=== PATIENT | male | born 1960 | race Caucasian/White ===

== ENCOUNTER 2021-07-25 20:07 | Emergency (ER) | payer MEDICARE, MEDICAID, SELFPAY ==
[2021-07-25 20:15] VITALS: BP 154/76; BP 159/85; PULSE 82; PULSE 91; RESP 20; TEMP 36.6; O2SAT 97; BMI 33.5
--- NOTE | 2021-07-25 21:17 | ED_ITS ---
HPI - Eye Problem General Chief complaint: General Medical Stated complaint: R eye pain/swelling, N/V Time Seen by Provider: 07/25/21 21:16 Source: patient Mode of arrival: EMS Limitations: no limitations History of Present Illness HPI Narrative: Patient no significant past medical history came by EMS for complaining of pain behind the right eye associated with nausea/vomiting denies abdominal pain no history of migraine no fever no chills no focal weakness , p[ain started at 16:00 sudden onset with stabbing feeling behind the right eye had some photopsia and blurred vision. Patient does have a history of hyp ertension, prostate cancer, chronic prednisone treatment, ankylosing spondylosis and hypertension has not seen eye doctor for a while Related Data Allergies Allergy/AdvReac Type Severity Reaction Status Date / Time Penicillins Allergy Unknown Verified 07/25/21 20:18 Review of Systems Review of Systems: Yes all other systems are reviewed and are negative PMFSH Past Medical History Medical History (Updated 07/26/21 @ 01:02 by Alfred Santana MD) Ankylosing spondylitis Crohn's disease Hypertension Iritis Prostate CA Social History Social History Alcohol intake: never Patient Tobacco Use Status: Former Tobacco user Use of substances other than those prescribed or required for medical reasons: No Advance Directives: No Advance Directives Information Provided: Yes Physical Exam Vital Signs: Vital Signs: Last Vital Signs Temp 97.9 F 07/25/21 21:25 Pulse 74 07/26/21 00:00 Resp 16 07/26/21 00:00 BP 124/75 07/26/21 00:00 Pulse Ox 94 07/26/21 00:00 Body Mass Index 33.5 Const: General: cooperative and healthy appearing Nutritional Appearance: average body habitus Orientation/consciousness: patient oriented x3 Limitations: no limitations HENMT: Head: Yes normal to inspection and Yes normocephalic Ears: hearing grossly normal bilaterally General nose exam: Normal external nose present Face and sinus: Yes normal facial exam Mouth: Normal oral and palatal mucosa present Eyes: General: appearance normal, both eyes and all related structures Visual Bellamy: normal visual bellamy by confrontation Eyelids: Yes eyelids normal Conjunctivae: conjunctivae normal Sclerae: sclerae normal Corneas: corneas normal Pupils: Dilated pupils (3 mm sluggish to react) on t he right and Other pupil findings (IOP R eye 60, L eye 25) EOM: EOMs intact bilaterally Direct Ophthalmoscopy: normal light reflex, no photophobia and optic disc abnormality (Very blurry disc) on the right Neck: Neck: Yes normal visual inspection Resp: Effort & Inspection: normal respiratory effort Auscultation: clear to auscultation bilaterally Cardio: Palpation: normal PMI Rate: regular rate Rhythm: regular rhythm Heart sounds: S1 normal heart sound present and S2 normal heart sound present GI: Inspection: Yes normal to inspection Palpation (GI): Soft to palpation and nontender Neuro: General: patient oriented x3 and no focal motor deficits Course Reevaluation(s) Reevaluation #1: One drop of timolol maleate 1 drop of apraclonidine instilled in the right eye and 1 drop of timolol maleate in left eye also Time: 22:15 Reevaluation #2: Patient continued to have elevated IOP eyedrops repeated 2 times last IOP was 40. Dr. Sommers want him to examine but our slit lamp is not working so Patient was taken by Dr. Sommers to his office Time: 01:05 MDM - Eye Problem MDM Narrative Medical decision making narrative: Patient with acute narrowing all glaucoma right eye with severe pain started about 6 hours ago on arrival IUP on the right eye was 60 and left was 20 mm Hg. 1 drop of each timolol and Apraclonidine instilled in the right eye case discussed Dr. Sommers advised to recheck the pressure in 30 minutes and mean cell on the drop and to call him if pressure does not decrease Slit lamp is not working Dr. Sommers will take the patient to his office Lab Data Result diagrams: 07/25/21 23:30 07/25/21 23:30 Labs: Lab Results 07/25/21 07/25/21 07/25/21 Range/Units 23:30 23:30 23:30 WBC 18.0 H (4.8-10.8) X10*3/uL RBC 3.47 L (4.60-5.80) X10*6/uL Hgb 8.1 L (14.0-18.0) g/dl Hct 27.6 L (42-52) % MCV 79.5 L (80-98) fL MCH 23.3 L (27.0-33.0) pg MCHC 29.3 L (31.0-36.0) g/dl RDW 20.5 H (11.0-16.0) % Plt Count 298 (160-400) X10*3/uL MPV 8.7 L (9.4-12.4) fL Immature Gran % (Auto) 1.1 H (0.0-0.4) % Neut % (Auto) 83.0 H (45-73) % Lymph % (Auto) 6.1 L (20-40) % [place] % (Auto) 9.6 (2-11) % Eos % (Auto) 0.0 (0-4) % Baso % (Auto) 0.2 (0-2) % Lymph # (Auto) 1.1 L (1.2-4.9) X10*3/uL [place] # (Auto) 1.7 H (0.1-1.2) X10*3/uL Eos # (Auto) 0.0 (0.0-0.4) X10*3/uL Baso # (Auto) 0.0 (0.0-0.2) X10*3/uL Abs Immat Gran (auto) 0.20 H (0.00-0.03) X10*3/uL Absolute Neuts (auto) 14.9 H (2.0-8.3) X10*3/uL Absolute Nucleated RBC 0.000 (0.0-0.012) X10*3/uL Nucleated RBC % (auto) 0.0 (0.0-0.2) /100WBC Smear Tech's Comments VERIFIED ESR 33 H (0-15) MM/HR Sodium 141 (135-145) mmol/L Potassium 5.2 H (3.3-5.1) mmol/L Chloride 107 (96-108) mmol/L Carbon Dioxide 26 (22-29) mmol/L Anion Gap 13 (12-20) BUN 19 H (9-16) mg/dL Creatinine 0.94 (0.5-1.4) mg/dL Estim Creat Clear Calc 82.7 Estimated GFR > 60 Random Glucose 131 H (60-115) mg/dL Calcium 9.1 (8.4-10.2) mg/dL Critical Care Time Critical Care Time Critical Care Time: Yes Total Critical Care Time: 40 Attestation: I spent 40 minutes of critical care, with interventions, assessments, speaking to patient, consultants Discharge Plan Discharge Clinical Impression: Glaucoma (increased eye pressure) Qualifiers: Glaucoma type: primary angle-closure Primary angle closure glaucoma type: acute Laterality: right Qualified Code(s): H40.211 - Acute angle-closure glaucoma, right eye Patient Disposition: Home, Self-Care Instructions: Glaucoma (ED) Additional Instructions: See Dr. Sommers in the office now Interventions: ED Discharge Assessment Last Done: 07/26/21 01:10 Discharge Date/Time: 07/26/21 01:10
[2021-07-25 21:25] VITALS: BP 143/77; PULSE 82; RESP 18; TEMP 36.6; O2SAT 97
--- NOTE | 2021-07-25 21:56 | PC.NURSE ---
PATIENT SEEN BY ER PROVIDER, ORDERS FOR EYE DROPS, CONTACTING PHARMACY FOR MEDICATIONS DUE TO NOT CARRYING THEM HERE IN THE ER. PHARMACY STATING THEY WILL BE BRING IT SHORTLY. PATIENT IS ALERT AND ABLE TO COMMUNICATE NEEDS. AWAITING MEDICATIONS
--- NOTE | 2021-07-25 22:15 | PC.NURSE ---
DR. BOONE TALKING TO DR PRIETO FOR CONSULT REGARDING PATIENTS EYE. PRESSURE IN THE RIGHT EYE WAS 60 PER , MD GIVING EYE DROPS TO PATIENT AND THEN WILL REPEAT PRESSURE. IF STILL HIGH THEN MD WILL CONTACT DR. PRIETO AGAIN.
[2021-07-25] MEDS: timoloL maleate 0.5 % Oph Sol 5 ML DRBTL 1 DROP EYE-BOTH (22:25)
[2021-07-25] MEDS: Apraclonidine HCl 1 % Oph Sol 1 EACH DROPERETTE 1 DROP EYE-RIGHT (22:25)
[2021-07-25] MEDS: acetaZOLAMIDE 250 MG TABLET 500 MG PO (22:36)
[2021-07-25 23:36] LABS: Basophils Percent Auto 0.2 % (0-2); Hematocrit 27.6 % (42-52); Hemoglobin 8.1 g/dl (14.0-18.0); Imm Gran Pct Auto 1.1 % (0.0-0.4); Lymphocytes Absolute Auto 1.1 X10*3/uL (1.2-4.9); Lymphocytes Percent Auto 6.1 % (20-40); MANUAL DIFF FLAG SCAN; Mean Corpuscular HGB Conc 29.3 g/dl (31.0-36.0); Mean Corpuscular Hemoglobin 23.3 pg (27.0-33.0); Mean Corpuscular Volume 79.5 fL (80-98); Mean Platelet Volume 8.7 fL (9.4-12.4); Monocytes Absolute Auto 1.7 X10*3/uL (0.1-1.2); Monocytes Percent Auto 9.6 % (2-11); Neutrophils Absolute Auto 14.9 X10*3/uL (2.0-8.3); Platelet Count 298 X10*3/uL (160-400); Red Blood Count 3.47 X10*6/uL (4.60-5.80); Red Cell Distribution Width 20.5 % (11.0-16.0); SCAN SMEAR FLAG 1
[2021-07-25 23:38] LABS: SLIDE REVIEW VERIFIED
[2021-07-25 23:54] LABS: Anion Gap 13 (12-20); Blood Urea Nitrogen 19 mg/dL (9-16); Calcium 9.1 mg/dL (8.4-10.2); Carbon Dioxide 26 mmol/L (22-29); Chloride 107 mmol/L (96-108); Creatinine Clr Calc Pharmacy 82.7; Estimated Glomerular Filt Rate > 60; Glucose Random 131 mg/dL (60-115); Potassium 5.2 mmol/L (3.3-5.1); Sodium 141 mmol/L (135-145)
[2021-07-26] VITALS: BP 124/75; PULSE 74; RESP 16; O2SAT 94
[2021-07-26 00:13] LABS: Erythrocyte Sedimentation Rate 33 MM/HR (0-15)
--- NOTE | 2021-07-26 00:41 | PC.NURSE ---
PLAN OF CARE FOR DR. PRIETO TO COME EVALUATE PATIENT.
--- NOTE | 2021-07-26 01:13 | PC.NURSE ---
DR. PRIETO ARRIVED, EQUIPMENT HERE IN DEPARTMENT WAS NOT WORKING WELL. PROVIDER WANTING PATIENT TRANSPORTED TO [address] BY WHEELCHAIR WITH ER STAFF. DISCUSSING THE SITUATION WITH DK RN IN CHARGE AND SHE MAKING THE MONORAIL HELPER AWARE OF SITUATION AND FACT THAT THIS HAS PREVIOUSLY OCCURRED WITH THIS SPECIFIC DOCTOR IN WHICH RISK MANAGEMENT HAS BEEN INVOLVED. EXPLAINING THAT ER STAFF CAN NOT TRANSPORT ER PATIENTS DOWN THE DRIVE AND BETWEEN BUILDINGS. DISCUSSING ISSUE WITH THE PROVIDERS AND THE PLAN OF CARE WILL BE TO DISCHARGE PATIENT FROM EMERGENCY DEPARTMENT AND HAVE THE PATIENT TRANSPORT SELF OVER TO [address] WHEN DISCHARGING PATIENT, DR. PRIETO TAKING PATIENT HIMSELF OVER FROM EMERGENCY DEPARTMENT TO [address] BY HIMSELF.
== END 2021-07-26 01:10 | disposition home or self-care (01) ==
PROVIDERS: Emergency Provider Internal Medicine
DX: H40.211 Acute angle-closure glaucoma, right eye (principal); I10 Essential (primary) hypertension
CPT/HCPCS: 36415; 80048; 85025; 85652; 99284

== ENCOUNTER 2022-07-18 02:25 | Emergency (ER) | payer MEDICARE, MEDICAID, SELFPAY ==
[2022-07-18 02:36] VITALS: BP 179/87; BP 180/100; PULSE 85; PULSE 90; RESP 18; TEMP 36.5; O2SAT 96; O2SAT 98; BMI 33.5
--- NOTE | 2022-07-18 03:21 | ED_ITS ---
HPI - Eye Problem General Chief complaint: Eye Problems Stated complaint: VISION CHAMGE Time Seen by Provider: 07/18/22 03:20 Source: patient Mode of arrival: ambulatory Limitations: no limitations History of Present Illness HPI Narrative: Patient with history of narrow angle glaucoma was seen here in 07/26 for acute glaucoma seen by eye doctor but not prescribe any medications comes here for both eye pain for last few days with blurred vision similar to that what happened last year Related Data Allergies Allergy/AdvReac Type Severity Reaction Status Date / Time Penicillins Allergy Unknown Verified 07/25/21 20:18 Review of Systems Review of Systems: Yes all other systems are reviewed and are negative [facility] Past Medical History Medical History Ankylosing spondylitis Crohn's disease Hypertension Iritis Prostate CA Social History Social History Alcohol intake: never Patient Tobacco Use Status: Former Tobacco user Advance Directives: No Physical Exam Vital Signs: Vital Signs: Last Vital Signs Temp 97.7 F 07/18/22 02:36 Pulse 71 07/18/22 06:28 Resp 18 07/18/22 06:28 BP 144/68 H 07/18/22 06:28 Pulse Ox 98 07/18/22 06:28 O2 Del Method 07/18/22 06:28 BMI result Body Mass Index 33.5 Appearance: Alert. Oriented X3. No acute distress. Eyes: PERRLA, No Nystagmus unable to see fundus IOP 66 in right eye and 60 in left eye blurred vision able to see hand and count fingers ENT: Pharynx normal. Oral Mucosa moist Neck: Normal inspection. Neck supple. CVS: Normal heart rate and rhythm. Pulses normal. Respiratory: No respiratory distress. Equal air entry bilateral, no wh eezing/rales/rhonchi Abdomen: Soft and nontender. Bowel sounds are present, no mass palpable, no CVA tenderness Skin: Skin warm and dry. Normal skin color. Normal skin turgor. Extremities: No lower extremity edema. No calf tenderness Neuro: Oriented X 3. No motor deficit. No sensory deficit.No cerebellar signs , cranial nerves II-XII intact Course Reevaluation(s) Reevaluation #1: IOP in right eye 56, left eye 44 after 50 min of 1st dose of apraclonidine and timolol Time: 05:15 Reevaluation #2: IOP right eye 29 left eye [address] Sommers will likely see him in the office at 08:00 o'clock will call the ER once he reaches office patient feeling better feel chest pressure blurred visions also improved Time: 07:00 Critical Care Time Critical Care Time Critical Care Time: Yes Total Critical Care Time: 40 Attestation: I spent 40 minutes of critical care, with interventions, assessments, speaking to patient, consultants, and family. Discharge Plan Discharge Clinical Impression: Acute glaucoma of both eyes Patient Disposition: Still a Patient
[2022-07-18 04:13] VITALS: BP 159/79; PULSE 75; RESP 18
[2022-07-18] MEDS: timoloL maleate 0.5 % Oph Sol 5 ML DRBTL 1 DROP EYE-BOTH (04:22)
[2022-07-18] MEDS: Apraclonidine HCl 1 % Oph Sol 1 EACH DROPERETTE 1 DROP EYE-BOTH (04:22)
[2022-07-18 06:28] VITALS: BP 144/68; PULSE 71; RESP 18; O2SAT 98
--- NOTE | 2022-07-18 06:54 | PC.NURSE ---
pt initial IOP 66 in right eye, 55 in left eye. repeat after 1 hr post eyedrops, IOP down to 56 in R eye and 44 in L eye. repeat after 1hr post second round of eyedrops, IOP down to 29 in R eye and 21 in L eye. pt to go to Dr. Barraza around 0800 this morning for follow up.
[2022-07-18 07:18] VITALS: BP 120/80; PULSE 67; RESP 24; TEMP 36.7; O2SAT 94
== END 2022-07-18 07:58 | disposition home or self-care (01) ==
PROVIDERS: Emergency Provider Internal Medicine
DX: H40.9 Unspecified glaucoma (principal); H57.13 Ocular pain, bilateral
CPT/HCPCS: 99283

== ENCOUNTER 2022-07-18 11:36 | Outpatient (REF) | payer MEDICARE, MEDICAID, SELFPAY ==
[2022-07-18 11:41] VITALS: BMI 33.5
[2022-07-18 11:42] VITALS: BP 146/87; PULSE 79; RESP 16; TEMP 36.8; O2SAT 99
== END 2022-07-18 11:37 | disposition home or self-care (01) ==
LOC: HO.MS 11:36
PROVIDERS: Visit Provider Ophthalmology
PROC: (CPT 66761; principal; 2022-07-18 12:00)
DX: H40.031 Anatomical narrow angle, right eye (principal); M45.9 Ankylosing spondylitis of unspecified sites in spine; I10 Essential (primary) hypertension; Z79.899 Other long term (current) drug therapy; Z88.0 Allergy status to penicillin
CPT/HCPCS: 66761; 99283

== ENCOUNTER 2022-07-22 14:43 | Outpatient (REF) | payer MEDICARE, MEDICAID, SELFPAY ==
[2022-07-22 14:50] VITALS: BMI 33.5
[2022-07-22 14:52] VITALS: BP 159/89; PULSE 93; RESP 16; TEMP 36.6; O2SAT 95
== END 2022-07-22 14:44 | disposition home or self-care (01) ==
LOC: HO.MS 14:43
PROVIDERS: Visit Provider Ophthalmology
PROC: (CPT 66761; principal; 2022-07-22 14:50)
DX: H40.032 Anatomical narrow angle, left eye (principal); H20.9 Unspecified iridocyclitis; I10 Essential (primary) hypertension; C61 Malignant neoplasm of prostate; R60.9 Edema, unspecified; Z88.0 Allergy status to penicillin; Z87.891 Personal history of nicotine dependence; Z79.899 Other long term (current) drug therapy
CPT/HCPCS: 66761

== ENCOUNTER 2022-08-31 09:37 | Outpatient (REF) | payer MEDICARE, MEDICAID, SELFPAY ==
[2022-08-31 11:05] LABS: Prostate Specific Antigen 10.76 ng/mL (<0.05-4.0)
== END 2022-08-31 09:38 | disposition home or self-care (01) ==
LOC: HO.LAB 09:37
PROVIDERS: PCP Internal Medicine; Visit Provider Urology
DX: C61 Malignant neoplasm of prostate (principal)
CPT/HCPCS: 36415; 84153

== ENCOUNTER 2023-10-08 14:28 | Inpatient (IN) | payer MEDICARE, MEDICAID, SELFPAY ==
[2023-10-08 14:34] VITALS: BP 160/0; PULSE 100; O2SAT 100
[2023-10-08 15:01] VITALS: BP 114/79; PULSE 98; RESP 20; TEMP 37.1; O2SAT 96; BMI 32.6
--- NOTE | 2023-10-08 21:06 | ED.NAVMDI ---
HPI - Nausea/Vomiting/Diarrhea General Chief complaint: Nausea/Vomiting/Diarrhea Stated complaint: +COVID,NAUSEA,VOMITING PER EMS Time Seen by Provider: 10/08/23 14:30 Source: patient, family (Son) and EMS Mode of arrival: EMS Limitations: no limitations History of Present Illness HPI Narrative: A 63-year-old male came in for evaluation of nausea, vomiting, lower abdominal pain, nonbloody watery diarrhea, generalized weakness, unable to take p.o. intake for diarrhea and nausea. Patient with known history of Crohn's disease that he cannot take the medicine due to intractable vomiting and nausea. Patient was tested positive for COVID 2 days ago, patient's is hospitalized currently for COVID. Related Data Allergies Allergy/AdvReac Type Severity Reaction Status Date / Time Penicillins Allergy Unknown Verified 10/08/23 15:03 Review of Systems Review of Systems: All other systems are reviewed and are negative Constitutional: Reports as per HPI and Reports no additional constitutional complaints Eyes: Reports as per HPI and Reports no additional eye complaints Reports system reviewed and no additional complaints, except as documented Cardiovascular: Reports as per HPI and Reports no additional cardiovascular complaints Respiratory: Reports as per HPI and Reports no additional respiratory complaints Gastrointestinal: Reports as per HPI and Reports no additional gastrointestinal complaints Genitourinary: Reports no additional female genitourinary complaints Musculoskeletal: Reports no additional musculoskeletal complaints Skin/Breast: Reports system reviewed and no additional complaints, except as docu Psychiatric: Reports no additional psychiatric complaints Endocrine: Reports no additional endocrine complaints Hematologic/Lymphatic: Reports no additional hematologic/lymphatic complaints Allergic/Immunologic: Reports no additional allergic/immunologic complaints Reports system reviewed and no additional complaints, except as documented and Reports Abnormal speech present PMFSH Past Medical History Onset Date is defined in the Problem List Problems that require an onset date and time if occurred within 24 hrs of arrival to the ED Aortic Dissection and Rupture; Neurologic impairment; Cardiopulmonary Arrest; Endotracheal Intubation; Insertion or Replacement of Mechanical Circulatory Assist Device Medical History Iritis Prostate CA Ankylosing spondylitis Crohn's disease Hypertension Social History Social History Alcohol intake: former Patient Tobacco Use Status: Former Tobacco user Smoked in Last 30 Days: No Use of substances other than those prescribed or required for medical reasons: No Advance Directives: No Advance Directives Information Provided: No Physical Exam Vital Signs: Vital Signs: Last Vital Signs Temp 98.8 F 10/08/23 15:01 Pulse 98 10/08/23 15:01 Resp 20 10/08/23 15:01 BP 114/79 10/08/23 15:01 Pulse Ox 96 10/08/23 15:01 O2 Del Method Room Air 10/08/23 15:01 BMI result Body Mass Index 32.6 Vital signs have been reviewed and appear to be correct. Blood pressure elevated. Heart rate normal. Respiratory rate normal. Temperature normal. Oxygen saturation normal. Appearance: Alert. Oriented X3. No acute distress. Head: Normal external exam. Normocephalic. Atraumatic. No [place] signs noted. No raccoon eyes noted Eyes: PERRLA. EOMI. Conjunctiva and sclera normal. Eyelids normal. ENT: TM's Normal. Pharynx normal. Uvula midline. Moist mucous membranes. No trismus noted. No drooling noted. No muffled voice noted. Neck: Normal inspection. Neck supple. FROM. No adenopathy. Thyroid Normal. No meningeal signs. No neck mass noted. CVS: Normal heart rate and rhythm. Heart sound normal. No murmurs noted. Pulses normal throughout. Respiratory: No respiratory distress. Painless inspiration. Breath sounds normal. No wheezes/rales/rhonchi noted. Chest nontender. No accessory muscle usage noted or decreased air movement noted. Abdomen: Soft, lower abdominal tenderness, no guarding, no rebound tenderness. Bowel sounds normal in all 4 quadrants. No distention noted. No organomegaly noted. No visible injury noted. Back: No CVA tenderness. Full range of motion noted. Skin: Skin warm and dry. Normal skin color. Normal skin turgor. No rashes/lesions/lacerations noted. Extremities: No lower extremity edema. Extremities exhibit normal range of motion. Extremities nontender. Neuro: Oriented X 3. Cranial nerve exam: II-XII are grossly intact No motor deficit. No sensory deficit. Reflexes normal. Course Reevaluation(s) Reevaluation #1: 63-year-old male positive for COVID came in for nausea and vomiting with abdominal pain patient was worry about Crohn's disease exacerbation CT of the abdomen and pelvis showed no exacerbation of Crohn's disease showing bilateral lung infiltrate. Patient meet criteria for SIRS but no severe sepsis or septic shock patient will receive antibiotic and will admit the patient. Time: 00:37 Medications Administered Discontinued Medications Generic Name Dose Route Start Last Admin Trade Name Freq PRN Reason Stop Dose Admin Al Hydroxide/Mg Hydroxide 30 ml 10/08/23 21:03 10/08/23 22:08 Magnesium Hydrox/Alum Hydrox 30 Ml Oral.Susp PO 10/08/23 21:04 30 ml ONCE ONE Administration Famotidine 20 mg 10/08/23 21:03 10/08/23 22:09 Famotidine/Pf 20 Mg/2 Ml Vial IVPUSH 10/08/23 21:04 20 mg ONCE ONE Administration Sodium Chloride 1,000 mls @ 999 mls/hr 10/08/23 21:06 10/09/23 00:08 Ns IV 10/08/23 22:06 Infused .Q1H1M ONE Infusion Ketorolac Tromethamine 30 mg 10/08/23 21:03 10/08/23 22:09 Ketorolac Tromethamine 30 Mg/Ml Vial IVPUSH 10/08/23 21:04 30 mg ONCE ONE Administration Metoclopramide HCl 10 mg 10/08/23 21:05 10/08/23 22:10 Metoclopramide Hcl 10 Mg/2 Ml Vial IVPUSH 10/08/23 21:06 10 mg ONCE ONE Administration Medical Decision Making Differential Diagnosis Differential Diagnoses: The differential diagnosis associated with the presentation includes (Crohn's disease, colitis, pneumonia, pneumothorax, COVID, RSV, influenza, dehydration, electrolyte abnormality, severe anemia.) Admission/Observation Consideration of admission/observation: Escalation of care including admission/observation considered Consult Healthcare Provider Management of the patient was discussed with: Hospitalist (Dr. Lopez) Lab Data MDM Lab Attestation statement: I reviewed the patient's lab results. 10/08/23 15:39 10/08/23 15:39 Labs: Lab Results 10/08/23 10/08/23 Range/Units 15:39 21:19 WBC 12.5 H (4.8-10.8) X10*3/uL RBC 4.56 L (4.60-5.80) X10*6/uL Hgb 13.8 L (14.0-18.0) g/dl Hct 43.0 (42.0-52.0) % MCV 94.3 (80.0-98.0) fL MCH 30.3 (27.0-33.0) pg MCHC 32.1 (31.0-36.0) g/dl RDW 16.9 H (11.0-16.0) % Plt Count 212 (160-400) X10*3/uL MPV 9.9 (9.4-12.4) fL Immature Gran % (Auto) 1.0 H (0.0-0.4) % Neut % (Auto) 82.1 H (45-73) % Lymph % (Auto) 6.8 L (20-40) % [place] % (Auto) 9.9 (2-11) % Eos % (Auto) 0.1 (0-4) % Baso % (Auto) 0.1 (0-2) % Lymph # (Auto) 0.9 L (1.2-4.9) X10*3/uL [place] # (Auto) 1.2 (0.1-1.2) X10*3/uL Eos # (Auto) 0.0 (0.0-0.4) X10*3/uL Baso # (Auto) 0.0 (0.0-0.2) X10*3/uL Abs Immat Gran (auto) 0.12 H (0.00-0.03) X10*3/uL Absolute Neuts (auto) 10.3 H (2.0-8.3) x10*3/uL Absolute Nucleated RBC 0.000 (0.0-0.012) X10*3/uL Nucleated RBC % (auto) 0.0 (0.0-0.2) /100WBC Sodium 141 (135-145) mmol/L Potassium 4.0 D (3.3-5.1) mmol/L Chloride 110 H (96-108) mmol/L Carbon Dioxide 21 L (22-29) mmol/L Anion Gap 14 (12-20) BUN 21 H (9-16) mg/dL Creatinine 1.00 (0.5-1.4) mg/dL Estim Creat Clear Calc 74.8 Estimated GFR > 60 Random Glucose 141 H (60-115) mg/dL Calcium 9.2 (8.4-10.2) mg/dL Magnesium 1.8 (1.6-2.6) mg/dL Total Bilirubin 0.4 (0.0-1.0) mg/dL Direct Bilirubin 0.2 (0.0-0.5) mg/dL AST 25 (5-37) U/L ALT 12 (0-40) U/L Alkaline Phosphatase 48 (39-117) U/L Total Protein 7.7 (6.5-8.0) g/dL Albumin 3.9 (3.5-5.0) g/dL Lipase 27 (8-78) U/L Influenza Type A (PCR) NEGATIVE (Negative) Influenza Type B (PCR) NEGATIVE (Negative) RSV RNA Qual (PCR) NEGATIVE (Negative) SARS-CoV-2 RNA (RT-PCR) POSITIVE A (Negative) Independent Interpretation I performed an independent interpretation of an: Plain X-Ray (Chest:Bibasilar infiltrates, better appreciated on the CT scan. ) and CT Scan (Abdomen& pelvis:1. New patchy airspace disease at both lung bases. Atypical infectious etiology would be favored with this appearance. 2. Chronic appearing changes otherwise as described. ) Radiology Impression Discussion of test interpretation with radiology: I have reviewed the radiologist's reading. Discharge Plan Discharge Clinical Impression: COVID-19 virus infection, Bilateral pneumonia Patient Disposition: Admitted As Inpatient
[2023-10-09 00:51] VITALS: BP 121/79; PULSE 89; RESP 16; TEMP 37.4; O2SAT 93
--- NOTE | 2023-10-09 01:01 | PC.NURSE ---
PT laying in bed, first set of blood cultures obtained as well as lactic acid. Offers no complaints @ this time. VSS. Awaiting bed assignment.
--- NOTE | 2023-10-09 01:13 | PM.IMHP ---
History of Present Illness Date of Service: 10/09/23 Chief Complaint: Fever, cough, diarrhea This is a 63-year-old male with pertinent history of essential hypertension, prostate cancer, psoriasis, Crohn's disease who presents to the emergency department for evaluation of fever, cough, generalized weakness. Patient states his whole family tested positive for COVID-19. His is in admitted at [facility] for COVID-19 pneumonia. He has been having a dry cough that started about 7-10 days prior to presentation. It subsequently changed to being productive over the last 2 days with yellowish sputum production. Has been having associated fevers and chills. Also has been having nausea, vomiting and nonbloody diarrhea. Endorses malaise and generalized body ache. No chest discomfort, palpitations, changes in urinary habits. Admits generalized abdominal discomfort. In the emergency department, patient tested positive for COVID-19. He was found to be septic with imaging concerning for pneumonia. Review of Systems Constitutional: Constitutional: Reports chills, Reports fatigue, Reports fever(s), Reports lethargy, Reports malaise, Reports poor appetite and Reports weakness Cardiovascular: Cardiovascular: Reports no additional cardiovascular complaints Respiratory: Respiratory: Reports cough Gastrointestinal: Gastrointestinal: Reports loose stools, Reports nausea and Reports vomiting Genitourinary: Genitourinary: Reports no additional male genitourinary complaints Musculoskeletal: Musculoskeletal: Reports muscle weakness Neurologic: Reports weakness Endocrine: Endocrine: Reports fatigue [facility] Medical History Iritis Prostate CA Ankylosing spondylitis Crohn's disease Hypertension Pertinent family history: No family history of early CAD Social History Alcohol intake: former Patient Tobacco Use Status: Former Tobacco user Smoked in Last 30 Days: No Use of substances other than those prescribed or required for medical reasons: No Advance Directives: No Advance Directives Information Provided: No Meds Allergies Allergy/AdvReac Type Severity Reaction Status Date / Time Penicillins Allergy Unknown Verified 10/08/23 15:03 Active Medications: Current Medications Azithromycin 500 mg/ Sodium (Chloride) 250 mls @ 125 mls/hr IV ONCE ONE Stop: 10/09/23 02:27 Physical Exam Vital Signs and Narrative: Vital Signs: Last Vital Signs Temp 99.3 F 10/09/23 00:51 Pulse 89 10/09/23 00:51 Resp 16 10/09/23 00:51 BP 121/79 10/09/23 00:51 Pulse Ox 93 10/09/23 00:51 O2 Del Method Room Air 10/09/23 00:51 BMI result Body Mass Index 32.6 Middle-aged male lying in bed in mild distress Neck supple, no JVD Regular rate and rhythm, S1-S2 heard Bilateral crackles without wheezing Abdomen soft nontender, no guarding, no rigidity Patient is awake, alert and oriented to self, place, time and person ; no focal motor deficit Psych: Normal mood No pedal edema Results Labs 10/08/23 15:39 10/08/23 15:39 Labs: Laboratory Results - last 24 hr 10/08/23 10/08/23 15:39 21:19 MCV 94.3 MCH 30.3 MCHC 32.1 RDW 16.9 H Plt Count 212 MPV 9.9 Immature Gran % (Auto) 1.0 H Neut % (Auto) 82.1 H Lymph % (Auto) 6.8 L Schuyler % (Auto) 9.9 Eos % (Auto) 0.1 Baso % (Auto) 0.1 Lymph # (Auto) 0.9 L Schuyler # (Auto) 1.2 Eos # (Auto) 0.0 Baso # (Auto) 0.0 Abs Immat Gran (auto) 0.12 H Absolute Neuts (auto) 10.3 H Absolute Nucleated RBC 0.000 Nucleated RBC % (auto) 0.0 Anion Gap 14 Estim Creat Clear Calc 74.8 Estimated GFR > 60 Random Glucose 141 H Calcium 9.2 Magnesium 1.8 Total Bilirubin 0.4 Direct Bilirubin 0.2 AST 25 ALT 12 Alkaline Phosphatase 48 Total Protein 7.7 Albumin 3.9 Lipase 27 Influenza Type A (PCR) NEGATIVE Influenza Type B (PCR) NEGATIVE RSV RNA Qual (PCR) NEGATIVE SARS-CoV-2 RNA (RT-PCR) POSITIVE A Imaging Radiologist's Impressions: Impressions Abdomen/Pelvis CT 10/08/23 21:21 IMPRESSION: 1. New patchy airspace disease at both lung bases. Atypical infectious etiology would be favored with this appearance. 2. Chronic appearing changes otherwise as described. Chest X-Ray 10/08/23 23:32 IMPRESSION: Bibasilar infiltrates, better appreciated on the CT scan. Assessment and Plan (1) Bilateral pneumonia: Status: Acute (2) COVID-19 virus infection: Status: Acute Plan This is a 63-year-old male with pertinent history of essential hypertension, prostate cancer, psoriasis, Crohn's disease who presents to the emergency department for evaluation of fever, cough, generalized weakness. #. Sepsis due to COVID-19 pneumonia with concerns for bacterial superinfection: Will admit patient and initiate empiric IV antibiotics. Resuscitated with IV crystalloids. Lactic acid and blood culture obtained. Sputum culture pending #. Vomiting and diarrhea, likely in the setting of COVID-19: Supportive care. Obtaining stool studies #. Essential hypertension: Hold antihypertensives in the setting of sepsis, resume as appropriate Med rec pending DVT prophylaxis: Lovenox Full code Admit as inpatient and will require two night minimum hospital stay for IV antibiotics (as above), which is not possible in a lesser acute setting. Quality Stroke Does the patient have a stroke diagnosis?: No VTE Prior VTE?: No VTE Risk Level:: Medical - moderate - high VTE Device Contraindication: Treatment Not Indicated VTE Drug Contraindication: N/A - Med Ordered
[2023-10-09 01:16] LABS: Lactic Acid 0.8 mmol/L (0.5-2.0)
--- NOTE | 2023-10-09 03:40 | MHC.EDTECH ---
[place] [facility] changed into hospital attire, belonging list completed and copy placed on chart. Patient ambulated to bathroom with a steady gait, Urine,and Stool sample was collected and sent to lab.
[2023-10-09 06:14] VITALS: BP 137/91; PULSE 95; RESP 18; TEMP 37.7; O2SAT 95
--- NOTE | 2023-10-09 06:14 | MHC.EDTECH ---
Hourly rounds and vitals completed,patient ambulated to bathroom with a steady gait.call mcdonough within reach
--- NOTE | 2023-10-09 08:17 | PHA.MEDREC ---
Pharmacy Consult ? Medication Reconciliation Pharmacy has completed the medication reconciliation. Spoke to pateint at bedside, he was able to name all medications and timing unprompted. Did note that he takes his sulfasalazine as 4 tabs BID instead of 2 tabs QID. He also states he was due for his Stelara injection yesterday
[2023-10-09 08:23] VITALS: BP 130/81; PULSE 99; RESP 20; TEMP 37.4; O2SAT 93
--- NOTE | 2023-10-09 08:33 | PC.NURSE ---
pt is alert and oriented, skin pwd, respirations even and unlabored, ls clear, pt denies pain at this time, just states not having any appetite-pt did not eat any of his breakfast but is attempting to drink, denies nausea, vs stable
--- NOTE | 2023-10-09 09:28 | HO.PM.IMPN ---
Subjective Subjective Date of Service: 10/09/23 Interval History: diarrhea, feeling weak Physical Exam Vital Signs: Vital Signs: Last Vital Signs Temp 99.9 F 10/09/23 06:14 Pulse 99 10/09/23 08:23 Resp 20 10/09/23 08:23 BP 130/81 10/09/23 08:23 Pulse Ox 93 10/09/23 08:23 O2 Del Method Room Air 10/09/23 08:23 BMI result Body Mass Index 32.6 Appearance: Alert. Oriented X3. No acute distress. Head: Normal external exam. Normocephalic. Atraumatic. No Caballero signs noted. No raccoon eyes noted Eyes: PERRLA. EOMI. Conjunctiva and sclera normal. Eyelids normal. ENT: TM's Normal. Pharynx normal. Uvula midline. Moist mucous membranes. No trismus noted. No drooling noted. No muffled voice noted. Neck: Normal inspection. Neck supple. FROM. No adenopathy. Thyroid Normal. No meningeal signs. No neck mass noted. CVS: Normal heart rate and rhythm. Heart sound normal. No murmurs noted. Pulses normal throughout. Respiratory: No respiratory distress. Painless inspiration. Breath sounds normal. No wheezes/rales/rhonchi noted. Chest nontender. No accessory muscle usage noted or decreased air movement noted. Abdomen: Soft, lower abdominal tenderness, no guarding, no rebound tenderness. Bowel sounds normal in all 4 quadrants. No distention noted. No organomegaly noted. No visible injury noted. Back: No CVA tenderness. Full range of motion noted. Skin: Skin warm and dry. Normal skin color. Normal skin turgor. No rashes/lesions/lacerations noted. Extremities: No lower extremity edema. Extremities exhibit normal range of motion. Extremities nontender. Neuro: Oriented X 3. Cranial nerve exam: II-XII are grossly intact No motor deficit. No sensory deficit. Reflexes normal. Objective Data Active Medications Acetaminophen (Acetaminophen 325 Mg Tablet) 650 mg PO Q6H PRN PRN Reason: Pain, Mild (Pain Scale 1-3) Allopurinol (Allopurinol 100 Mg Tablet) 100 mg PO BEDTIME [facility] Enoxaparin Sodium (Enoxaparin Sodium 40 Mg/0.4 Ml Syringe) 40 mg SUBCUT Q24H ANGELA Last Admin: 10/09/23 08:30 Dose: 40 mg Documented By: MAGGIE Famotidine (Famotidine 20 Mg Tablet) 40 mg PO DAILY [facility] Folic Acid (Folic Acid 1 Mg Tablet) 1 mg PO DAILY [facility] Ceftriaxone Sodium 1 gm/ (Sodium Chloride) 50 mls @ 100 mls/hr IV Q24H [facility] Lisinopril (Lisinopril 20 Mg Tablet) 20 mg PO BID [facility]; Protocol Loperamide HCl (Loperamide Hcl 2 Mg Capsule) 2 mg PO Q4H PRN PRN Reason: Diarrhea Melatonin (Melatonin 3 Mg Tablet) 6 mg PO BEDTIME PRN PRN Reason: Insomnia Ondansetron HCl (Ondansetron Hcl 4 Mg/2 Ml Vial) 4 mg IVPUSH Q8H PRN PRN Reason: Nausea and Vomiting Prednisone (Prednisone 20 Mg Tablet) 60 mg PO DAILY [facility] Sodium Chloride (0.9 % Sodium Chloride Flush 3 Ml Syringe) 3 ml IVFLUSH QSHIFT [facility] Last Admin: 10/09/23 08:25 Dose: 3 ml Documented By: MAGGIE Sulfasalazine (Sulfasalazine 500 Mg Tablet) 2,000 mg PO BID [facility] Vitamin D (Cholecalciferol (Vitamin D3) 25 Mcg Tablet) 50 mcg PO DAILY [facility] Labs 10/09/23 04:56 10/09/23 04:56 Labs: Laboratory Results - last 24 hr 10/08/23 10/08/23 10/09/23 15:39 21:19 00:59 MCV 94.3 MCH 30.3 MCHC 32.1 RDW 16.9 H Plt Count 212 MPV 9.9 Immature Gran % (Auto) 1.0 H Neut % (Auto) 82.1 H Lymph % (Auto) 6.8 L Camp % (Auto) 9.9 Eos % (Auto) 0.1 Baso % (Auto) 0.1 Lymph # (Auto) 0.9 L Camp # (Auto) 1.2 Eos # (Auto) 0.0 Baso # (Auto) 0.0 Abs Immat Gran (auto) 0.12 H Absolute Neuts (auto) 10.3 H Absolute Nucleated RBC 0.000 Nucleated RBC % (auto) 0.0 Anion Gap 14 Estim Creat Clear Calc 74.8 Estimated GFR > 60 Random Glucose 141 H Lactic Acid 0.8 Calcium 9.2 Magnesium 1.8 Total Bilirubin 0.4 Direct Bilirubin 0.2 AST 25 ALT 12 Alkaline Phosphatase 48 Total Protein 7.7 Albumin 3.9 Lipase 27 Urine Color Urine Appearance Urine pH Ur Specific [place] Urine Protein Urine Glucose (UA) Urine Ketones Urine Blood Urine Nitrite Ur Leukocyte Esterase Urine RBC Urine WBC Ur Squamous Epith Cells Urine Bacteria Hyaline Casts Granular Casts Influenza Type A (PCR) NEGATIVE Influenza Type B (PCR) NEGATIVE RSV RNA Qual (PCR) NEGATIVE SARS-CoV-2 RNA (RT-PCR) POSITIVE A 10/09/23 10/09/23 03:37 04:56 MCV 96.5 MCH 30.1 MCHC 31.2 RDW 17.0 H Plt Count 201 MPV 9.9 Immature Gran % (Auto) 0.7 H Neut % (Auto) 83.3 H Lymph % (Auto) 6.9 L Camp % (Auto) 9.0 Eos % (Auto) 0.0 Baso % (Auto) 0.1 Lymph # (Auto) 0.8 L Camp # (Auto) 1.0 Eos # (Auto) 0.0 Baso # (Auto) 0.0 Abs Immat Gran (auto) 0.08 H Absolute Neuts (auto) 9.3 H Absolute Nucleated RBC 0.000 Nucleated RBC % (auto) 0.0 Anion Gap 14 Estim Creat Clear Calc 84.1 Estimated GFR > 60 Random Glucose 107 Lactic Acid Calcium 8.4 D Magnesium Total Bilirubin Direct Bilirubin AST ALT Alkaline Phosphatase Total Protein Albumin Lipase Urine Color Dark Yellow Urine Appearance Turbid Urine pH 5.5 Ur Specific [place] >= 1.030 H Urine Protein 100 (2+) H Urine Glucose (UA) Negative Urine Ketones 15 Urine Blood Trace H Urine Nitrite Positive H Ur Leukocyte Esterase Trace H Urine RBC 3-5 H Urine WBC 0-5 Ur Squamous Epith Cells 3-5 Urine Bacteria 1+ Hyaline Casts 6-10 Granular Casts Present Influenza Type A (PCR) Influenza Type B (PCR) RSV RNA Qual (PCR) SARS-CoV-2 RNA (RT-PCR) Assessment and Plan (1) COVID-19 virus infection: Status: Acute Plan 63M PMH htn, prostate cancer, psoriasis, crohns, recent covid 1 week ptp, presented with weakness, diarrhea viral sepsis due to covid 19 symptomatic management not hypoxic uti rocephin, follow up cultures crohns will double prednisone in acute illness sulfasalazine htn lisinopril dvt prophylaxis - lovenox full code reason for continued hospitalization:still feeling terrible Quality Stroke Does the patient have a stroke diagnosis?: No VTE Prior VTE?: No VTE Risk Level:: Medical - moderate - high VTE Device Contraindication: Treatment Not Indicated VTE Drug Contraindication: N/A - Med Ordered
--- NOTE | 2023-10-09 10:21 | PC.NURSE ---
waiting for pharmacy to bring up a medication
--- NOTE | 2023-10-09 13:20 | PC.NURSE ---
Pt requested lunch tray on arrival to overflow unit, kitchen called by RN
[2023-10-09 14:09] VITALS: BP 120/75; PULSE 82; RESP 18; TEMP 36.6; O2SAT 94
[2023-10-09 16:37] VITALS: BP 113/74; PULSE 88; RESP 19; TEMP 37; O2SAT 94
[2023-10-09 18:54] VITALS: BP 132/72; PULSE 88; RESP 19; TEMP 36.7; O2SAT 94
[2023-10-10] VITALS (8 sets, daily range): BP systolic 118–166; BP diastolic 64–83; PULSE 75–103; RESP 18–20; TEMP 36.1–37.1; O2SAT 92–94
[2023-10-10 08:56] LABS: Anion Gap 11 (12-20); Blood Urea Nitrogen 21 mg/dL (9-16); Calcium 9.1 mg/dL (8.4-10.2); Carbon Dioxide 24 mmol/L (22-29); Chloride 111 mmol/L (96-108); Creatinine Clr Calc Pharmacy 94.7; Estimated Glomerular Filt Rate > 60; Glucose Fasting 73 mg/dL (60-99); Potassium 4.1 mmol/L (3.3-5.1); Sodium 142 mmol/L (135-145)
--- NOTE | 2023-10-10 09:51 | MHC.CM.PN ---
IMM 10/10/23, Pt is independent, he is the caregiver for his , does cooking, cleaning, med management, drives to appts. He has not used [facility], been to [facility] or use med equipment. He will complete HCP here. Family to transport home upon DC. PCP is Lj Hua. CM will follow and assist with DC planning.
--- NOTE | 2023-10-10 10:15 | HO.PM.IMPN ---
Subjective Subjective Date of Service: 10/10/23 Interval History: diarrhea, feeling weak Physical Exam Vital Signs: Vital Signs: Last Vital Signs Temp 98 F 10/10/23 08:00 Pulse 103 H 10/10/23 08:00 Resp 18 10/10/23 08:00 BP 143/77 H 10/10/23 08:00 Pulse Ox 92 10/10/23 08:00 O2 Del Method Room Air 10/10/23 08:00 BMI result Body Mass Index 32.6 Appearance: Alert. Oriented X3. No acute distress. Head: Normal external exam. Normocephalic. Atraumatic. No Caballero signs noted. No raccoon eyes noted Eyes: PERRLA. EOMI. Conjunctiva and sclera normal. Eyelids normal. ENT: TM's Normal. Pharynx normal. Uvula midline. Moist mucous membranes. No trismus noted. No drooling noted. No muffled voice noted. Neck: Normal inspection. Neck supple. FROM. No adenopathy. Thyroid Normal. No meningeal signs. No neck mass noted. CVS: Normal heart rate and rhythm. Heart sound normal. No murmurs noted. Pulses normal throughout. Respiratory: No respiratory distress. Painless inspiration. Breath sounds normal. No wheezes/rales/rhonchi noted. Chest nontender. No accessory muscle usage noted or decreased air movement noted. Abdomen: Soft, lower abdominal tenderness, no guarding, no rebound tenderness. Bowel sounds normal in all 4 quadrants. No distention noted. No organomegaly noted. No visible injury noted. Back: No CVA tenderness. Full range of motion noted. Skin: Skin warm and dry. Normal skin color. Normal skin turgor. No rashes/lesions/lacerations noted. Extremities: No lower extremity edema. Extremities exhibit normal range of motion. Extremities nontender. Neuro: Oriented X 3. Cranial nerve exam: II-XII are grossly intact No motor deficit. No sensory deficit. Reflexes normal. Objective Data Active Medications Acetaminophen (Acetaminophen 325 Mg Tablet) 650 mg PO Q6H PRN PRN Reason: Pain, Mild (Pain Scale 1-3) Last Admin: 10/09/23 19:57 Dose: 650 mg Documented By: ORAL Allopurinol (Allopurinol 100 Mg Tablet) 100 mg PO BEDTIME [facility] Last Admin: 10/09/23 19:51 Dose: 100 mg Documented By: ORAL Enoxaparin Sodium (Enoxaparin Sodium 40 Mg/0.4 Ml Syringe) 40 mg SUBCUT Q24H [facility] Last Admin: 10/10/23 09:26 Dose: 40 mg Documented By: KAMERON Famotidine (Famotidine 20 Mg Tablet) 40 mg PO DAILY [facility] Last Admin: 10/10/23 09:28 Dose: 40 mg Documented By: KAMERON Folic Acid (Folic Acid 1 Mg Tablet) 1 mg PO DAILY [facility] Last Admin: 10/10/23 09:29 Dose: 1 mg Documented By: KAMERON Lisinopril (Lisinopril 20 Mg Tablet) 20 mg PO BID [facility]; Protocol Last Admin: 10/10/23 09:29 Dose: 20 mg Documented By: KAMERON Loperamide HCl (Loperamide Hcl 2 Mg Capsule) 2 mg PO Q4H PRN PRN Reason: Diarrhea Last Admin: 10/10/23 09:26 Dose: 2 mg Documented By: KAMERON Melatonin (Melatonin 3 Mg Tablet) 6 mg PO BEDTIME PRN PRN Reason: Insomnia Ondansetron HCl (Ondansetron Hcl 4 Mg/2 Ml Vial) 4 mg IVPUSH Q8H PRN PRN Reason: Nausea and Vomiting Prednisone (Prednisone 20 Mg Tablet) 60 mg PO DAILY [facility] Last Admin: 10/10/23 09:28 Dose: 60 mg Documented By: KAMERON Sodium Chloride (0.9 % Sodium Chloride Flush 3 Ml Syringe) 3 ml IVFLUSH QSHIFT [facility] Last Admin: 10/10/23 09:29 Dose: 3 ml Documented By: KAMERON Sulfasalazine (Sulfasalazine 500 Mg Tablet) 2,000 mg PO BID [facility] Last Admin: 10/10/23 09:28 Dose: 2,000 mg Documented By: KAMERON Vitamin D (Cholecalciferol (Vitamin D3) 25 Mcg Tablet) 50 mcg PO DAILY [facility] Last Admin: 10/10/23 09:26 Dose: 50 mcg Documented By: KAMERON Labs 10/10/23 07:38 10/10/23 07:38 Labs: Laboratory Results - last 24 hr 10/09/23 10/10/23 03:37 07:38 MCV 96.1 MCH 30.3 MCHC 31.6 RDW 16.8 H Plt Count 240 MPV 9.8 Absolute Nucleated RBC 0.000 Nucleated RBC % (auto) 0.0 Anion Gap 11 L Estim Creat Clear Calc 94.7 Estimated GFR > 60 Fasting Glucose 73 Calcium 9.1 D Stl C. cayetanensis PCR Not Detected Stool Rotavirus A PCR Not Detected Stl Adenov F 40/41 PCR Not Detected Stool Astrovirus (PCR) Not Detected Stool Campylobacter PCR Not Detected Stool Cryptosporidium PCR Not Detected Stl Sh Tox Pr E STEC PCR Not Detected Stool E coli O157 PCR Not applicable Stl Enterotoxigenic E PCR Not Detected Stool EPEC (PCR) Not Detected Stool EAEC (PCR) Not Detected Stl E. histolytica PCR Not Detected Stool Giardia Lamblia PCR Not Detected Stl P. shigelloides PCR Not Detected Stool Salmonella PCR Not Detected Stool Sapovirus (PCR) Not Detected Stl Shigella/EIEC PCR Not Detected St Y.enterocolitica PCR Not Detected Stool Vibrio (PCR) Not Detected Stl Vibrio cholerae PCR Not Detected Stl Norovirus GI/GII PCR Not Detected Microbiology Microbiology Results: Microbiology 10/09/23 Unknown Urine Culture - Final Urine clean catch - Urine johansen top No growth. 10/09/23 01:12 Blood Culture - Preliminary Blood - Venous No growth after 24 hours. 10/09/23 00:59 Blood Culture - Preliminary Blood - Venous No growth after 24 hours. Assessment and Plan (1) COVID-19 virus infection: Status: Acute Plan 63M PMH htn, prostate cancer, psoriasis, crohns, recent covid 1 week ptp, presented with weakness, diarrhea viral sepsis due to covid 19 symptomatic management not hypoxic positive ua culture negative, asypmtomatic, will dc antibiotics crohns continue doubled prednisone in acute illness sulfasalazine debility pt eval htn lisinopril dvt prophylaxis - lovenox full code reason for continued hospitalization:still feeling terrible Quality Stroke Does the patient have a stroke diagnosis?: No VTE Prior VTE?: No VTE Risk Level:: Medical - moderate - high VTE Device Contraindication: Treatment Not Indicated VTE Drug Contraindication: N/A - Med Ordered
[2023-10-11 03:02] VITALS: BP 138/88; PULSE 81; RESP 20; TEMP 37.2; O2SAT 93
[2023-10-11 07:49] VITALS: BP 142/91; PULSE 69; RESP 18; TEMP 36.2; O2SAT 94
--- NOTE | 2023-10-11 09:33 | PM.DS ---
DS: Providers Provider Date of Service: 10/11/23 Date of admission: 10/09/23 01:12 Primary care physician: Lj Hua MD DS: Diagnosis Discharge Diagnosis (1) COVID-19 virus infection: Status: Acute DS: Summary Hospital Course Hospital Course: from initial hpi: 63-year-old male with pertinent history of essential hypertension, prostate cancer, psoriasis, Crohn's disease who presents to the emergency department for evaluation of fever, cough, generalized weakness. Patient states his whole family tested positive for COVID-19. His is in admitted at [facility] for COVID-19 pneumonia. He has been having a dry cough that started about 7-10 days prior to presentation. It subsequently changed to being productive over the last 2 days with yellowish sputum production. Has been having associated fevers and chills. Also has been having nausea, vomiting and nonbloody diarrhea. Endorses malaise and generalized body ache. No chest discomfort, palpitations, changes in urinary habits. Admits generalized abdominal discomfort. In the emergency department, patient tested positive for COVID-19. He was found to be septic with imaging concerning for pneumonia. hospital course: Patient was admitted for viral sepsis due to COVID-19. He was not hypoxic and was treated symptomatically. He was noted to have a positive urinalysis but was asymptomatic and cultures were negative so antibiotics were discontinued. For history of Crohn's his prednisone was doubled to 60 mg daily for stress dosing and acute illness, he was continued on sulfasalazine. He will continue stress dose for 3 more days. For debility was seen by physical therapy recommended home PT. For hypertension was continued on lisinopril. Patient is feeling better will be discharged home. Time Attestation Discharge coordination time: Greater than 30 minutes Quality: Safe Use of Opioids Does Pt have an Active Cancer Diagnosis on the Problem List?: No Quality: Stroke Does the patient have a stroke diagnosis?: No Physical Exam Vital Signs: Vital Signs: Last Vital Signs Temp 97.1 F 10/11/23 07:49 Pulse 69 10/11/23 07:49 Resp 18 10/11/23 07:49 BP 142/91 H 10/11/23 07:49 Pulse Ox 94 10/11/23 07:49 O2 Del Method Room Air 10/11/23 07:49 BMI result Body Mass Index 32.6 Appearance: Alert. Oriented X3. No acute distress. Head: Normal external exam. Normocephalic. Atraumatic. No Caballero signs noted. No raccoon eyes noted Eyes: PERRLA. EOMI. Conjunctiva and sclera normal. Eyelids normal. ENT: TM's Normal. Pharynx normal. Uvula midline. Moist mucous membranes. No trismus noted. No drooling noted. No muffled voice noted. Neck: Normal inspection. Neck supple. FROM. No adenopathy. Thyroid Normal. No meningeal signs. No neck mass noted. CVS: Normal heart rate and rhythm. Heart sound normal. No murmurs noted. Pulses normal throughout. Respiratory: No respiratory distress. Painless inspiration. Breath sounds normal. No wheezes/rales/rhonchi noted. Chest nontender. No accessory muscle usage noted or decreased air movement noted. Abdomen: Soft, lower abdominal tenderness, no guarding, no rebound tenderness. Bowel sounds normal in all 4 quadrants. No distention noted. No organomegaly noted. No visible injury noted. Back: No CVA tenderness. Full range of motion noted. Skin: Skin warm and dry. Normal skin color. Normal skin turgor. No rashes/lesions/lacerations noted. Extremities: No lower extremity edema. Extremities exhibit normal range of motion. Extremities nontender. Neuro: Oriented X 3. Cranial nerve exam: II-XII are grossly intact No motor deficit. No sensory deficit. Reflexes normal. DS: Data Data Completed and Pending Labs on day of discharge: Preliminary micro results at discharge 10/09/23 01:12 Blood Culture - Preliminary Blood - Venous No growth after 48 hours. 10/09/23 00:59 Blood Culture - Preliminary Blood - Venous No growth after 48 hours. Discharge Plan Discharge Anticipated Discharge Date/Time: 10/11/23 09:31 Patient Disposition: Home Health Service Discharge Diagnosis: covid Referrals: Lj Hua MD [Primary Care Provider] - 1 Week Discharge Medications: Continued prednisone 10 mg tablet 30 mg PO DAILY sulfasalazine 500 mg tablet 2,000 mg PO BID lisinopril 20 mg tablet 20 mg PO BID allopurinol 100 mg tablet 100 mg PO BEDTIME potassium citrate 10 mEq (1,080 mg) tablet extended release 10 meq PO DAILY folic acid 1 mg tablet 1 mg PO DAILY Stelara 90 mg/mL syringe 90 mg subcut Q8W famotidine 40 mg Tablet 40 mg PO DAILY cholecalciferol (vitamin D3) 50 mcg (2,000 unit) Tablet 50 mcg PO DAILY Discharge Orders: Discharge Order (Routine); Ordered 10/11/23 Ordered By: Cy Perez Diet: Advance to usual diet Activity on Discharge: As tolerated Stand Alone Forms: Patient Portal Discharge page Care Plan Goals: recovery Health Concerns: covid Plan of Treatment: double prednisone for 3 more days Assessment: see above
--- NOTE | 2023-10-11 09:36 | W.MHC.F2F ---
Service Date Service Date: 10/11/23 Encounter Date of encounter: 10/11/23 Reasons for Services Signs and symptoms assessed: weakness Reason for half-way: medication management, medication treatment and teach disease management Reason for physical therapy: home safety and mobility and therapeutic exercises Homebound: Leaving the home is medically contraindicated at this time without the asist of a device and/or another person due th the listed conditions above and below. Reason homebound: unsteady gait / fall risk Certification: Based on the above findings, I certify that this patient is confined to the home and needs intermittent half-way care, physical therapy and/or speech therapy, or continues to need occupational therapy. The patient is under my care, and I have initiated the establishment of the plan of care. The patient will be followed by a physician who will periodically review the plan of care. Time Spent With Patient Time: Total time managing care of this patient today ____ minutes.
--- NOTE | 2023-10-11 10:37 | MHC.CM.PN ---
Pt is medically cleared for D/C home with new [facility]. Pts daughter will transport him home.
== END 2023-10-11 12:00 | disposition home health service (06) | DRG 871 ==
LOC: HO.ED 10-09 00:40 → HO.EDOVER 10-09 01:17 → HO.IMC 10-09 14:49
PROVIDERS: Admitting Provider Student in an Organized Health Care Education/Training Program; Emergency Provider Emergency Medicine; PCP Internal Medicine; Visit Provider Internal Medicine
DX: A41.89 Other specified sepsis (principal); J12.82 Pneumonia due to coronavirus disease 2019; U07.1 COVID-19; K50.90 Crohn's disease, unspecified, without complications; I10 Essential (primary) hypertension; Z85.46 Personal history of malignant neoplasm of prostate; Z79.52 Long term (current) use of systemic steroids; Z79.899 Other long term (current) drug therapy
CPT/HCPCS: 0241U; 36415; 71045; 74176; 80048; 80076; 81001; 83605; 83690; 83735; 85025; 85027; 87040; 87086; 87507; 87635; 97162; 99285; J0456; J0696; J1650; J1885; J2765

== ENCOUNTER → 2023-10-09 01:12 | Outpatient (BNV) | payer MEDICARE, MEDICAID, SELFPAY | PROVIDERS: Admitting Provider Student in an Organized Health Care Education/Training Program; Emergency Provider Emergency Medicine; Visit Provider Student in an Organized Health Care Education/Training Program | DX: U07.1 COVID-19 (principal) | CPT/HCPCS: 99222; 99232; 99239; 99499; G0180 ==

== ENCOUNTER 2024-03-22 09:16 | Day surgery (SDC) | payer MEDICARE, MEDICAID, SELFPAY ==
[2024-03-18 14:57] VITALS: BMI 32.6
[2024-03-22] MEDS: Tetracaine HCl/PF 0.5% Oph Sol 4 ML DROPS 1 DROP EYE-LEFT (10:07)
[2024-03-22] MEDS: Cyclopentolate 1 % Ophth Sol 2 ML DRPBTL 1 DROP EYE-LEFT ×3 (10:08→10:24)
[2024-03-22] MEDS: Tropicamide 1 % Ophth Sol 3 ML BTL 1 DROP EYE-LEFT ×3 (10:10→10:26)
[2024-03-22] MEDS: Ketorolac Tromethamine 0.5% Op 10 ML DROPS 1 DROP EYE-LEFT ×3 (10:12→10:28)
[2024-03-22] MEDS: Phenylephrine HCL 2.5% Oph SoL 2 ML BOTTLE 1 DROP EYE-LEFT ×3 (10:14→10:30)
[2024-03-22 10:18] VITALS: BP 172/107; PULSE 89; RESP 16; TEMP 36.4; O2SAT 98
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
[2024-03-22 10:33] VITALS: BMI 32.8
--- NOTE | 2024-03-22 11:22 | MHC.SHP ---
Pre-Procedural Eval Section A - 24 Hr Update-Section A only Date of Service: 03/22/24 The patient is an INPATIENT: No Changes since office visit: No Cold of Flu in the past 2 weeks, No New Medical Problems, No Changes in Medication and No Patient answered all questions The patient has been examined within 24 hours of the surgical procedure. The History & Physical has been completed within 30 days and I have reviewed it.: Yes Section B - Complete if H&P > 30 days Chief Complaint: Age-related nuclear cataract, left eye Allergies: Allergies Allergy/AdvReac Type Severity Reaction Status Date / Time Penicillins Allergy Unknown Verified 03/22/24 10:37 sesame seed Allergy Abdominal Verified 03/22/24 10:37 Pain wheat Allergy Abdominal Verified 03/22/24 10:37 Pain Plan Diagnosis/Plan: Unchanged I have reviewed the history and physical and performed a pertinent physical examination on my patient. No changes have occurred unless specified. Time Spent With Patient Time: Total time managing care of this patient today ____ minutes.
--- NOTE | 2024-03-22 11:22 | HO.PNOPHT ---
Ophthalmology Procedure Procedure Date of Service: 03/22/24 Ophthalmology Viscoelastic: Healon Duet Dual Pack Pro Ophthalmology Lenses: IOL Acrysof MP - MA60AC (21.5) Procedure Notes: PREOPERATIVE DIAGNOSIS: Decreased visual acuity left eye secondary to cataract POSTOPERATIVE DIAGNOSIS: Same PROCEDURE: Left cataract extraction with intraocular lens insertion SURGEON: Ricardo Sommers M.D. ANESTHESIA: Topical/MAC ESTIMATED BLOOD LOSS: None COMPLICATIONS: None After obtaining informed consent, the patient was brought to the operation room suite and placed in the supine position. After adequate sedation per anesthesia, topical drops of Tetracaine were given to the left eye. The eye was then prepped and draped in the usual sterile fashion. The operating room microscope was then positioned over the operative eye and a lid speculum placed. A paracentesis was created. Viscoelastic was then instilled into the anterior chamber. A three plane incision was then created temporally, utilizing a 2.85 mm keratome. Capsulotomy forceps were then utilized to create a circular tear capsulotomy. Hydrodissection and hydrodelineation were carried out until adequate mobilization of the nucleus occurred. Phacoemulsification was then utilized to remove the dense central nucleus followed by removal of the cortical material utilizing the automated aspiration irrigation unit. Viscoat elastic was instilled into the posterior capsular bag followed by placement of a posterior chamber intraocular lens without difficulty. The residual Viscoat elastic was then removed utilizing the automated IA machine. The wound was check and found to be watertight. The patient tolerated the procedure well and the lid speculum was removed. Intracameral injection of Vigamox 0.1 mL followed by a subtenon injection of Kenalog-40 0.2 mL were administered. The patient will be seen in the a.m.
[2024-03-22 11:51] VITALS: BP 149/93; PULSE 86; RESP 16; TEMP 36.4; O2SAT 95
== END 2024-03-22 12:00 | disposition home or self-care (01) ==
PROVIDERS: PCP Internal Medicine; Visit Provider Ophthalmology
PROC: (CPT 66985; principal; 2024-03-22 11:20)
DX: H25.12 Age-related nuclear cataract, left eye (principal); H52.4 Presbyopia; H40.032 Anatomical narrow angle, left eye; H18.413 Arcus senilis, bilateral; H04.123 Dry eye syndrome of bilateral lacrimal glands; R60.0 Localized edema; K50.90 Crohn's disease, unspecified, without complications; M45.9 Ankylosing spondylitis of unspecified sites in spine; Z85.46 Personal history of malignant neoplasm of prostate; Z79.899 Other long term (current) drug therapy; Z88.0 Allergy status to penicillin
CPT/HCPCS: 66984; J2250; J3010; J3301; V2630

== ENCOUNTER 2024-04-05 10:24 | Day surgery (SDC) | payer MEDICARE, MEDICAID, SELFPAY ==
[2024-03-18 15:01] VITALS: BMI 32.6
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
[2024-04-05 12:06] VITALS: BP 142/101; PULSE 76; RESP 16; TEMP 36.2; O2SAT 95
[2024-04-05] MEDS: Lactated Ringers 500 ML 50 ML IV (12:08)
--- NOTE | 2024-04-05 12:53 | MHC.SHP ---
Pre-Procedural Eval Section A - 24 Hr Update-Section A only Date of Service: 04/05/24 The patient is an INPATIENT: No Changes since office visit: No Cold of Flu in the past 2 weeks, No New Medical Problems, No Changes in Medication and No Patient answered all questions The patient has been examined within 24 hours of the surgical procedure. The History & Physical has been completed within 30 days and I have reviewed it.: Yes Section B - Complete if H&P > 30 days Chief Complaint: Age-related nuclear cataract, right eye Allergies: Allergies Allergy/AdvReac Type Severity Reaction Status Date / Time diphenhydramine Allergy Unknown Verified 04/05/24 11:47 [From Benadryl] Penicillins Allergy Unknown Verified 03/22/24 10:37 sesame seed Allergy Abdominal Verified 03/22/24 10:37 Pain wheat Allergy Abdominal Verified 03/22/24 10:37 Pain Plan Diagnosis/Plan: Unchanged I have reviewed the history and physical and performed a pertinent physical examination on my patient. No changes have occurred unless specified. Time Spent With Patient Time: Total time managing care of this patient today ____ minutes.
--- NOTE | 2024-04-05 12:54 | P.PCNO_ITS ---
Ophthalmology Procedure Procedure Date of Service: 04/05/24 Ophthalmology Viscoelastic: Healon Duet Dual Pack Pro Ophthalmology Lenses: IOL Acrysof MP - MA60AC (22.5) Procedure Notes: PREOPERATIVE DIAGNOSIS: Decreased visual acuity right eye secondary to cataract POSTOPERATIVE DIAGNOSIS: Same PROCEDURE: Right cataract extraction with intraocular lens insertion SURGEON: Ricardo Sommers M.D. ANESTHESIA: Topical/MAC ESTIMATED BLOOD LOSS: None COMPLICATIONS: None After obtaining informed consent, the patient was brought to the operating room suite and placed in the supine position. After adequate sedation per anesthesia, topical drops of Tetracaine were given to the right eye. The eye was then prepped and draped in the usual sterile fashion. The operating room microscope was then positioned over the operative eye and a lid speculum placed. A paracentesis was created. Viscoelastic was then instilled into the anterior chamber. A three plane incision was then created temporally, utilizing a 2.85 mm keratome. Capsulotomy forceps were then utilized to create a circular tear capsulotomy. Hydrodissection and hydrodelineation were carried out until adequate mobilization of the nucleus occurred. Phacoemulsification was then utilized to remove the dense central nu cleus followed by removal of the cortical material utilizing the automated aspiration irrigation unit. Viscoelastic was instilled into the posterior capsular bag followed by placement of a posterior chamber intraocular lens without difficulty. The residual Viscoelastic was then removed utilizing the automated IA machine. The wound was checked and found to be watertight. The patient tolerated the procedure well and the lid speculum was removed. Intracameral injection of Vigamox 0.1 mL followed by a subtenon injection of Kenalog-40 0.2 mL were administered. The patient will be seen in the a.m.
[2024-04-05 13:32] VITALS: BP 156/91; PULSE 72; RESP 16; TEMP 36.1; O2SAT 95
== END 2024-04-05 13:34 | disposition home or self-care (01) ==
PROVIDERS: PCP Internal Medicine; Visit Provider Ophthalmology
PROC: (CPT 66985; principal; 2024-04-05 12:10)
DX: H25.11 Age-related nuclear cataract, right eye (principal); H52.4 Presbyopia; H18.413 Arcus senilis, bilateral; H04.123 Dry eye syndrome of bilateral lacrimal glands; M45.2 Ankylosing spondylitis of cervical region; K50.10 Crohn's disease of large intestine without complications; Z79.899 Other long term (current) drug therapy; Z88.0 Allergy status to penicillin; Z98.890 Other specified postprocedural states
CPT/HCPCS: 66984; J2250; J3301; V2630

== ENCOUNTER 2024-05-22 13:02 | Emergency (ER) | payer MEDICARE, MEDICAID, SELFPAY ==
[2024-05-22] VITALS (7 sets, daily range): BP systolic 115–140; BP diastolic 60–88; PULSE 78–103; RESP 16–19; TEMP 36.6–37; O2SAT 95–96; BMI 32.3
--- NOTE | ~2024-05-22 | CT_ITS ---
EXAMINATION: CT ABDOMEN AND PELVIS WITH AND WITHOUT CONTRAST: CT GI BLEEDING STUDY CLINICAL INFORMATION: active gi bleeding. COMPARISON: 03/08/2024. TECHNIQUE: Multidetector volumetric imaging was performed from the lung bases to the pubic symphysis before and after the administration of: Intravenous contrast: 85 mL Omnipaque 350 No contrast reaction reported MIP coronal, sagittal and coronal reformatted images were obtained on the technologist workstation. This CT examination was performed using dose optimization techniques as appropriate, variously including the following: *Automated exposure control *Adjustment of mA and/or kV according to patient size (this includes techniques or standardized protocols for targeted exams where dose is matched to indication/reason for exam; i.e. extremities or head) *Use of iterative reconstruction technique Total exam dose-length product 1755 mGy-cm FINDINGS: STOMACH: No abnormal wall thickening or mass. No intraluminal contrast accumulation to suggest hemorrhage. SMALL BOWEL: No abnormal wall thickening or dilation. No intraluminal contrast accumulation to suggest hemorrhage. Multiple duodenal diverticula. COLON: No intraluminal contrast accumulation to suggest hemorrhage. Diverticulosis without evidence of diverticulitis. Mild generalized wall thickening in the rectum with intramural fat deposition, unchanged. Subtle foci of mucosal hyperenhancement are present in the rectum without persistence on delayed images. Normal appendix. LUNG BASES: No nodules, mass, or focal consolidation. Mild dependent atelectasis. PLEURA: No pleural effusion. LIVER, GALLBLADDER, AND BILIARY TREE: The liver is normal in size, shape, and attenuation. No focal hepatic lesion or biliary ductal dilatation is present. Choledocholithiasis. Contracted gallbladder. No evidence of acute cholecystitis. PANCREAS: Normal; no mass or surrounding fluid. SPLEEN: Normal size. No focal lesion. ADRENAL GLANDS: Normal; no mass. KIDNEYS AND URETERS: Multifocal bilateral nonobstructing renal calculi, unchanged. The kidneys are normal in size, shape, and attenuation. No hydronephrosis or hydroureter. Cyst at the left renal midpole is unchanged. ABDOMINAL WALL: No hernia seen. LYMPHOVASCULAR STRUCTURES: No lymphadenopathy. Atherosclerotic calcifications are present in the abdominal aorta and iliac arteries. No aneurysmal dilatation. BLADDER: No focal mass or wall thickening seen. No bladder calculi. PELVIC VISCERA: Unremarkable. OSSEOUS STRUCTURES: Ankylosis of the SI joints and pubic symphysis as well as much of the thoracic spine, most consistent with ankylosing spondylitis. Marked facet neuropathy in the lower lumbar spine. No acute osseous findings CT/CT gi bleed abd pel wo/w IVcon IMPRESSION: 1. No evidence of active gastrointestinal hemorrhage. Areas of mucosal arterial enhancement in the rectum may correspond to hemorrhoids or angiodysplasia. No clear sites of active bleeding. Generalized wall thickening in the rectum is unchanged and may be due to chronic proctitis. 2. Diverticulosis without evidence of diverticulitis. 3. Choledocholithiasis. 4. Ankylosis of the SI joints, pubic symphysis, and much of the thoracic spine, most consistent with ankylosing spondylitis.
--- NOTE | ~2024-05-22 | US_ITS ---
EXAMINATION: US VENOUS ULTRASOUND WITH DOPPLER LOWER EXTREMITY, LEFT CLINICAL INFORMATION: Pain and swelling of left leg COMPARISON: None available. TECHNIQUE: Ultrasound of the deep veins is performed from the hip to the calf with compression sonography and color and pulse Doppler assessment. Spectral analysis with color-flow imaging is performed. FINDINGS: The common femoral vein is compressible and exhibits a normal phasic waveform; this suggests that the iliac veins are widely patent above. Within the proximal thigh, the visualized profunda femoris vein is normal. The examined greater saphenous vein and saphenofemoral junction are normal. Superficial femoral vein is patent in the proximal, mid and distal thigh. Popliteal vein is normal to the level of the trifurcation. On compression rae scale and color Doppler images, the visualized posterior tibial and peroneal veins of the calf are patent. No evidence of Alonso's cyst. US/US venous duplex LE IMPRESSION: No evidence of deep vein thrombosis in the left lower extremity.
[2024-05-22] MEDS: 0.9 % Sodium Chloride 1,000 ML 999 ML IVCONT (13:35)
[2024-05-22 13:40] LABS: OBS Int Ctl Valid YES; OBS1 POSITIVE (NEGATIVE)
[2024-05-22 13:41] LABS: Basophils Absolute Auto 0.1 X10*3/uL (0.0-0.2); Basophils Percent Auto 0.4 % (0-2); Eosinophils Absolute Auto 0.3 X10*3/uL (0.0-0.4); Eosinophils Percent Auto 1.5 % (0-4); Hematocrit 35.7 % (42.0-52.0); Hemoglobin 11.6 g/dl (14.0-18.0); Imm Gran Abs Auto 0.31 X10*3/uL (0.00-0.03); Imm Gran Pct Auto 1.8 % (0.0-0.4); Lymphocytes Absolute Auto 1.3 X10*3/uL (1.2-4.9); Lymphocytes Percent Auto 7.8 % (20-40); MANUAL DIFF FLAG SCAN; Mean Corpuscular HGB Conc 32.5 g/dl (31.0-36.0); Mean Corpuscular Hemoglobin 32.1 pg (27.0-33.0); Mean Corpuscular Volume 98.9 fL (80.0-98.0); Mean Platelet Volume 9.6 fL (9.4-12.4); Monocytes Absolute Auto 1.6 X10*3/uL (0.1-1.2); Monocytes Percent Auto 9.3 % (2-11); Neutrophils Absolute Auto 13.6 x10*3/uL (2.0-8.3); Neutrophils Percent Auto 79.2 % (45-73); Platelet Count 262 X10*3/uL (160-400); Red Blood Count 3.61 X10*6/uL (4.60-5.80); Red Cell Distribution Width 15.7 % (11.0-16.0); SCAN SMEAR FLAG 1; White Blood Count 17.1 X10*3/uL (4.8-10.8)
[2024-05-22 13:48] LABS: Prothrombin Time 11.8 SEC (11.1-13.3)
[2024-05-22 13:51] LABS: Partial Thromboplastin Time 28.1 SEC (26.0-36.8)
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
[2024-05-22 14:06] LABS: SLIDE REVIEW VERIFIED
[2024-05-22 14:11] LABS: Alanine Aminotransferase 9 U/L (0-40); Albumin Level 3.4 g/dL (3.5-5.0); Alkaline Phosphatase 137 U/L (39-117); Anion Gap 13 (12-20); Aspartate Amino Transferase 11 U/L (5-37); Bilirubin Direct < 0.2 mg/dL (0.0-0.5); Bilirubin Total 0.2 mg/dL (0.0-1.0); Blood Urea Nitrogen 17 mg/dL (9-16); C Reactive Protein 3.54 mg/dL (< or = 0.50); Calcium 8.8 mg/dL (8.4-10.2); Carbon Dioxide 22 mmol/L (22-29); Chloride 113 mmol/L (96-108); Creatinine Clr Calc Pharmacy 85.6; Estimated Glomerular Filt Rate > 60; Glucose Random 139 mg/dL (60-115); Potassium 4.1 mmol/L (3.3-5.1); Sodium 144 mmol/L (135-145); Total Protein 6.1 g/dL (6.5-8.0)
[2024-05-22 14:17] LABS: Erythrocyte Sedimentation Rate 34 MM/HR (0-15)
[2024-05-22] MEDS: iohexoL 350 MG/ML 100 ML INFUS..BTL IV (14:49)
--- NOTE | 2024-05-22 14:55 | PC.NURSE ---
Pt presents to ED via EMS from home, reports 4 episodes of blood in stool since midnight, dark red blood, reports it was more than a cup full each time . Pt has hx of Crohns disease, GI bleeding w/ transfusions. Pt also reports no control over bowels, general weakness and malaise. Has pain in upper left leg for past couple of weeks. Alert and oriented, breathing even and unlabored, skin slightly pale and dry.
[2024-05-22 17:23] LABS: Appearance Urine Clear; Color Urine Dark Yellow; Glucose Urine UA Negative (Negative); Leukocyte Esterase Urine Negative (Negative); Nitrite Urine Negative (Negative); PH 5.5 (5.0-9.0); Specific Gravity - Urine >= 1.030 (1.005-1.025); Urine Blood Negative (Negative); Urine Ketones Negative (Negative); Urine Protein Negative (Neg-Trace)
[2024-05-22 18:25] LABS: Hematocrit 36.6 % (42.0-52.0); Hemoglobin 11.4 g/dl (14.0-18.0)
[2024-05-22] MEDS: predniSONE 10 MG TABLET PO (18:54)
== END 2024-05-22 19:15 | disposition home or self-care (01) ==
PROVIDERS: Physician Assistant; Emergency Provider Emergency Medicine; PCP Internal Medicine
DX: K92.2 Gastrointestinal hemorrhage, unspecified (principal); K50.911 Crohn's disease, unspecified, with rectal bleeding; M79.605 Pain in left leg; R60.0 Localized edema; I10 Essential (primary) hypertension; Z79.899 Other long term (current) drug therapy
CPT/HCPCS: 36415; 74178; 80048; 80076; 81003; 82272; 83735; 85014; 85018; 85025; 85610; 85652; 85730; 86140; 86850; 86900; 86901; 93971; 96360; 99284; 99285; Q9967

== ENCOUNTER 2025-05-24 15:26 | Outpatient (REF) | payer MEDICARE, MEDICAID, SELFPAY ==
[2025-05-24 16:02] LABS: Hematocrit 31.0 % (42.0-52.0); Hemoglobin 9.3 g/dl (14.0-18.0); Mean Corpuscular HGB Conc 30.0 g/dl (31.0-36.0); Mean Corpuscular Hemoglobin 27.9 pg (27.0-33.0); Mean Corpuscular Volume 93.1 fL (80.0-98.0); NRBC Abs Auto 0.000 X10*3/uL (0.0-0.012); NRBC Pct Auto 0.0 /100WBC (0.0-0.2); Platelet Count 270 X10*3/uL (160-400); Red Blood Count 3.33 X10*6/uL (4.60-5.80); White Blood Count 13.4 X10*3/uL (4.8-10.8)
[2025-05-24 16:29] LABS: Alanine Aminotransferase 10 U/L (0-40); Albumin Level 4.0 g/dL (3.5-5.0); Alkaline Phosphatase 54 U/L (39-117); Anion Gap 13 (12-20); Aspartate Amino Transferase 17 U/L (5-37); Blood Urea Nitrogen 21 mg/dL (9-16); Calcium 8.8 mg/dL (8.4-10.2); Carbon Dioxide 25 mmol/L (22-29); Chloride 110 mmol/L (96-108); Estimated Glomerular Filt Rate > 60; Magnesium 2.1 mg/dL (1.6-2.6); Potassium 4.5 mmol/L (3.3-5.1); Sodium 143 mmol/L (135-145); Total Protein 7.0 g/dL (6.5-8.0)
--- OUTSIDE RECORDS SUMMARY | 2025-05-24 16:44 | XMS_ITS | Encounter Summary ---
Author Organization [facility] Address [address] [facility] [address] [place] [address] Phone Care Team Providers Care Voucher Examiner Name Role Phone Lj Hua MD Primary Care Provider Lin Schuster MD Unavailable Lj Hua MD Unavailable [phone] James Fair MD Unavailable Marina Reid MD Unavailable [phone] Wilmer Cavazos MD, MS Unavailable [phone] Vicenta MahmodoSW Unavailable [email or web address] Aceves RN Unavailable Monica Bryson Unavailable matt Encounter Details Date Type Department Care Team (Late st Contact Info) Description 03/23/2020 Procedure Pass [facility], Ct Scan - [facility] [address] [place], [place] [id number] Social History Tobacco Use Types Packs/Day Years Used Date Smoking Tobacco: Never Smokeless Tobacco: Never Alcohol Use Standard Drinks/Week Comments No 0 (1 standard drink = 0.6 oz pur e alcohol) Sex and Gender Information Value Date Recorded Sex Assigned at Male 06/23/2019 5:39 AM EDT Legal Sex Male 9:48 PM EDT Gender Identity Male 06/23/2019 5:39 AM EDT Sexual Orientation Straight 06/23/2019 5: 39 AM EDT documented as of this encounter Plan of Treatment Upcoming Encounters Date Type Department Care Team (Late st Contact Info) Description 06/02/2025 3:30 PM EDT Nurse Only [address] [place] [address] Lj Hua MD [address] [place] [address], [address] [place] [address] 07/28/2025 4:00 PM EDT Office Visit [facility] Rheumatology [address] [place] [address] [place] [address] Coral Crews MD [address] [place] [address], [address] [place] [address] [email or web address] 09/20/2025 3:00 PM EST Office Visit [address] [place] [address] Lj Hua MD [address] [place] [address], [address] [place] [address] documented as of this encounter Visit Diagnoses Not on filedocumented in this encounter Additional Health Concerns Infection Onset Date Last Indicated Resolved Time CoV-Risk 10/06/2023 10/06/2023 10/06/2023 2:51 PM EST CoV-Exposed Comment:Positive COVID-19 10/06/2023 10/06/2023 10/06/2023 2:5 1 PM EST COVID-19 10/06/2023 10/06/2023 10/27/2023 1:21 AM EST CDiff-Risk 02/19/2024 04/14/2024 02/26/2024 1:21 AM EDT CDiff-Risk 04/14/2024 04/14/2024 04/14/2024 5:05 PM EDT CDiff-Risk 11/29/2024 01/19/2025 12/06/2024 1:22 AM EST CDiff-Risk 01/19/2025 01/19/2025 01/19/2025 11:0 8 PM EDT documented as of this encounter Care Teams Voucher Examiner Relationship Specialty Start Date End Date Lj Hua MD [address] [facility], [address] [place] [address] PCP - General Internal Medicine 12/29/17 Lin Schuster MD [address] [facility] [place] [address] [email or web address] Surgeon Urology 08/10/19 Lj Hua MD [address] [place] [address], [address] [place] [address] Insurance Assigned Provider 01/10/24 James Fair MD [address] [facility] [address] [place] [address] [email or web address] 11/13/20 Marina Reid MD [address] [place] [address] [address] [place] [address] [email or web address] Medical Oncology 11/21/20 Wilmer Cavazos MD, MS [address] [place] [address] [address] [place] [address] [email or web address] 11/28/20 Vicenta Mahmood, [address] [place] [address] [email or web address] Hole Rough Opener Oncology 01/04/21 Stephanie Purvis, RN [address] [place] [address] [email or web address] Brick Maker 02/24/23 Monica Bryson [address] [place] [id number] [email or web address] [facility] Community Label Operator 05/31/24 05/31/24 documented as of this encounter Additional Source Comments The information contained in this document represents components of the legal health record. It is not the complete legal health record.[facility]
--- OUTSIDE RECORDS SUMMARY | 2025-05-24 16:44 | XMS_ITS | Clinical Summary ---
Author Organization [facility] Address [address] [place] [address] Care Team Providers Care Stone Layer Name Role Phone Lj Hua MD Primary Care Provider [phone] Allergies Active Allergy Reactions Criticality Noted Date Comments Penicillins 01/21/2018 Medications Medication Sig Dispensed Refills Start Date End Date Status allopurinol (ZYLOPRIM) 100 MG tablet Take 100 mg by mouth daily. 0 Active lisinopril (PRINIVIL,ZESTRIL) tablet 20 mg Take 20 mg by mouth daily. 0 Active potassium citrate (UROCIT-K 10) 10 MEQ (1080 MG) SR tablet Take by mouth 3 (three) times a day with meals. 0 Active Cholecalciferol (VITAMIN D3) 2000 units TABS Take by mouth. 0 Active sulfaSALAzine (AZULFIDINE) 500 MG tablet Take 500 mg by mouth 2 (two) times a day. 0 Active famotidine (PEPCID) 20 MG tablet Take 20 mg by mouth. 0 Active folic acid (FOLVITE) tablet 1 mg Take 1 mg by mouth daily. 0 Active Adalimumab (HUMIRA) 40 MG/0.8ML injection Inject 40 mg under the skin. 0 Active Iron-Vitamin C 65-125 MG TABS Take 1 tablet by mouth 3 (three) times a day after meals. 0 Active predniSONE (DELTASONE) 5 mg tablet 0 Active Active Problems Problem Noted Date Diagnosed Date Neoplasm of uncertain behavior of prostate 01/21 Elevated PSA 01/21/2018 History of kidney stones 01/21/2018 Family History Medical History Relation Name Comments Arthritis Other Heart disease Other Relation Name Status Comments Other Social History Tobacco Use Types Packs/Day Years Used Date Smoking Tobacco: Never Smokeless Tobacco: Never Alcohol Use Standard Drinks/Week Comments No 0 (1 standard drink = 0.6 oz pur e alcohol) Sex and Gender Information Value Date Recorded Sex Assigned at Not on file Gender Identity Not on file Sexual Orientation Not on file Last Filed Vital Signs Vital Sign Reading Time Taken Comments Blood Pressure 162/80 01/21/2018 2:55 PM EDT Pulse - - Temperature - - Respiratory Rate - - Oxygen Saturation - - Inhaled Oxygen Concentration - - Weight 85.6 kg (188 lb 12.8 oz) 01/21/2018 2:55 PM EDT Height 162.6 cm (5' 4 ) 01/21/2018 2:55 PM EDT Body Mass Index 32.41 01/21/2018 2:55 PM EDT Plan of Treatment Health Maintenance Due Date Last Done Comments Hepatitis C Screening 1960 COVID-19 Vaccine (#1) 01/19/1961 Depression Screening 1972 Preventative Health Evaluation 1978 DTap / Tdap / Td (1 - Tdap) 1979 Colon Cancer Screening (Colonoscopy) 2005 Shingrix-Zoster Vaccine (1 of 2) 2010 Influenza Vaccine (#1) 2025 Pneumococcal Vaccine (1 of 1 - PCV) 2025 RSV Adult > 60+ Yrs or Pregn ant (1 - 1-dose 75+ series) 2035 Hepatitis B Vaccines Aged Out No long er eligible based on patient's age to complete this topic Pneumococcal Vaccine Aged Out No long er eligible based on patient's age to complete this topic RSV Ped < 20 months Aged Out No longe r eligible based on patient's age to complete this topic Care Teams Stone Layer Relationship Specialty Start Date End Date Lj Hua MD [address] [place] [address] PCP - General Internal Medicine 01/21/18
--- OUTSIDE RECORDS SUMMARY | 2025-05-24 16:44 | XMS_ITS | Clinical Summary ---
Author Organization [address] [facility] Address [address] [place] [address] Phone Care Team Providers Care Manager Er Name Role Phone Physician, Pcp Unknown Primary Care Provider Alisson vailable Allergies Active Allergy Reactions Criticality Noted Date Comments Diphenhydramine Hcl 11/04/2024 Penicillins 11/04/2024 Medications ammonium lactate (AmLactin) 12 % lotion Apply topically if needed for dry skin. 400 g 2 5 11/04/19 26 Active Encounters Date Type Department Care Team Description 04/05/2025 1:30 PM EDT Office Visit Orthopedic Surgery - [place] [address] [facility] [address] [place] [phone] Uriel Michaud DPM Bilateral foot pain (Primary Dx); PVD (peripheral vascular disease) (CMS/HCC V24); Lumbosacral radiculopathy; Arthritis of both feet; Dermatophytosis, nail from Last 3 Months Social History Tobacco Use Types Packs/Day Years Used Date Smoking Tobacco: Never Assessed Sex and Gender Information Value Date Recorded Sex Assigned at Not on file Legal Sex Male 4:59 PM EST Gender Identity Not on file Sexual Orientation Not on file Last Filed Vital Signs Vital Sign Reading Time Taken Comments Blood Pressure - - Pulse - - Temperature - - Respiratory Rate - - Oxygen Saturation - - Inhaled Oxygen Concentration - - Weight 86.6 kg (191 lb) 04/05/2025 1:42 PM EDT Height 162.6 cm (5' 4.02 ) 04/05/2025 1:42 PM ED T Body Mass Index 32.77 04/05/2025 1:42 PM EDT Plan of Treatment Upcoming Encounters Date Type Department Care Team ([facility] st Contact Info) Description 06/07/2025 1:30 PM EDT Office Visit Orthopedic Surgery - [place] [address] [facility] 250 [place] [phone] Uriel Michaud, DPDayanara 175 [facility] [address] [place] [address] Health Maintenance Due Date Last Done Comments Zoster Vaccines (1 of 2) 2010 RSV Immunization Adult Patients (1 - Risk 60-74 years 1-dose series) 2020 Pneumococcal Vaccine: 50+ Years (2 of 2 - PCV) 06/18/2022 06/18/2021 Colorectal Cancer Screening: Colonoscopy 09/04/2022 HIV Screening 09/04/2022 Hepatitis C Screening 09/04/2022 Medicare Annual Wellness Visit 09/04/2022 Social Influencers of Health Screening 09/04/2022 COVID-19 Vaccine ( season) 2024 09/11/2022, 03/20/2022, 10/03/2021, Additional history exists Depression Screening 10/06/2024 Influenza Vaccine (#1) 2025 Cholesterol Screening (Lipid Panel) 03/14/2030 03/14/2025, 06/19/2021 DTaP,Tdap,and Td Vaccines (2 - Td or Tdap) 12/27/2032 12/27/2022 HIB Vaccines Aged Out No longer eligi ble based on patient's age to complete this topic HPV Vaccines Aged Out No longer eligi ble based on patient's age to complete this topic Hepatitis A Vaccines Aged Out No long er eligible based on patient's age to complete this topic Hepatitis B Vaccines Aged Out No long er eligible based on patient's age to complete this topic IPV Vaccines Aged Out No longer eligi ble based on patient's age to complete this topic MMR Vaccines Aged Out No longer eligi ble based on patient's age to complete this topic Meningococcal ACWY Vaccine Aged Out N o longer eligible based on patient's age to complete this topic Meningococcal B Vaccine Aged Out No l onger eligible based on patient's age to complete this topic RSV Immunization Patients Under 20 months Aged Out No longer eligible based on patient's age to complete this topic Varicella Vaccines Aged Out No longer eligible based on patient's age to complete this topic Insurance * Guarantor: [employer] Account Type Relation to Patient Date of Phone Billing Address Personal/Family Self 1960 [address] [facility]] [address] [place] [address] MEDICAID - [place] MEDICARE Care Teams Manager Er Relationship Specialty Start Date End Date Physician, Pcp Unknown PCP - General 11/02/24
[2025-05-24 16:49] LABS: Ferritin 15 ng/mL (20-250)
[2025-05-24 16:54] LABS: Folate 17.1 ng/mL (> or = 4.0); Vitamin B12 486 pg/mL (200-900)
== END 2025-05-24 15:27 | disposition home or self-care (01) ==
LOC: HO.LAB 15:26
PROVIDERS: PCP Internal Medicine
DX: K50.812 Crohn's disease of both small and large intestine with intestinal obstruction (principal)
CPT/HCPCS: 36415; 80053; 82306; 82607; 82728; 82746; 83735; 84590; 84630; 85027; 86140

== ENCOUNTER 2025-09-03 14:39 | Emergency (ER) | payer MEDICARE, MEDICAID, SELFPAY ==
--- OUTSIDE RECORDS SUMMARY | 2025-08-30 14:30 | XMS_ITS | Encounter Summary ---
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 Encounter Details Date Type Department Care Team (Late st Contact Info) Description 08/30/2025 2:30 PM EST Office Visit Orthopedic Surgery - [place] [address] [phone] Uriel Michaud DPM [address] [address] PVD (peripheral vascular disease) (CMS/[facility] V24) (Primary Dx); Lumbosacral radiculopathy; Arthritis of both feet; Bilateral foot pain; Dermatophytosis, nail Social History Tobacco Use Types Packs/Day Years Used Date Smoking Tobacco: Never Assessed Sex and Gender Information Value Date Recorded Sex Assigned at Not on file Legal Sex Male 4:59 PM EST Gender Identity Not on file Sexual Orientation Not on file documented as of this encounter Progress Notes * Uriel Michaud DPM - 08/30/2025 2:30 PM EST Referring MD: sarina Last PCP visit: 07/05/2025 IDENTIFIER: Jarrod is a 65 y.o. year old male who presents for consultation. CC: Pain in feet HPI: 65-year-old male returns office bilateral foot pain. Patient notes he is at some decreased ability to ambulate due to contractures of the toes. Patient notes he continues to have some tingling numbness in the feet from time to time. Patient notes his nails are thickened and causing pain close toed shoes ROS: GENERAL: Pt denies nausea, fever, vomiting, chills, or shortness of breath. Pt in NAD. CARDIOLOGY: pt denies chest pain, palpitations LUNGS: pt denies shortness of breath MUSCULOSKELETAL: See HPI, otherwise no joint pain or swelling, back pain, or muscle pain. SKIN: see HPI, otherwise no lesions, rash or itching NEURO: No persistent headache, weakness or numbness The remainder of the review of systems is noncontributory PAST MEDICAL HISTORY: There is no problem list on file for this patient. SOCIAL HISTORY: Social History Tobacco Use Smoking status: Not on file Smokeless tobacco: Not on file Substance Use Topics Alcohol use: Not on file ACTIVE MEDICATIONS: No outpatient medications have been marked as taking for the 08/30/25 encounter (Office Visit) David Michaud DPM. ALLERGIES: @ALL@ PHYSICAL EXAM: There were no vitals taken for this visit. PODIATRIC EXAMINATION: GENERAL: Patient appears well nourished, with NAD. VASCULAR: Dorsalis pedis pulses are 1/4 bilaterally and Posterior tibial pulses are 0/4 bilaterally. Capillary filling time within normal limits the digits. No pallor on elevation or rubor on dependency. Positive hair growth. Many varicosities. +1 pitting edema bilaterally. Denies rest pain or claudication pain. NEUROLOGICAL: Sharp/dull sensation diminished protective sensation diminished on Thurman. Multiple peripheral neuropathies bilaterally. ORTHOPEDIC: Good muscle strength 5/5 of all flexors and extensors. Dorsi flexion of ankle ,10 degrees, plantar flexion WNL. No muscle atrophy. Continued arthritic changes of midfoot. Contracture to digits 2 through 5. Pain on palpation of the lateral aspect of the plantar aspect of the left foot DERMATOLOGICAL:.Callus formations to the submetatarsal area and along the lateral aspect of the left foot. Multiple areas of xerosis. Nails are elongated dystrophic discolored x 10 with subungual debris BIOMECHANICS: STJ ROM wnl, MTJ ROM wnl, 1st MPJ ROM wnl. IMPRESSION: 1. PVD (peripheral vascular disease) (CMS/HCC V24) 2. Lumbosacral radiculopathy 3. Arthritis of both feet 4. Bilateral foot pain 5. Dermatophytosis, nail PLAN: Pt was seen and examined, history reviewed. Patient understands that he has continued flattening of the midfoot and should be using a supportive insole in his shoe daily in order to limit breakdown the midtarsal joint Patient has sciatic pain which is causing radiating tenderness down the legs bilaterally. Patient encouraged to continue doing his stretching exercises daily in order to limit sciatic pain Patient encouraged to continue with the use of ammonium lactate 12% to the feet bilaterally Patient once again educated on the importance of ambulating daily in order to increasing blood flowto the feet. Patient states he has decreased pulses bilateral feet Uriel Michaud DPM documented in this encounter Plan of Treatment Upcoming Encounters Date Type Department Care Team (Late st Contact Info) Description 11/01/2025 2:45 PM EST Office Visit Orthopedic Surgery - [place] [address] [phone] Uriel Michaud DPM [address] [address] documented as of this encounter Visit Diagnoses Diagnosis PVD (peripheral vascular disease) (CMS/[facility] V24)- Primary Unspecified peripheral vascular disease Lumbosacral radiculopathy Thoracic or lumbosacral neuritis or radiculitis, unspecified Arthritis of both feet Bilateral foot pain Dermatophytosis, nail Dermatophytosis of nail documented in this encounter Care Teams Skin Care Therapist Relationship Specialty Start Date End Date Physician, Pcp Unknown PCP - General 11/02/24 documented as of this encounter
--- NOTE | ~2025-09-03 | XR_ITS ---
CLINICAL HISTORY: cough covid+ 2 view chest x-ray. Comparison: 10/08/2023 Findings: No consolidation or effusion. Cardiac and mediastinal contours are stable. Bones unremarkable. Impression: 1. No acute pulmonary disease. This document has been electronically signed by: Daniel Yeung MD on 09/03/2025 16:28:41
[2025-09-03 14:46] VITALS: BP 128/72; PULSE 103; O2SAT 98
[2025-09-03 15:04] VITALS: BP 132/75; PULSE 102; RESP 20; TEMP 36.6; O2SAT 95; BMI 32.6
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
[2025-09-03 15:37] LABS: MANUAL DIFF FLAG NO
[2025-09-03 15:39] LABS: Hematocrit 35.0 % (42.0-52.0); Hemoglobin 10.8 g/dl (14.0-18.0); Imm Gran Abs Auto 0.14 X10*3/uL (0.00-0.03); Imm Gran Pct Auto 1.0 % (0.0-0.4); Lymphocytes Absolute Auto 0.6 X10*3/uL (1.2-4.9); Mean Corpuscular HGB Conc 30.9 g/dl (31.0-36.0); Mean Corpuscular Hemoglobin 26.9 pg (27.0-33.0); Mean Corpuscular Volume 87.1 fL (80.0-98.0); NRBC Abs Auto 0.000 X10*3/uL (0.0-0.012); NRBC Pct Auto 0.0 /100WBC (0.0-0.2); Platelet Count 241 X10*3/uL (160-400); Red Blood Count 4.02 X10*6/uL (4.60-5.80); White Blood Count 14.5 X10*3/uL (4.8-10.8)
[2025-09-03 15:46] LABS: COVID-19 Test Positive (Negative); IDNOW Serial# 58CA691E
[2025-09-03 15:52] LABS: Alanine Aminotransferase 15 U/L (0-40); Albumin Level 4.2 g/dL (3.5-5.0); Alkaline Phosphatase 62 U/L (39-117); Anion Gap 17 (12-20); Aspartate Amino Transferase 25 U/L (5-37); Blood Urea Nitrogen 19 mg/dL (9-16); Calcium 8.9 mg/dL (8.4-10.2); Carbon Dioxide 20 mmol/L (22-29); Chloride 105 mmol/L (96-108); Creatinine Clr Calc Pharmacy 75.9; Estimated Glomerular Filt Rate > 60; Magnesium 1.8 mg/dL (1.6-2.6); Potassium 4.3 mmol/L (3.3-5.1); Sodium 138 mmol/L (135-145); Total Protein 7.5 g/dL (6.5-8.0)
--- NOTE | 2025-09-03 18:21 | ECG_ITS ---
Test Reason : sob Blood Pressure : */* mmHG Vent. Rate : 155 BPM Atrial Rate : 97 BPM P-R Int : 136 ms QRS Dur : 84 ms QT Int : 344 ms P-R-T Axes : * -46 6 degrees QTcB Int : 552 ms Normal sinus rhythm Left anterior fascicular block Incomplete right bundle branch block Abnormal ECG No previous ECGs available Referred By: Corrie Villeda Electronically Signed By: SURYA JOHNSON
--- OUTSIDE RECORDS SUMMARY | 2025-09-03 18:42 | XMS_ITS | Encounter Summary ---
Author Organization [facility] Address [address] [place] [phone] Phone Care Team Providers Care Tap Out Operator Name Role Phone Lj Hua MD Primary Care Provider Lin Schuster MD Unavailable Lj Hua MD Unavailable [phone] James Fair MD Unavailable Marina Reid MD Unavailable [phone] Wilmer Cavazos MD Unavailable [phone] Vicenta MahmoodSW Unavailable [email or web address] Aceves RN Unavailable [email or web address] Monica Bryson Unavailable matt Brynn Luciano RN Unavailable Encounter Details Date Type Department Care Team (Latest Contact Info) Description 04/14/2024 Transcribe Orders Virtual Department [address] [place] [address] Sergio Moreau, EMILY [address] [place], [place] [id number] Crohn's disease of colon without complication (Primary Dx) Social History Tobacco Use Types Packs/Day Years Used Date Smoking Tobacco: Never Smokeless Tobacco: Never Alcohol Use Standard Drinks/Week Comments Not Currently 0 (1 standard drink = 0.6 oz pur e alcohol) none in 30 yrs Education Answer Date Recorded Are you interested in more education? Not on gab e 01/30/2023 Are you concerned about learning? Not on file 01/30/2023 No 01/30/2023 No 01/30/2023 Digital Access Answer Date Recorded No 02/26/2023 No 02/26/2023 Reliable internet access at home? Not on file 02/26/2023 Device with a working camera? Not on file Sex and Gender Information Value Date Recorded Sex Assigned at Male 06/23/2019 5:39 AM EDT Legal Sex Male 9:48 PM EDT Gender Identity Male 06/23/2019 5:39 AM EDT Sexual Orientation Straight 06/23/2019 5: 39 AM EDT documented as of this encounter Plan of Treatment Upcoming Encounters Date Type Department Care Team (Latest Contact Info) Description 09/06/2025 3:00 PM EST Nurse Only [address] [id number] Lj Hua MD [address] [facility], [address] [place] [address] 09/08/2025 2:45 PM EST Procedure visit [facility] [address] [place] [address] Sergio Moreau, QUAN [address] [address] [email or web address] 09/09/2025 Procedure Pass [facility] [address] [address] 09/09/2025 9:00 AM EST Hospital Encounter [facility] [address] [address] Luz Elena Infante MD [address] [place] [id number] [email or web address] 09/09/2025 9:00 AM EST Anesthesia Event [facility] [address] [address] Christi Saxena [email or web address] 09/09/2025 9:00 AM EST - 09/09/2025 10:00 AM EST Surgery [facility] [address] [address] Luz Elena Infante MD [address] [place] [phone] [email or web address] 09/20/2025 3:00 PM EST Office Visit [address] [place] [address] Lj Hua MD [address] [place] [address], [address] [place] [address] [email or web address] 11/04/2025 4:00 PM EST Office Visit [facility] Rheumatology [address] [place] [address] [place] [address] Coral Crews MD [address] [place] [address], [address] [place] [address] [email or web address] Scheduled Procedures Name Priority Associated Diagnoses Date/Ti in COLONOSCOPY 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 with other complication 09/09/2025 9:00 AM EST documented as of this encounter Results * BD DXA AXIAL (SPINE) WITH HIP (04/13/2025 3:02 PM EDT) Anatomical Region Laterality Modality Bone Density Bone Density 04/13/2025 2:59 PM EDT Impressions 04/14/2025 1:44 PM EDT Interpretation: Osteoporosis. Narrative 04/14/2025 1:44 PM EDT Referred By: SERGIO MOREAU Scanner: [employer] Horizon A with serial# of [id number] located at [facility] Bone Density Scan (DXA) 04/13/25 Details of prior DXA scans are available by clicking View Full Report BMD T- Z- Skeletal Site gm/cm2 score score BMD Change Since Prior Scan ------ ----- ----- PA Spine (L1 L3 L4) 1.146 0.50 1.30 -0.043 (-3.6%)* since 06/23/2023 Total Hip (Left) 0.757 -1.80 -1.30 -0.004 (stable) since 06/23/2023 Femoral Neck (Left) 0.593 -2.50 -1.50 0.012 (stable) since 06/23/2023 ------ ----- ----- * Denotes significant change when >= 0.022 g/cm2 for the spine, 0.027 g/cm2 for the total hip, 0.029 g/cm2 for the femoral neck. Interpretation: Osteoporosis. Technical Quality: Imaging of all sites was of adequate quality. FRAX: A FRAX(r) score is not provided because the patient has osteoporosis, which is generally an indication for treatment. Reviewed By: Lin Mc MD on 04/14/2025 13:44:56 Additional Information: -World Health Organization criteria classify adults based on lowest T-score at PA spine, hip or forearm: Normal (T-score >= -1.0), Osteopenia (T-score between -1 and -2.5), or Osteoporosis (T-score <= -2.5). At [facility], T-scores are compared to peak bone density of a young white gender matched reference population. - For premenopausal women and men under the age of 50, Z-scores (comparison to age, gender, and ethnicity matched reference population) are used: Above expected range for age (Z-score >= 2.0), Within expected range of age (Z-score 1.9 to -1.9), or Below expected range for age (Z-score <= -2.0). - The Bone Health and Osteoporosis Foundation recommends that treatment be considered in men aged more than 50 years and in postmenopausal women with ANY of the following: Prior hip or vertebral fractures; T-score of <= -2.5 at the PA spine or hip; or 10 year fracture probability by FRAX of >= 3% for the hip or >= 20% for major osteoporotic fracture. - The FRAX algorithm (https://www.jessie.ac.uk/FRAX/tool.aspx) is designed to predict 10-year fracture risk in treatment-naive adults between the ages of 40 and 90. It is not intended to be used in those receiving pharmacologic osteoporosis treatment. - The TBS is derived from the texture of the DXA spine image and has been shown to be related to bone microarchitecture and fracture risk. This data provides information independent of BMD value. It adds to fracture risk assessment with a FRAX adjusted for TBS score. If your patient had a TBS and qualified for a FRAX score, the reported FRAX score has been adjusted for TBS. TBS Score Interpretation 1.350 and greater Normal bone microarchitecture 1.200 to 1.350 Partially degraded bone microarchitecture 1.200 and less Degraded bone microarchitecture - Including race/ethnicity in the generation of T- or Z-scores or in the FRAX calculation is complicated, and currently undergoing active review to ensure that we can give patients the best information on their risk of fracture. - Some prior studies may not be compatible with our comparison software. - Click on View Full Report to see subsequent pages with images and prior bone density results. Procedure Note Lin Mc MD - 04/14/2025 Referred By: SREGIO MOREAU Scanner: [employer] Horizon A with serial# of [id number] located at [facility] Bone Density Scan (DXA) 04/13/25 Details of prior DXA scans are available by clicking View Full Report BMD T- Z- Skeletal Site gm/cm2 score score BMD Change Since Prior Scan ------ ----- PA Spine (L1 L3 L4) 1.146 0.50 1.30 -0.043 (-3.6%)* since06/23/2023 Total Hip (Left) 0.757 -1.80 -1.30 -0.004 (stable) since06/23/2023 Femoral Neck (Left) 0.593 -2.50 -1.50 0.012 (stable) since06/23/2023 ------ ----- * Denotes significant change when >= 0.022 g/cm2 for the spine, 0.027g/cm2 for the total hip, 0.029 g/cm2 for the femoral neck. Interpretation: Osteoporosis. Technical Quality: Imaging of all sites was of adequate quality. FRAX: A FRAX(r) score is not provided because the patient hasosteoporosis, which is generally an indication for treatment. Reviewed By: Lin Mc MD on 04/14/2025 13:44:56 Additional Information: -World Health Organization criteria classify adults based on lowestT-score at PA spine, hip or forearm: Normal (T-score >= -1.0), Osteopenia (T-score between -1 and -2.5), or Osteoporosis (T-score <= -2.5). At [facility], T-scores are compared to peak bone density of a young white gender matched reference population. - For premenopausal women and men under the age of 50, Z-scores(comparison to age, gender, and ethnicity matched reference population) are used:Above expected range for age (Z-score >= 2.0), Within expected range of age (Z-score 1.9 to -1.9), or Below expected range for age (Z-score <= -2.0). - The Bone Health and Osteoporosis Foundation recommends that treatment be considered in men aged more than 50 years and in postmenopausal women with ANY of the following: Prior hip or vertebral fractures; T-score of <= -2.5 at the PA spine or hip; or 10 year fracture probability by FRAX of >= 3%for the hip or >= 20% for major osteoporotic fracture. - The FRAX algorithm (https://www.jessie.ac.uk/FRAX/tool.aspx) is designed to predict 10-year fracture risk in treatment-naive adultsbetween the ages of 40 and 90. It is not intended to be used in those receiving pharmacologic osteoporosis treatment. - The TBS is derived from the texture of the DXA spine image and has been shown to be related to bone microarchitecture and fracture risk. This data provides information independent of BMD value. It adds to fracture risk assessment with a FRAX adjusted for TBS score. If your patient had a TBSand qualified for a FRAX score, the reported FRAX score has been adjusted for TBS. TBS Score Interpretation 1.350 and greater Normal bone microarchitecture 1.200 to 1.350 Partially degraded bone microarchitecture 1.200 and less Degraded bone microarchitecture - Including race/ethnicity in the generation of T- or Z-scores or in the FRAX calculation is complicated, and currently undergoing active review to ensure that we can give patients the best information on their risk of fracture. - Some prior studies may not be compatible with our comparison software. - Click on View Full Report to see subsequent pages with images andprior bone density results. IMPRESSION: Interpretation: Osteoporosis. Sergio Justina Willemain ASSEMBLY LINE WORKER IMG BD BONE DENSITY DEXA Final Result documented in this encounter Visit Diagnoses Diagnosis Crohn's disease of colon without complication- Primary Crohn's disease of colon without complication 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 with other complication documented in this encounter Additional Health Concerns Infection Onset Date Last Indicated Resolved Time CDiff-Risk 04/14/2024 04/14/2024 04/14/2024 5:05 PM EDT CDiff-Risk 11/29/2024 01/19/2025 12/06/2024 1:22 AM EST CDiff-Risk 01/19/2025 01/19/2025 01/19/2025 11:0 8 PM EDT CDiff-Risk 08/17/2025 08/20/2025 08/20/2025 2:05 PM EST Assessment Noted Time PHQ-2 Depression Total Score: 2 03/28/20 23 1:26 PM EDT documented as of this encounter Care Teams Tap Out Operator Relationship Specialty Start Date End Date Lj Hua MD [address] [place] [address], [address] [place] [address] [email or web address] PCP - General Internal Medicine 12/29/17 Lin Schuster MD [address] [place] [address], [address] [place] [address] Surgeon Urology 08/10/19 Lj Hua MD [address] [place] [address], [address] [place] [address] [email or web address] Insurance Assigned Provider 01/10/24 James Fair MD [address] [place] [address] [email or web address] Internal Medicine 11/13/20 Marina Reid MD [address] [facility] [address] [place] [address] [email or web address] 11/21/20 Wilmer Cavazos MD [address] [place] [address] [address] [place], [place] [email or web address] U [email or web address] 11/28/20 Vicenta Mahmood, [address] [place], [place] [email or web address] 01/04/21 Stephanie Purvis, SOWMYA [address] [place] [address] [place], [place] [email or web address] [email or web address] PHCM Hub Cutter Apprentice 02/24/23 06/08/25 Monica Bryson [address] [place] [phone] [email or web address] PHCM Community Box Toe Cutter 05/31/24 05/31/24 Brynn Luciano, RN [address] [place] [id number] PHCM Hub Cutter ApprenticeForming Machine Operator 06/09/25 06/29/25 documented as of this encounter Additional Source Comments The information contained in this document represents components of the legal health record. It is not the complete legal health record.[facility]
--- OUTSIDE RECORDS SUMMARY | 2025-09-03 18:42 | XMS_ITS | Encounter Summary ---
Author Organization [facility] Address [address] [facility] [address] [place] [address] Phone Care Team Providers Care Crate Repairer Name Role Phone Lj Hua MD Primary Care Provider Lin Schuster MD Unavailable Lj Hua MD Unavailable [phone] James Fair MD Unavailable Marina Reid MD Unavailable [phone] Wilmer Cavazos MD Unavailable [phone] Vicenta MahmoodSW Unavailable [email or web address] Stephanie Aceves RN Unavailable [email or web address] Monica Bryson Unavailable matt Brynn Luciano RN Unavailable Encounter Details Date Type Department Care Team (Latest Contact Info) Description 07/22/2019 Transcribe Orders [facility] Phleb Nu [address] [place] [address] [id number] Rosa Cali CNP 10 [place] [address] [email or web address] 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 with complication (Primary Dx) Social History Tobacco Use [...] Description 09/06/2025 3:00 PM EST Nurse Only [address] [address] Lj Hua MD 22 [facility], [address] [place] [address] [email or web address] 09/08/2025 2:45 PM EST Procedure visit [facility]ology [facility] 10 [place] [address] Patricia Roy, FARM MANAGEMENT AGENT [address] [address] [email or web address] 09/09/2025 Procedure Pass [facility] CRP ENDO DEPT [address] [address] 09/09/2025 9:00 AM EST Hospital Encounter [facility] CRP ENDO DEPT [address] [address] Luz Elena Infante MD [address] [place] [address] [email or web address] 09/09/2025 9:00 AM EST Anesthesia Event [facility] CRP ENDO DEPT [address] [address] Christi Saxena RN [email or web address] 09/09/2025 9:00 AM EST - 09/09/2025 10:00 AM EST Surgery [facility] CRP ENDO DEPT [address] 9th [place] [address] Luz Elena Infante MD [address] [place] [address] [email or web address] COLONOSCOPY 09/20/2025 3:00 PM EST Office Visit [address] [place] [address] Lj Hua MD [address] [place] [address], [address] [place] [address] [email or web address] 11/04/2025 4:00 PM EST Office Visit [facility] Rheumatology [address] [place] [address] Coral Crews MD [address] [place] [address], [address] [place] [address] [email or web address] Scheduled Procedures Name Priority Associated Diagnoses Date/Ti ky COLONOSCOPY 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 with other complication 09/09/2025 9:00 AM EST documented as of this encounter Results * (ABNORMAL) Calprotectin, stool (12/21/2019 11:00 AM EDT) Pathologist [facility] Calprotectin, stool 542.4(H) <50.0 mcg/g [facility] Calprotectin Interp Positive (A) Negative [facility] Stool (Stool) 12/21/2019 11: 00 AM EDT 12/21/2019 12:31 PM EDT us Rosa Cali CNP LAB BODY FLUIDS AND STOOL ORDERABLES Final Result [facility] [address] [place] [address] * (ABNORMAL) C-Reactive Protein (07/22/2019 2:48 PM EDT) C REACTIVE PROTEIN 36.3(H) 0.0 - 4.0 mg/L [facility] Blood 07/22/2019 2:48 PM EDT 07/22/2019 2:53 PM EDT us Rosa Cali [facility] LAB BLOOD BKR ORDERABLES F inal Result [address] [address] * (ABNORMAL) Comprehensive metabolic panel (07/22/2019 2:48 PM EDT) Pathologist [facility] SODIUM 140 133 - 146 mmol/L [facility] POTASSIUM 4.3 3.3 - 5.1 mmol/L [facility] CHLORIDE 103 96 - 108 mmol/L [facility] CO2 25 21 - 35 mmol/L [facility] BUN 13 6 - 19 mg/dL [facility] CREATININE 0.60 0.5 - 1.5 mg/dL [facility] GLUCOSE 115(H) 70 - 99 mg/dL [facility] ALBUMIN 4.0 3.9 - 4.8 g/dL [facility] TOTAL PROTEIN 7.8 6.5 - 8.0 g/dL [facility] CALCIUM 9.3 8.4 - 10.3 mg/dL [facility] ALKALINE PHOSPHATASE 63 39 - 117 U/L [facility] TOTAL BILIRUBIN 0.2 0.0 - 1.2 mg/dL [facility] AST 17 0 - 37 U/L [facility] ALT 10 0 - 40 U/L [facility] GLOBULIN 3.8 1 - 4.8 g/dL [facility] EGFR 110 >59 mL/min/1.7 3m2 [facility] Comment:If patient is black, multiply result by 1.159. Estimated glomerular filtration rate calculated using the CKD-EPI equation. ANION GAP 16 10 - 20 mmol/L [facility] Blood 07/22/2019 2:48 PM EDT 07/22/2019 2:53 PM EDT Rosa Cali [facility] LAB BLOOD BKR ORDERABLES F inal Result [facility] [address] [place], [place] [id number] * (ABNORMAL) CBC and differential (07/22/2019 2:48 PM EDT) WBC 11.77(H) 3.40 - 11.20 K/uL [facility] RBC 4.15(L) 4.50 - 5.50 M/uL [facility] HGB 11.7(L) 13.0 - 17.0 g/dL [facility] HCT 37.3(L) 40.0 - 51.0 % [facility] PLT 326 130 - 400 K/uL [facility] MCV 89.9 79.0 - 98.0 fL [facility] MCH 28.2 27.0 - 34.8 pg [facility] MCHC 31.4(L) 31.5 - 36.0 g/dL [facility] RDW 17.1(H) 10.8 - 14.6 % [facility] MPV 9.3(L) 9.4 - 12.4 fl [facility] NRBC 0.00 0.00 /100 WBCs [facility] ABSOLUTE NRBC 0.00 0.00 K/uL [facility] DIFF METHOD Auto [facility] NEUTS 80.0(H) 45.30 - 77.70 % [facility] LYMPHS 7.8(L) 12.30 - 39.70 % [facility] MONOS 8.8 4.10 - 12.80 % [facility] EOS 2.1 0 - 7.2 % [facility] BASOS 0.8 0 - 2.80 % [facility] Granulocytes, immature (%) 0.5 0.0 - 0.9 % [facility] ABSOLUTE NEUTS 9.41(H) 1.40 - 7.70 K/uL [facility] ABSOLUTE LYMPHS 0.92 0.60 - 3.20 K/uL [facility] ABSOLUTE MONOS 1.04(H) 0.11 - 0.59 K/uL [facility] ABSOLUTE EOS 0.25 0.01 - 0.50 K/uL [facility] ABSOLUTE BASOS 0.09(H) 0.00 - 0.08 K/uL [facility] Granulocytes, immature 0.06(H) 0.00 - 0.05 K/uL [facility] Blood 07/22/2019 2:48 PM EDT 07/22/2019 2:53 PM EDT us Rosa Cali [facility] LAB BLOOD BKR ORDERABLES F inal Result [facility] [address] [place] [address] documented in this encounter Visit Diagnoses Diagnosis 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 with complication- Primary 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 with other complication documented in this encounter Additional Health Concerns Infection Onset Date Last Indicated Resolved Time CoV-Risk Comment:Referred for COVID-19 testing 01/06/2020 01/06/2020 01/20/2020 1:24 AM E DT CoV-Risk 10/06/2023 10/06/2023 10/06/2023 2:51 PM EST CoV-Exposed Comment:Positive COVID-19 10/06/2023 10/06/2023 10/06/2023 2:5 1 PM EST COVID-19 10/06/2023 10/06/2023 10/27/2023 1:21 AM EST CDiff-Risk 02/19/2024 04/14/2024 02/26/2024 1:21 AM EDT CDiff-Risk 04/14/2024 04/14/2024 04/14/2024 5:05 PM EDT CDiff-Risk 11/29/2024 01/19/2025 12/06/2024 1:22 AM EST CDiff-Risk 01/19/2025 01/19/2025 01/19/2025 11:0 8 PM EDT CDiff-Risk 08/17/2025 08/20/2025 08/20/2025 2:05 PM EST documented as of this encounter Care Teams Crate Repairer Relationship Specialty Start Date End Date Lj Hua MD [address] [place] [address], [address] [place] [address] [email or web address] PCP - General Internal Medicine 12/29/17 Lin Schuster MD [address] [place] [address], [address] [place] [address] [email or web address] Surgeon Urology 08/10/19 Lj Hua MD [address] [place] [address], [address] [place] [address] [email or web address] Insurance Assigned Provider 01/10/24 James Fair MD [address] [place] [address] [address] [place] [address] [email or web address] Medicine 11/13/20 Marina Reid MD [address] [place] [address] [place] [address] [email or web address] Medical Oncology 11/21/20 Wilmer Cavazos MD [address] [place] [address] [email or web address] U Urology 11/28/20 Vicenta Mahmood LICSW [address] [place] [address] [email or web address] Forensic Dna Analyst Oncology 01/04/21 Stephanie Purvis, SOWMYA [address] [place] [address] [email or web address] PHCM Hand Washer 02/24/23 06/08/25 Monica Bryson 10 [place] [address] [email or web address] PHCM Community Brush Machine Setter 05/31/24 05/31/24 Brynn Luciano, RN 10 [place] [address] [email or web address] PHCM Hand WasherTechnical Solution Architect 06/09/25 06/29/25 documented as of this encounter Additional Source Comments The information contained in this document represents components of the legal health record. It is not the complete legal health record.[facility]
--- OUTSIDE RECORDS SUMMARY | 2025-09-03 18:42 | XMS_ITS | Encounter Summary ---
Author Organization [facility] Address [address] [facility] [address] [place] [address] Phone Care Team Providers Care Italian Tutor Name Role Phone Lj Hua MD Primary Care Provider Lin Schuster MD Unavailable Lj Hua MD Unavailable [phone] James Fair MD Unavailable Marina Reid MD Unavailable [phone] Wilmer Cavazos MD Unavailable [phone] Vicenta MahmoodSW Unavailable [email or web address] Stephanie Aceves RN Unavailable [email or web address] Monica Bryson Unavailable matt Brynn Luciano RN Unavailable [phone] Encounter Details Date Type Department Care Team (Latest Contact Info) Description 02/01/2021 Transcribe Orders [facility] Phleb Nu [address] [id number] Hernan Mishra MD [address] [address] [email or web address] Crohn's disease with complication, unspecified gastrointestinal tract location (Primary Dx) Social History Tobacco Use Types [...] Description 09/06/2025 3:00 PM EST Nurse Only [address] [address] Lj Hua MD 22 [facility], [address] [place] [address] [email or web address] 09/08/2025 2:45 PM EST Procedure visit [facility] 10 [place] [address] Patricia Roy, SAFETY ASSOCIATE [address] [address] [email or web address] 09/09/2025 Procedure Pass [facility] CRP ENDO DEPT [address] [address] 09/09/2025 9:00 AM EST Hospital Encounter [facility] CRP ENDO DEPT [address] [address] Luz Elena Infante MD [address] [place] [address] [email or web address] 09/09/2025 9:00 AM EST Anesthesia Event [facility] CRP ENDO DEPT [address] [address] Christi Saxena [email or web address] 09/09/2025 9:00 AM EST - 09/09/2025 10:00 AM EST Surgery [facility] CRP ENDO DEPT [address] 9th [place] [address] Luz Elena Infante MD 55 [place] [address] [email or web address] COLONOSCOPY 09/20/2025 3:00 PM EST Office Visit [address] [place] [address] Lj Hua MD 22 [facility], [address] [place] [address] [email or web address] 11/04/2025 4:00 PM EST Office Visit [facility] Rheumatology [address] [place] [address] [place] [address] Coral Crews MD [address] [place] [address], [address] [place] [address] [email or web address] Scheduled Procedures Name Priority Associated Diagnoses Date/Ti ct COLONOSCOPY 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 with other complication 09/09/2025 9:00 AM EST documented as of this encounter Results * (ABNORMAL) CBC and differential (02/01/2021 3:40 PM EDT) WBC 13.82(H) 4.00 - 11.00 K/uL [facility] RBC 3.56(L) 3.90 - 5.69 M/uL [facility] HGB 9.0(L) 12.4 - 17.3 g/dL [facility] HCT 29.9(L) 37.0 - 51.0 % [facility] PLT 382 140 - 430 K/uL [facility] MCV 84.0 78.0 - 97.0 fL [facility] MCH 25.3 25.0 - 33.0 pg [facility] MCHC 30.1(L) 32.0 - 36.0 g/dL [facility] RDW 18.6(H) 11.0 - 15.0 % [facility] MPV 9.1 8.4 - 12.8 fl [facility] NRBC 0.00 0 /100 WBCs [facility] ABSOLUTE NRBC 0.00 0 K/uL [facility] DIFF METHOD Auto [facility] NEUTS 84.9(H) 43.0 - 75.0 % [facility] LYMPHS 7.3(L) 18.2 - 47.4 % [facility] MONOS 4.4 4.00 - 11.00 % [facility] EOS 2.0 0.0 - 8.0 % [facility] BASOS 0.5 0.0 - 2.0 % [facility] Granulocytes, immature (%) 0.9 0.0 - 0.9 % [facility] ABSOLUTE NEUTS 11.73(H) 1.80 - 7.70 K/uL [facility] ABSOLUTE LYMPHS 1.01 1.00 - 3.10 K/uL [facility] ABSOLUTE MONOS 0.61 0.20 - 0.80 K/uL [facility] ABSOLUTE EOS 0.27 0.00 - 0.80 K/uL [facility] ABSOLUTE BASOS 0.07 0.00 - 0.09 K/uL [facility] Granulocytes, immature 0.13(H) 0.00 - 0.05 K/uL [facility] Blood 02/01/2021 3:40 PM EDT 02/01/2021 3:45 PM EDT us Hernan Mishra MD LAB BLOOD BKR ORDERABLES F inal Result [facility] 30 [place] [address] * (ABNORMAL) Comprehensive metabolic panel (02/01/2021 3:40 PM EDT) SODIUM 138 133 - 146 mmol/L [facility] POTASSIUM 4.5 3.3 - 5.1 mmol/L [facility] CHLORIDE 102 96 - 108 mmol/L [facility] CO2 23 21 - 35 mmol/L [facility] BUN 20(H) 6 - 19 mg/dL [facility] CREATININE 0.80 0.5 - 1.5 mg/dL [facility] GLUCOSE 116(H) 70 - 99 mg/dL [facility] ALBUMIN 4.0 3.9 - 4.8 g/dL [facility] TOTAL PROTEIN 8.0 6.5 - 8.0 g/dL [facility] CALCIUM 9.0 8.4 - 10.3 mg/dL [facility] ALKALINE PHOSPHATASE 60 39 - 117 U/L [facility] TOTAL BILIRUBIN <0.2 0.0 - 1.2 mg/dL [facility] AST 14 0 - 37 U/L [facility] ALT 9 0 - 40 U/L [facility] GLOBULIN 4.0 1 - 4.8 g/dL [facility] EGFR 97 >59 mL/min/1.7 3m2 [facility] Comment:Estimated glomerular filtration rate calculated using the CKD-EPI equation. ANION GAP 18 10 - 20 mmol/L [facility] Blood 02/01/2021 3:40 PM EDT 02/01/2021 3:45 PM EDT Hernan Mishra MD LAB BLOOD BKR ORDERABLES F inal Result Performing Organization Address City/State/[facility] Co de Phone Number [address] [address] documented in this encounter Visit Diagnoses Diagnosis Crohn's disease with complication, unspecified gastrointestinal tract location- Primary 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 with [...] documented as of this encounter Care Teams Italian Tutor Relationship Specialty Start Date End Date Lj Hua MD [address] [place] [address], [address] [place] [address] [email or web address] PCP - General Internal Medicine 12/29/17 Lin Schuster MD [address] [place] [address], [address] [place] [address] Surgeon Urology 08/10/19 Lj Hua MD [address] [place] [address], [address] [place] [address] [email or web address] Insurance Assigned Provider 01/10/24 James Fair MD [address] [place] [address] [address] [place] [address] [email or web address] Internal Medicine 11/13/20 Mraina Reid MD [address] [place] [address] [place] [address] [email or web address] Medical Oncology 11/21/20 Wilmer Cavazos MD [address] [place] [address] 11-3 [place] [address] [email or web address] 11/28/20 Vicenta Mahmood, AIR POLLUTION SPECIALIST [address] [facility], [facility] [address] [place] [address] Ana [email or web address] Medical Affairs Manager Oncology 01/04/21 Stephanie Purvis, SOWMYA [address] [place] [address], [facility] [address] [place] [address] [email or web address] PHCM Qa Software Test Engineer 02/24/23 06/08/25 Monica Bryson [address] [place] [address] [email or web address] PHCM Community Maintenance Associate 05/31/24 05/31/24 Brynn Luciano, RN [address] [place] [address] [id number] PHCM Qa Software Test EngineerHospitalist Medical Director 06/09/25 06/29/25 documented as of this encounter Additional Source Comments The information contained in this document represents components of the legal health record. It is not the complete legal health record.[facility]
--- OUTSIDE RECORDS SUMMARY | 2025-09-03 18:42 | XMS_ITS | Encounter Summary ---
Author Organization [facility] Address [address] [facility] [address] [place] [address] Phone Care Team Providers Care Finishing Supervisor Plastic Sheets Name Role Phone Lj Hua MD Primary Care Provider [phone] Lin Schuster MD Unavailable [phone] Lj Hua MD Unavailable [phone] James Fair MD Unavailable Marina Reid MD Unavailable [phone] Wilmer Cavazos MD Unavailable [phone] Vicenta MahmoodSW Unavailable [email or web address] Stephanie Aceves RN Unavailable [email or web address] Monica Bryson Unavailable matt Brynn Luciano RN Unavailable [phone] Encounter Details Date Type Department Care Team (Late st Contact Info) Description 08/22/2022 Procedure Pass [facility] Endoscopy Admitting Dept Virtual Department 30 [place], [place] [id number] Social History Tobacco Use Types Packs/Day Years Used Date Smoking Tobacco: Never Smokeless Tobacco: Never Alcohol Use Standard Drinks/Week Comments Yes 0 (1 standard drink = 0.6 oz pur e alcohol) none in 30 yrs Sex and Gender Information Value Date Recorded Sex Assigned at Male 06/23/2019 5:39 AM EDT Legal Sex Male 9:48 PM EDT Gender Identity Male 06/23/2019 5:39 AM EDT Sexual Orientation Straight 06/23/2019 5: 39 AM EDT documented as of this encounter Plan of Treatment Upcoming Encounters Date Type Department Care Team (Latest Contact Info) Description 09/06/2025 3:00 PM EST Nurse Only [address] [place] [address] Lj Hua MD 22 [facility], [address] [place] [address] [email or web address] 09/08/2025 2:45 PM EST Procedure visit [facility] Gastroenterology Clinic 10 [place] [address] Patricia Roy, QUAN [address] [address] [email or web address] 09/09/2025 Procedure Pass [facility] CRP ENDO DEPT [address] [address] 09/09/2025 9:00 AM EST Hospital Encounter [facility] CRP ENDO DEPT [address] [address] Luz Elena Ifnante MD [address] [place] [address] [email or web address] 09/09/2025 9:00 AM EST Anesthesia Event [facility] CRP ENDO DEPT [address] [address] Christi Saxena RN [email or web address] 09/09/2025 9:00 AM EST - 09/09/2025 10:00 AM EST Surgery [facility] CRP ENDO DEPT [address] [address] Luz Elena Infante MD [address] [place] [address] [email or web address] COLONOSCOPY 09/20/2025 3:00 PM EST Office Visit [facility] Medicine [address] [place] [address] Lj Hua MD [address] [place] [address], [address] [place] [address] 11/04/2025 4:00 PM EST Office Visit [facility] Rheumatology [address] [place] [address] Coral Crews MD [address] [place] [address], [address] [place] [address] [email or web address] Scheduled Procedures Name Priority Associated Diagnoses Date/Ti me COLONOSCOPY 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 with other complication 09/09/2025 9:00 AM EST documented as of this encounter Visit Diagnoses [...] documented as of this encounter Care Teams Finishing Supervisor Plastic Sheets Relationship Specialty Start Date End Date Lj Hua MD [address] [place] [address], [address] [place] [address] [email or web address] PCP - General Internal Medicine 12/29/17 Lin Schuster MD [address] [place] [address], [address] [place] [address] [email or web address] Surgeon Urology 08/10/19 Lj Hua MD [address] [place] [address], [address] [place] [address] [email or web address] Insurance Assigned Provider 01/10/24 James Fair MD [address] [place] [address] [address] [place] [address] [email or web address] Internal Medicine 11/13/20 Marina Reid MD [address] [place] [address] 12[address] [place] [address] [email or web address] Medical Oncology 11/21/20 Wilmer Cavazos MD [address] [place] [address] [email or web address]. U Urology 11/28/20 Vicenta Mahmood, TONSORIAL ARTIST[address] [place], [place] [email or web address] Bakery Demonstrator Oncology 01/04/21 Stephanie Purvis, SOWMYA [address] [place] [address] [email or web address] PHCM Diplomatic Interpreter/Translator 02/24/23 06/08/25 Monica Bryson 10 [place] [address] [email or web address] PHC Community Project Surveyor 05/31/24 05/31/24 Brynn Luciano RN 10 [place] [address] [email or web address] PHCM Diplomatic Interpreter/TranslatorRocket Propellant Plant Supervisor 06/09/25 06/29/25 documented as of this encounter Additional Source Comments The information contained in this document represents components of the legal health record. It is not the complete legal health record.[facility]
--- OUTSIDE RECORDS SUMMARY | 2025-09-03 18:42 | XMS_ITS | Encounter Summary ---
Author Organization [facility] Address [address] [place] [address] Phone Care Team Providers Care Director Of Annual Giving Name Role Phone Lj Hua MD Primary Care Provider Lin Schuster MD Unavailable Lj Hua MD Unavailable [phone] James Fair MD Unavailable Marina Reid MD Unavailable [phone] Wilmer Cavazos MD Unavailable [phone] Vicenta MahmoodSW Unavailable [email or web address] Stephanie Aceves RN Unavailable [email or web address] Monica Bryson Unavailable matt Brynn Luciano RN Unavailable [phone] Encounter Details Date Type Department Care Team (Latest Contact Info) Description 08/26/2018 Transcribe Orders [facility] Phleb Main [address] [place] [address] Hernan Mishra MD [address] [id number] 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 with complication [...] Description 09/06/2025 3:00 PM EST Nurse Only [address] [address] Lj Hua MD [address] [place] [address], [address] [place] [address] [email or web address] 09/08/2025 2:45 PM EST Procedure visit [facility] 10 [place] [address] Patricia Roy, CHANGER FIXER [address] [address] [email or web address] 09/09/2025 Procedure Pass [facility] CRP ENDO DEPT [address] [address] 09/09/2025 9:00 AM EST Hospital Encounter [facility] CRP ENDO DEPT [address] [address] Luz Elena Infante MD [address] [place] [address] [email or web address] 09/09/2025 9:00 AM EST Anesthesia Event [facility] CRP ENDO DEPT [address] [address] Christi Saxena RN [email or web address] 09/09/2025 9:00 AM EST - 09/09/2025 10:00 AM EST Surgery [facility] CRP ENDO DEPT [address] [place] [address] Luz Elena Infante MD [address] [place] [address] [email or web address] COLONOSCOPY 09/20/2025 3:00 PM EST Office Visit [facility] Medicine [address] [place] [address] [place] [address] Lj Hua MD [address] [place] [address], [address] [place] [address] [email or web address] 11/04/2025 4:00 PM EST Office Visit [facility] Rheumatology [address] [place] [address] Coral Crews MD [address] [place] [address], [address] [place] [address] [email or web address] Scheduled Procedures Name Priority Associated Diagnoses Date/Ti me COLONOSCOPY 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 with other complication 09/09/2025 9:00 AM EST documented as of this encounter Results * (ABNORMAL) Calprotectin, stool (08/26/2018 12:55 PM EST) Calprotectin, stool 2,022.1( H) <50.0 mcg/g [facility] Calprotectin Interp Positive (A) Negative [facility] Stool (Stool) 08/26/2018 12: 55 PM EST 08/26/2018 1:59 PM EST us Hernan Mishra MD LAB BODY FLUIDS AND STOOL ORDERABLES Final Result [address] [address] documented in this encounter Visit Diagnoses Diagnosis [...] documented as of this encounter Care Teams Director Of Annual Giving Relationship Specialty Start Date End Date Lj Hua MD [address] [place] [address], [address] [address] [email or web address] PCP - General Internal Medicine 12/29/17 Lin Schuster MD [address] [place] [address], [address] [address] Surgeon Urology 08/10/19 Lj Hua MD [address] [place] [address], [address] [address] [email or web address] Insurance Assigned Provider 01/10/24 James Fair MD [address] [place] [address] [email or web address] Internal Medicine 11/13/20 Marina Reid MD [address] [place], [place] [email or web address] Medical Oncology 11/21/20 Wilmer Cavazos MD [address] [place] [address] [email or web address] U Urology 11/28/20 Vicenta Mahmood [address] [address] [email or web address] Casting Cleaner Oncology 01/04/21 Stephanie Purvis, SOWMYA [address] [place] [address] [email or web address]. [facility] PHCM Director Acute 02/24/23 06/08/25 Monica Bryson [address] [place] [address] [email or web address] PHCM Community Finishing Range Operator 05/31/24 05/31/24 Brynn Luciano, RN [address] [place] [address] PHCM Director AcuteSenior Procurement Manager 06/09/25 06/29/25 documented as of this encounter Additional Source Comments The information contained in this document represents components of the legal health record. It is not the complete legal health record.[facility]
--- OUTSIDE RECORDS SUMMARY | 2025-09-03 18:42 | XMS_ITS | Clinical Summary ---
Author Organization [facility] Address [address] [place] [address] Care Team Providers Care Chief Underwriter Name Role Phone Lj Hua MD Primary Care Provider [phone] Allergies Active Allergy Reactions Criticality Noted Date [...] of 2) 2010 Influenza Vaccine (#1) 2025 Fall Risk Assessment 2025 Pneumococcal Vaccine (1 of 1 - [...] age to complete this topic Care Teams Chief Underwriter Relationship Specialty Start Date End Date Lj Hua MD [address] [place] [id number] PCP - General Internal Medicine 01/21/18
--- OUTSIDE RECORDS SUMMARY | 2025-09-03 18:42 | XMS_ITS | Encounter Summary ---
Author Organization [facility] Address [address] [facility] [address] [place] [address] Phone Care Team Providers Care Monorail Car Operator Name Role Phone Lj Hua MD Primary Care Provider Lin Schuster MD Unavailable Lj Hua MD Unavailable [phone] James Fair MD Unavailable Marina Reid MD Unavailable [phone] Wilmer Cavazos MD Unavailable [phone] Vicenta MahmoodSW Unavailable [email or web address] Stephanie Aceves RN Unavailable [email or web address] Monica Bryson Unavailable matt Brynn Luciano RN Unavailable [phone] Encounter Details Date Type Department Care Team (Late st Contact Info) Description 04/25/2020 Procedure Pass [facility] Endoscopy Admitting Dept Virtual Department 30 [place] [address] Social History Tobacco Use Types Packs/Day Years [...] Description 09/06/2025 3:00 PM EST Nurse Only [place] [address] [place] [address] Lj Hua MD 22 [facility], [address] [place] [address] [email or web address] 09/08/2025 2:45 PM EST Procedure visit [facility] 10 [place] [address] Patricia Roy, QUAN [address] [address] [email or web address] 09/09/[address] [facility] CRP ENDO DEPT [address] [address] 09/09/2025 9:00 AM EST Hospital Encounter [facility] CRP ENDO DEPT [address] [address] Luz Elena Infante MD [address] [place] [address] [email or web address] 09/09/2025 9:00 AM EST Anesthesia Event [facility] CRP ENDO DEPT [address] [address] Christi Saxena RN [email or web address] 09/09/2025 9:00 AM EST - 09/09/2025 10:[address] [facility] CRP ENDO DEPT [address] [address] Luz Elena Infante MD [address] [place] [address] [email or web address] COLONOSCOPY 09/20/2025 3:00 PM EST Office Visit [facility] Medicine [address] [place] [address] Lj Hua MD [address] [place] [address], [address] [place] [address] 11/04/2025 4:00 PM EST Office Visit [facility] Rheumatology [address] [place] [address] Coral Crews MD [address] [place] [address], [address] [place] [address] [email or web address] Scheduled Procedures Name Priority Associated Diagnoses Date/Ti vt COLONOSCOPY 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 with [...] documented as of this encounter Care Teams Monorail Car Operator Relationship Specialty Start Date End Date Lj Hua MD [address] [place] [address], [address] [place] [address] [email or web address] PCP - General Internal Medicine 12/29/17 Lin Schuster MD [address] [place] [address], [address] [place] [address] [email or web address] Surgeon Urology 08/10/19 Lj Hua MD [address] [place] [address], [address] [place] [address] [email or web address] Insurance Assigned Provider 01/10/24 James Fair MD [address] [place] [address] [address] [place] [address] [email or web address] Internal Medicine 11/13/20 Marina Reid MD [address] [place] [address] [place] [address] [email or web address] Medical Oncology 11/21/20 Wilmer Cavazos MD [address] [place] [address] [email or web address] U Urology 11/28/20 Vicenta Mahmood, [address] [email or web address] Vp Securities Oncology 01/04/21 Stephanie Purvis, SOWMYA [address] [place] [address] [email or web address] PHCM Pmo Business Analyst 02/24/23 06/08/25 Monica Bryson [address] [place] [address] [email or web address] PHC Community Furnishings Conservator 05/31/24 05/31/24 Brynn Luciano, SOWMYA [address] [place] [address] [email or web address] PHC Pmo Business AnalystManager Shop 06/09/25 06/29/25 documented as of this encounter Additional Source Comments The information contained in this document represents components of the legal health record. It is not the complete legal health record.[facility]
--- OUTSIDE RECORDS SUMMARY | 2025-09-03 18:42 | XMS_ITS | Clinical Summary ---
Author Organization [address] [facility] Address [address] [place] [address] Phone Care Team Providers Care Vice Squad Police Officer Name Role Phone Physician, Pcp Unknown Primary Care Provider Alisson vailable Allergies Active Allergy Reactions Criticality Noted Date Comments Diphenhydramine Hcl 11/04/2024 Penicillins 11/04/2024 Medications ammonium lactate (AmLactin) 12 % lotion Apply topically if needed for dry skin. 400 g 2 5 11/04/19 26 Active Encounters Date Type Department Care Team Description 08/30/2025 2:30 PM EST Office Visit Orthopedic Surgery [place] [address] [phone] Uriel Michaud DPM PVD (peripheral vascular disease) ([facility] V24) (Primary Dx); Lumbosacral radiculopathy; Arthritis of both feet; Bilateral foot pain; Dermatophytosis, nail 07/12/2025 2:45 PM EDT [facility] Visit [facility] [address] [phone] Uriel Michaud DPM PVD (peripheral vascular disease) ([facility] V24) (Primary Dx); Lumbosacral radiculopathy; Arthritis of both feet; Bilateral foot pain; Dermatophytosis, nail from Last 3 Months Social [...] PM EST Office Visit [facility] [place] [address] [place] [address] Uriel Michaud, JOSUE [address] [facility] [address] [place] [address] Health Maintenance Due Date Last Done Comments Colorectal Cancer Screening: Colonoscopy 1960 RSV Immunization Adult Patients (1 - Risk 50-74 years 1-dose series) 2010 Zoster Vaccines (1 of 2) 2010 Pneumococcal Vaccine: 50+ Years (2 of 2 - PCV) 06/18/2022 06/18/2021 Hepatitis C Screening 09/04/2022 Medicare Annual Wellness Visit 09/04/2022 Social Influencers of Health Screening 09/04/2022 Depression Screening 10/06/2024 COVID-19 Vaccine ( season) 2025 09/11/2022, 03/20/2022, 10/03/2021, Additional history exists Influenza Vaccine (#1) 2025 Falls Risk Assessment 2025 Cholesterol Screening (Lipid Panel) 03/14/2030 03/14/2025, [...] Phone Billing Address Personal/Family Self 1960 [address] [facility] [place] [address] MEDICAID - [place] MEDICARE Care Teams Vice Squad Police Officer Relationship Specialty Start Date End Date Physician, Pcp Unknown PCP - General 11/02/24
--- OUTSIDE RECORDS SUMMARY | 2025-09-03 18:42 | XMS_ITS | Encounter Summary ---
Author Organization [facility] Address [address] [facility] [address] [place] [address] Phone Care Team Providers Care Manager Country Name Role Phone Lj Hua MD Primary Care Provider Lin Schuster MD Unavailable Lj Hua MD Unavailable [phone] James Fair MD Unavailable Marina Reid MD Unavailable [phone] Wilmer Cavazos MD Unavailable [phone] Vicenta MahmoodSW Unavailable [email or web address]. Stephanie Aceves RN Unavailable [email or web address] Monica Bryson Unavailable matt Brynn Luciano RN Unavailable [phone] Encounter Details Date Type Department Care Team (Latest Contact Info) Description 12/25/2023 Transcribe Orders [facility] Phleb Nu [address] [address] [place] CNP [address] [facility] [place], [place] [phone] [email or web address] Screening for prostate cancer (Primary Dx) Social History Tobacco Use Types [...] Description 09/06/2025 3:00 PM EST Nurse Only [address] [address] Lj Hua MD [address] [place] [address], [address] [place] [address] [email or web address] 09/08/2025 2:45 PM EST Procedure visit [facility] G[facility] 10 [place] [address] Patricia Roy, QUAN [address] [address] [email or web address] 09/09/2025 Procedure Pass [facility] CRP ENDO DEPT [address] [address] 09/09/2025 9:00 AM EST Hospital Encounter [facility] CRP ENDO DEPT [address] [address] Luz Elena Infante MD [address] [place] [address] [email or web address] 09/09/2025 9:00 AM EST Anesthesia Event [facility] CRP ENDO DEPT [address] [address] Christi Saxena RN [email or web address] 09/09/2025 9:00 AM EST - 09/09/2025 10:00 AM EST Surgery [facility] CRP ENDO DEPT [address] [address] Luz Elena Infante MD [address] [place] [address] [email or web address] COLONOSCOPY 09/20/2025 3:00 PM EST Office Visit [address] [place] [address] Lj Hua MD [address] [place] [address], [address] [place] [address] [email or web address] 11/04/2025 4:00 PM EST Office Visit [facility] Rheumatology [address] [place] [address] [place] [address] Coral Crews MD [address] [place] [address], [address] [place] [address] [email or web address] Scheduled Procedures Name Priority Associated Diagnoses Date/Ti nv COLONOSCOPY 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 with other complication 09/09/2025 9:00 AM EST documented as of this encounter Results * (ABNORMAL) PSA (screening) (12/25/2023 2:58 PM EDT) PSA 9.74(H) 0 - 4.00 ng/mL [facility] Comment: Test Methodology Gael [id number] Patient results determined by assays using different manufacturers or methods may not be comparable. Blood 12/25/2023 2:58 PM EDT 12/25/2023 3:00 PM EDT us [place] KEG RAISER LAB BLOOD BKR ORDERABLES F inal Result [facility] [address] [place] [address] documented in this encounter Visit Diagnoses Diagnosis Screening for prostate cancer- Primary Special screening for malignant neoplasm of prostate 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 with other complication documented in this encounter Additional Health Concerns Infection Onset Date Last Indicated Resolved Time CDiff-Risk 02/19/2024 04/14/2024 02/26/2024 1:21 AM EDT CDiff-Risk 04/14/2024 04/14/2024 04/14/2024 5:05 PM EDT CDiff-Risk 11/29/2024 01/19/2025 12/06/2024 1:22 AM EST CDiff-Risk 01/19/2025 01/19/2025 01/19/2025 11:0 8 PM EDT CDiff-Risk 08/17/2025 08/20/2025 08/20/2025 2:05 PM EST Assessment Noted Time PHQ-2 Depression Total Score: 2 03/28/20 23 1:26 PM EDT documented as of this encounter Care Teams Manager Country Relationship Specialty Start Date End Date Lj Hua MD [address] [place] [address], [address] [place] [address] PCP - General Internal Medicine 12/29/17 Lin Schuster MD [address] [place] [address], [address] [place] [address] Surgeon Urology 08/10/19 Lj Hua MD [address] [place] [address], [address] [place] [address] Insurance Assigned Provider 01/10/24 James Fair MD [address] [place] [address] [email or web address] Internal Medicine 11/13/20 Marina Reid MD [address] [place], [place] [email or web address] Medical Oncology 11/21/20 Wilmer Cavazos MD [address] [place] [address] [email or web address] U Urology 11/28/20 Vicenta Mahmood, [address] [email or web address] Exhaust And Muffler Fitter Oncology 01/04/21 Stephanie Purvis, SOWMYA [address] [place] [address] [email or web address] PHCM Music Video Director 02/24/23 06/08/25 Monica Bryson [address] [place] [address] [email or web address] PHCM Community Anesthesiology Resident 05/31/24 05/31/24 Brynn Luciano, RN [address] [place] [address] PHCM Music Video DirectorJacquard Loom Fixer 06/09/25 06/29/25 documented as of this encounter Additional Source Comments The information contained in this document represents components of the legal health record. It is not the complete legal health record.[facility]
--- OUTSIDE RECORDS SUMMARY | 2025-09-03 18:42 | XMS_ITS | Encounter Summary ---
Author Organization [facility] Address [address] [facility] [address] [place] [address] Phone Care Team Providers Care Systems Tester Name Role Phone Lj Hua MD Primary Care Provider Lin Schuster MD Unavailable Lj Hua MD Unavailable [phone] James Fair MD Unavailable Marina Reid MD Unavailable [phone] Wilmer Cavazos MD Unavailable [phone] Vicenta MahmoodSW Unavailable [email or web address]. Stephanie Aceves RN Unavailable [email or web address] Brynn Luciano RN Unavailable [phone] Encounter Details Date Type Department Care Team (Latest Contact Info) Description 06/09/2024 Transcribe Orders [facility] Phleb Nu [address] [address] Patricia Roy NP 10 [place], [place] [id number] Crohn's disease of small intestine without complication (Primary Dx) Social History Tobacco [...] Description 09/06/2025 3:00 PM EST Nurse Only [facility] Medicine [address] [place] [address] Lj Hua MD [address] [place] [address], [address] [place] [address] 09/08/2025 2:45 PM EST Procedure visit [facility] 10 [place] [address] Patricia Roy, QUAN [address] [address] [email or web address] 09/09/2025 Procedure Pass [facility] ENDO DEPT [address] [address] 09/09/2025 9:00 AM EST Hospital Encounter [facility] CRP ENDO DEPT [address] [address] Luz Elena Infante MD [address] [place] [address] [email or web address] 09/09/2025 9:00 AM EST Anesthesia Event [facility] CRP ENDO DEPT [address] [address] Christi Saxena RN [email or web address] 09/09/2025 9:00 AM EST - 09/09/2025 10:00 AM EST Surgery [facility] CRP ENDO DEPT [address] [address] Luz Elena Infante MD [address] [place] [address] [email or web address] COLONOSCOPY 09/20/2025 3:00 PM EST Office Visit [address] [place] [address] Lj Hua MD [address] [place] [address], [address] [place] [address] [email or web address] 11/04/2025 4:00 PM EST Office Visit [facility] Rheumatology [address] [place] [address] [place] [address] Coral Crews MD [address] [place] [address], [address] [place] [address] [email or web address] Scheduled Procedures Name Priority Associated Diagnoses Date/Ti ut COLONOSCOPY 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 with other complication 09/09/2025 9:00 AM EST documented as of this encounter Results * 25-OH vitamin D (06/09/2024 1:31 PM EDT) 25 OH VIT D (TOTAL) 48 30 - 60 ng/mL [facility] Blood 06/09/2024 1:31 PM EDT 06/09/2024 1:38 PM EDT Patricia Justina Willemain SENIOR INVESTIGATOR LAB BLOOD BKR ORDERABLES Final Result [address] [address] * (ABNORMAL) Vitamin B12 (06/09/2024 1:31 PM EDT) VITAMIN B12 181(L) 232 - 1,245 pg/mL [facility] Blood 06/09/2024 1:31 PM EDT 06/09/2024 1:38 PM EDT us Patricia Roy NP LAB BLOOD BKR ORDERABLES Final Result Performing Organization Address [facility]/ZIP Co de Phone Number [address] [address] * Iron and iron binding capacity (06/09/2024 1:31 PM EDT) IRON 59 45 - 160 ug/dL [facility] IRON BINDING CAPACITY 268 228 - 428 ug/dL [facility] TRANSFERRIN SATURAT. 22 20 - 55 % [facility] Blood 06/09/2024 1:31 PM EDT 06/09/2024 1:38 PM EDT us Patricia Roy NP LAB BLOOD BKR ORDERABLES Final Result Performing Organization Address [facility]/ZIP Co de Phone Number [address] [address] * (ABNORMAL) C-Reactive Protein (06/09/2024 1:31 PM EDT) C REACTIVE PROTEIN 15.4(H) 0.0 - 4.0 mg/L [facility] Blood 06/09/2024 1:31 PM EDT 06/09/2024 1:38 PM EDT us Patricia Roy NP LAB BLOOD BKR ORDERABLES Final Result [address] [address] * (ABNORMAL) Comprehensive metabolic panel (06/09/2024 1:31 PM EDT) SODIUM 141 133 - 146 mmol/L [facility] POTASSIUM 4.4 3.3 - 5.1 mmol/L [facility] CHLORIDE 105 96 - 108 mmol/L [facility] CO2 23 21 - 35 mmol/L [facility] BUN 17 6 - 19 mg/dL [facility] CREATININE 0.80 0.5 - 1.5 mg/dL [facility] GLUCOSE 135(H) 70 - 99 mg/dL [facility] ALBUMIN 3.8(L) 3.9 - 4.8 g/dL [facility] TOTAL PROTEIN 7.1 6.5 - 8.0 g/dL [facility] CALCIUM 8.9 8.4 - 10.3 mg/dL [facility] ALKALINE PHOSPHATASE 162(H) 39 - 117 U/L [facility] TOTAL BILIRUBIN <0.2 0.0 - 1.2 mg/dL [facility] AST 16 0 - 37 U/L [facility] ALT 9 0 - 40 U/L [facility] GLOBULIN 3.3 1 - 4.8 g/dL [facility] EGFR 99 >59 mL/min/1.7 3m2 [facility] Comment:Estimated glomerular filtration rate calculated using the CKD-EPI refit equation. ANION GAP 17 10 - 20 mmol/L [facility] Blood 06/09/2024 1:31 PM EDT 06/09/2024 1:38 PM EDT us Patricia Roy NP LAB BLOOD BKR ORDERABLES Final Result [facility] [address] [place] [address] * (ABNORMAL) CBC (06/09/2024 1:31 PM EDT) WBC 15.17(H) 4.00 - 11.00 K/uL [facility] RBC 3.60(L) 3.90 - 5.69 M/uL [facility] HGB 11.2(L) 12.4 - 17.3 g/dL [facility] HCT 36.2(L) 37.0 - 51.0 % [facility] PLT 227 140 - 430 K/uL [facility] MCV 100.6(H) 78.0 - 97.0 fL [facility] MCH 31.1 25.0 - 33.0 pg [facility] MCHC 30.9(L) 32.0 - 36.0 g/dL [facility] RDW 15.0 11.0 - 15.0 % [facility] MPV 9.8 8.4 - 12.8 fl [facility] Blood 06/09/2024 1:31 PM EDT 06/09/2024 1:38 PM EDT us Patricia Roy SENIOR INVESTIGATOR LAB BLOOD BKR ORDERABLES Final Result Performing Organization Address City/State/[facility] Co de Phone Number [facility] [address] [place], [place] [phone] documented in this encounter Visit Diagnoses Diagnosis Crohn's disease of small intestine without complication- Primary 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 with other complication documented in this encounter Additional Health Concerns Infection Onset Date Last Indicated Resolved Time CDiff-Risk 11/29/2024 01/19/2025 12/06/2024 1:22 AM EST CDiff-Risk 01/19/2025 01/19/2025 01/19/2025 11:0 8 PM EDT CDiff-Risk 08/17/2025 08/20/2025 08/20/2025 2:05 PM EST Assessment Noted Time PHQ-2 Depression Total Score: 2 03/28/20 23 1:26 PM EDT documented as of this encounter Care Teams Systems Tester Relationship Specialty Start Date End Date Lj Hua MD [address] [place] [address], [address] [place], [place] [id number] [email or web address] PCP - General Internal Medicine 12/29/17 Lin Schuster MD [address] [place] [address], [address] [place] [address] [email or web address] Surgeon Urology 08/10/19 Lj Hua MD [address] [place] [address], [address] [place] [address] Insurance Assigned Provider 01/10/24 James Fair MD [address] [facility] [address] [place] [address] [email or web address] Internal Medicine 11/13/20 Marina Reid MD [address] [facility] [address] [place] [address] [email or web address] Medical Oncology 11/21/20 Wilmer Cavazos MD [address] [place] [address] [email or web address]. U Urology 11/28/[address] Vicenta [address]mood [address] [address] [email or web address] Treasurer Oncology 01/04/21 Stephanie Purvis, SOWMYA [address] [place] [address] [email or web address] PHCM Truck Driver Heavy 02/24/23 06/08/25 Brynn Luciano, SOWMYA [address] [place] [address] [email or web address] PHCM Truck Driver HeavyProduction Support Developer 06/09/25 06/29/25 documented as of this encounter Additional Source Comments The information contained in this document represents components of the legal health record. It is not the complete legal health record.[facility]
--- OUTSIDE RECORDS SUMMARY | 2025-09-03 18:42 | XMS_ITS | Encounter Summary ---
Author Organization [facility] Address [address] [facility] [address] [place] [address] Phone Care Team Providers Care Baling Machine Tender Name Role Phone Lj Hua MD Primary Care Provider Lin Schuster MD Unavailable [phone] Lj Hua MD Unavailable [phone] James Fair MD Unavailable Marina Reid MD Unavailable [phone] Wilmer Cavazos MD Unavailable [phone] Vicenta MahmoodSW Unavailable [email or web address]. Stephanie Aceves RN Unavailable [email or web address] Monica Bryson Unavailable matt Brynn Luciano RN Unavailable [phone] Encounter Details Date Type Department Care Team (Latest Contact Info) Description 09/16/2022 Transcribe Orders [facility] Phleb Nu [address] [phone] Hernan Mishra MD [address] [address] 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 with complication [...] Description 09/06/2025 3:00 PM EST Nurse Only [address] [address] Lj Hua MD 22 [facility], [address] [place] [address] [email or web address] 09/08/2025 2:45 PM EST Procedure visit [facility] Gastroenterology Clinic 10 [place] [address] Patricia Roy, TRAFFIC EXPERT [address] [address] [email or web address] 09/09/2025 Procedure Pass [facility] CRP ENDO DEPT [address] [address] 09/09/2025 9:00 AM EST Hospital Encounter [facility] CRP ENDO DEPT [address] [address] Luz Elena Infante MD [address] [place] [address] [email or web address] 09/09/2025 9:00 AM EST Anesthesia Event [facility] CRP ENDO DEPT [address] [address] Christi Saxena RN [email or web address] 09/09/2025 9:00 AM EST - 09/09/2025 10:00 AM EST Surgery [facility] CRP ENDO DEPT [address] [place] [address] Luz Elena Infante MD [address] [place] [address] [email or web address] COLONOSCOPY 09/20/2025 3:00 PM EST Office Visit [facility] Medicine [address] [place] [address] Lj Hua MD [address] [facility], [address] [place] [address] [email or web address] 11/04/2025 4:00 PM EST Office Visit [facility] Rheumatology [address] [place] [address] Coral Crews MD [address] [place] [address], [address] [place] [address] [email or web address] Scheduled Procedures Name Priority Associated Diagnoses Date/Ti me COLONOSCOPY 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 with other complication 09/09/2025 9:00 AM EST documented as of this encounter Results * (ABNORMAL) Calprotectin, stool (09/17/2022 3:59 PM EST) STOOL CALPROTECTIN 315(H) mcg/g [facility] Comment: (NOTE) Reference Range: <50 Normal 50-120 Borderline >120 Elevated Calprotectin in Crohn's disease and ulcerative colitis can be five to several thousand times above the reference population (50 mcg/g or less). Levels are usually 50 mcg/g or less in healthy patients and with irritable bowel syndrome. Repeat testing in 4-6 weeks is suggested for borderline values. Stool (Stool) 09/17/2022 3:5 9 PM EST 09/17/2022 4:00 PM EST Hernan Mishra MD LAB BODY FLUIDS AND STOOL ORDERABLES Final Result [facility] [address] [place] [address], [facility] [phone] documented in this encounter Visit Diagnoses Diagnosis [...] documented as of this encounter Care Teams Baling Machine Tender Relationship Specialty Start Date End Date Lj Hua MD [address] [place] [address], [address] [place] [address] PCP - General Internal Medicine 12/29/17 Lin Schuster MD [address] [place] [address], [address] [place] [address] Surgeon Urology 08/10/19 Lj Hua MD [address] [place] [address], [address] [place] [address] Insurance Assigned Provider 01/10/24 James Fair MD [address] [place] [address] [email or web address] Internal Medicine 11/13/20 Marina Reid MD 450 [facility] 1230 [place] [address] [email or web address] Medical Oncology 11/21/20 Wilmer Cavazos MD [address] [place] [address] [email or web address] U Urology 11/28/20 Vicenta Mahmood, [address] [address] [email or web address] Secretary Oncology 01/04/21 Stephanie Purvis, SOWMYA [address] [place] [address] [email or web address] PHCM Lpn Private Duty 02/24/23 06/08/25 Monica Bryson [address] [place] [address] [email or web address] PHCM Community Circuit Recorder 05/31/24 05/31/24 Brynn Luciano, RN [address] [place] [phone] PHCM Lpn Private DutyDrafter Patent 06/09/25 06/29/25 documented as of this encounter Additional Source Comments The information contained in this document represents components of the legal health record. It is not the complete legal health record.[facility]
--- OUTSIDE RECORDS SUMMARY | 2025-09-03 18:42 | XMS_ITS | Encounter Summary ---
Author Organization [facility] Address [address] [facility] [address] [place] [address] Phone Care Team Providers Care Engineering Librarian Name Role Phone Lj Hua MD Primary Care Provider Lin Schuster MD Unavailable Lj Hua MD Unavailable [phone] James Fair MD Unavailable Marina Reid MD Unavailable [phone] Wilmer Cavazos MD Unavailable [phone] Vicenta MahmoodSW Unavailable [email or web address] Stephanie Aceves RN Unavailable [email or web address] Monica Bryson Unavailable matt Brynn Luciano RN Unavailable Encounter Details Date Type Department Care Team (Latest Contact Info) Description 08/11/2023 Transcribe Orders [facility] Phleb Nu [address] [phone] Rosa Cali CNP 10 [place], [place] [address] [email or web address] Crohn's disease of colon with complication (Primary Dx) Social History Tobacco [...] Description 09/06/2025 3:00 PM EST Nurse Only [address] [address] Lj Hua MD [address] [place] [address], [address] [place] [address] [email or web address] 09/08/2025 2:45 PM EST Procedure visit [facility] Gastroenterology Clinic 10 [place] [address] Patricia Roy, QUAN [address] [address] [email or web address] 09/09/2025 Procedure Pass [facility] CRP ENDO DEPT [address] [address] 09/09/2025 9:00 AM EST Hospital Encounter [facility] CRP ENDO DEPT [address] [address] Luz Elena Infante MD [address] [place] [address] [email or web address] 09/09/2025 9:00 AM EST Anesthesia Event [facility] CRP ENDO DEPT [address] [address] Christi Saxena RN [email or web address] 09/09/2025 9:00 AM EST - 09/09/2025 10:00 AM EST Surgery [facility] CRP ENDO DEPT [address] [address] Luz Elena Infante MD [address] [place] [address] [email or web address] [email or web address] 09/20/2025 3:00 PM EST Office Visit [address] [place] [address] Lj Hua MD [address] [place] [address], [address] [place] [address] [email or web address] 11/04/2025 4:00 PM EST Office Visit [facility] Rheumatology [address] [place] [address] [place] [address] Coral Crews MD [address] [place] [address], [address] [place] [address] [email or web address] Scheduled Procedures Name Priority Associated Diagnoses Date/Ti la COLONOSCOPY 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 with other complication 09/09/2025 9:00 AM EST documented as of this encounter Results * (ABNORMAL) Calprotectin, stool (08/22/2023 12:00 PM EST) STOOL CALPROTECTIN 367(H) mcg/g [facility]/[place] Comment: (NOTE) Reference Range: <50 Normal 50-120 Borderline >120 Elevated Calprotectin in Crohn's disease and ulcerative colitis can be five to several thousand times above the reference population (50 mcg/g or less). Levels are usually 50 mcg/g or less in healthy patients and with irritable bowel syndrome. Repeat testing in 4-6 weeks is suggested for borderline values. Stool (Stool) 08/22/2023 12: 00 PM EST 08/22/2023 3:47 PM EST us Rosa Cali CNP LAB BODY FLUIDS AND STOOL ORDERABLES Final Result [facility] [address] [place] [address], [facility] [phone] * (ABNORMAL) CBC and differential (08/11/2023 3:12 PM EST) WBC 15.53(H) 4.00 - 11.00 K/uL [facility] RBC 3.69(L) 3.90 - 5.69 M/uL [facility] HGB 11.4(L) 12.4 - 17.3 g/dL [facility] HCT 36.9(L) 37.0 - 51.0 % [facility] PLT 265 140 - 430 K/uL [facility] MCV 100.0(H) 78.0 - 97.0 fL [facility] MCH 30.9 25.0 - 33.0 pg [facility] MCHC 30.9(L) 32.0 - 36.0 g/dL [facility] RDW 17.1(H) 11.0 - 15.0 % [facility] MPV 9.5 8.4 - 12.8 fl [facility] DIFF METHOD Auto [facility] NEUTS 87.0(H) 43.0 - 75.0 % [facility] LYMPHS 5.0(L) 18.2 - 47.4 % [facility] MONOS 5.5 4.00 - 11.00 % [facility] EOS 1.2 0.0 - 8.0 % [facility] BASOS 0.4 0.0 - 2.0 % [facility] Granulocytes, immature (%) 0.9 0.0 - 0.9 % [facility] ABSOLUTE NEUTS 13.50(H) 1.80 - 7.70 K/uL [facility] ABSOLUTE LYMPHS 0.78(L) 1.00 - 3.10 K/uL [facility] ABSOLUTE MONOS 0.86(H) 0.20 - 0.80 K/uL [facility] ABSOLUTE EOS 0.19 0.00 - 0.80 K/uL [facility] ABSOLUTE BASOS 0.06 0.00 - 0.09 K/uL [facility] Granulocytes, immature 0.14(H) 0.00 - 0.05 K/uL [facility] Blood 08/11/2023 3:1 2 PM EST 08/11/2023 3:16 PM EST us Rosa Mack Viraj [facility] LAB BLOOD BKR ORDERABLES F inal Result Performing Organization Address City/State/[facility] Co de Phone Number [facility] [address] [place] [address] documented in this encounter Visit Diagnoses Diagnosis Crohn's disease of colon with complication- Primary Crohn's disease of large [...] documented as of this encounter Care Teams Engineering Librarian Relationship Specialty Start Date End Date Lj Hua MD [address] [place] [address], [address] [place] [address] PCP - General Internal Medicine 12/29/17 Lin Schuster MD [address] [place] [address], [address] [place] [address] Surgeon Urology 08/10/19 Lj Hua MD [address] [place] [address], [address] [place] [address] Insurance Assigned Provider 01/10/24 James Fair MD [address] [facility] [address] [place] [address] [email or web address] Internal Medicine 11/13/20 Marina Reid MD [address] [place] [address] [place] [address] [email or web address] Medical Oncology 11/21/20 Wilmer Cavazos MD [address] [place] [address] 11[address] [place] [address] [email or web address]. U Urology 11/28/20 Vicenta Mahmood, DRESSMAKER GARMENT FITTER[address] [place] [address] [email or web address] Lock Tender Oncology 01/04/21 Stephanie Purvis, SOWMYA [address] [place] [address], [facility] [address] [place] [address] [email or web address] PHCM Panel Edge Painter 02/24/23 06/08/25 Monica Bryson [address] [place] [address] [email or web address] PHCM Community Maple Syrup Maker 05/31/24 05/31/24 Brynn Luciano RN [address] [place] [address] [email or web address] PHCM Panel Edge PainterMutton Puncher 06/09/25 06/29/25 documented as of this encounter Additional Source Comments The information contained in this document represents components of the legal health record. It is not the complete legal health record.[facility]
--- OUTSIDE RECORDS SUMMARY | 2025-09-03 18:42 | XMS_ITS | Encounter Summary ---
Author Organization [facility] Address [address] [facility] [address] [place] [address] Phone Care Team Providers Care Certified Phlebotomist Name Role Phone Lj Hua MD Primary Care Provider Lin Schuster MD Unavailable Lj Hua MD Unavailable [phone] James Fair MD Unavailable Marina Reid MD Unavailable [phone] Wilmer Cavazos MD Unavailable [phone] Vicenta MahmoodSW Unavailable [email or web address]. Stephanie Aceves RN Unavailable [email or web address] Monica Bryson Unavailable [email or web address] Brynn Luciano RN Unavailable [phone] Encounter Details Date Type Department Care Team (Late st Contact Info) Description 03/23/2020 Procedure Pass [facility], Ct Scan - [address] [id number] Social History Tobacco Use Types Packs/Day Years [...] Description 09/06/2025 3:00 PM EST Nurse Only [address] [place] [address] Lj Hua MD 22 [facility], [address] [place] [address] [email or web address] 09/08/2025 2:45 PM EST Procedure visit [facility] Gastroenterology Clinic 10 [place] [address] Patricia Roy, QUAN [address] [address] [email or web address] 09/09/2025 Procedure Pass [facility] CRP ENDO DEPT [address] [address] 09/09/2025 9:00 AM EST Hospital Encounter [facility] CRP ENDO DEPT [address] [address] Luz Elena Infante MD [address] [place] [address] [email or web address] 09/09/2025 9:00 AM EST Anesthesia Event [facility] CRP ENDO DEPT [address] [address] Christi Saxena RN [email or web address] 09/09/2025 9:00 AM EST - 09/09/2025 10:00 AM EST Surgery [facility] CRP ENDO DEPT [address] [address] Luz Elena Infante MD [address] [place] [address] [email or web address] COLONOSCOPY 09/20/2025 3:00 PM EST Office Visit [facility] Medicine [address] [place] [address] Lj Hua MD 22 [facility], [address] [place] [address] 11/04/2025 4:00 PM EST Office Visit [facility] Rheumatology [address] [place] [address] Coral Crews MD [address] [place] [address], [address] [place] [address] [email or web address] Scheduled Procedures Name Priority [...] documented as of this encounter Care Teams Certified Phlebotomist Relationship Specialty Start Date End Date Lj Hua MD [address] [place] [address], [address] [place] [address] [email or web address] PCP - General Internal Medicine 12/29/17 Lin Schuster MD [address] [place] [address], [address] [place] [address] [email or web address] Surgeon Urology 08/10/19 Lj Hua MD [address] [place] [address], [address] [place] [address] [email or web address] Insurance Assigned Provider 01/10/24 James Fair MD [address] [place] [address] [address] [place] [address] [email or web address] Internal Medicine 11/13/20 Marina Reid MD [address] [place] [address] [place] [address] [email or web address] Medical Oncology 11/21/20 Wilmer Cavazos MD [address] [place] [address] [email or web address]. U Urology 11/28/20 Vicenta Mahmood, [address] [place], [place] [email or web address] Anvil Seating Press Operator Oncology 01/04/21 Stephanie Purvis, SOWMYA [address] [place] [address] [email or web address] PHCM Meter Installer And Remover 02/24/23 06/08/25 Monica Bryson 10 [place] [address] [email or web address] PHC Community Parts Department Supervisor 05/31/24 05/31/24 Brynn Luciano, SOWMYA [address] [place] [address] [email or web address] PHCM Meter Installer And RemoverMortgage Sales Manager 06/09/25 06/29/25 documented as of this encounter Additional Source Comments The information contained in this document represents components of the legal health record. It is not the complete legal health record.[facility]
--- OUTSIDE RECORDS SUMMARY | 2025-09-03 18:42 | XMS_ITS | Encounter Summary ---
Author Organization [facility] Address [address] [facility] [address] [place] [address] Phone Care Team Providers Care Seed Buyer Name Role Phone Guevara Lundy MD Primary Care Provider Lj Hua MD Primary Care Provider Lin Schuster MD Unavailable Lj Hua MD Unavailable [phone] James Fair MD Unavailable Marina Reid MD Unavailable [phone] Wilmer Cavazos MD Unavailable [phone] Vicenta MahmoodSW Unavailable [email or web address] Stephanie Aceves RN Unavailable [email or web address] Monica Bryson Unavailable matt Brynn Luciano RN Unavailable [phone] Encounter Details Date Type Department Care Team (Latest Contact Info) Description 11/06/2017 Transcribe Orders [facility] Phleb Nu [address] [place] [address] Hernan Mishra MD [address] [address] 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 with complication (Primary Dx) Social History Tobacco Use Types Packs/Day Years Used Date Smoking Tobacco: Never Assessed Sex and Gender Information Value Date Recorded Sex Assigned at Male 06/23/2019 5:39 AM EDT Legal Sex Male 9:48 PM EDT Gender Identity Male 06/23/2019 5:39 AM EDT Sexual Orientation Straight 06/23/2019 5 :39 AM EDT documented as of this encounter Plan of Treatment Upcoming Encounters Date Type Department Care Team (Latest Contact Info) Description 09/06/2025 3:00 PM EST Nurse Only [address] [address] Lj Hua MD 22 [facility], [address] [place] [address] [email or web address] 09/08/2025 2:45 PM EST Procedure visit [facility] Gastroenterology Clinic 10 [place] [address] Patricia Roy, MOBILE UI DESIGNER [address] [address] [email or web address] 09/09/2025 Procedure Pass [facility] CRP ENDO DEPT [address] [address] 09/09/2025 9:00 AM EST Hospital Encounter [facility] CRP ENDO DEPT [address] [address] Luz Elena Infante MD [address] [place] [address] [email or web address] 09/09/2025 9:00 AM EST Anesthesia Event [facility] CRP ENDO DEPT [address] [address] Christi Saxena RN [email or web address] 09/09/2025 9:00 AM EST - 09/09/2025 10:00 AM EST Surgery [facility] CRP ENDO DEPT [address] [place] [address] Luz Elena Infante MD [address] [place] [address] [email or web address] COLONOSCOPY 09/20/2025 3:00 PM EST Office Visit [facility] Family Medicine [address] [place] [address] Lj Hua MD 22 [facility], [address] [place] [address] [email or web address] 11/04/2025 4:00 PM EST Office Visit [facility] Rheumatology [address] [place] [address] Coral Crews MD [address] [place] [address], [address] [place] [address] [email or web address] Scheduled Procedures Name Priority Associated Diagnoses Date/Ti me COLONOSCOPY 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 with other complication 09/09/2025 9:00 AM EST documented as of this encounter Results * (ABNORMAL) C-Reactive Protein (11/06/2017 2:08 PM EST) Pathologist [facility] C REACTIVE PROTEIN 3.4(H) 0 - 0.5 mg/L [facility] Blood 11/06/2017 2:08 PM EST 11/06/2017 2:25 PM EST us Hernan Mishra MD LAB BLOOD BKR ORDERABLES F inal Result [facility] 30 [place] [address] * (ABNORMAL) Comprehensive metabolic panel (11/06/2017 2:08 PM EST) Pathologist [facility] SODIUM 142 133 - 146 mmol/L [facility] POTASSIUM 4.3 3.3 - 5.1 mmol/L [facility] CHLORIDE 104 96 - 108 mmol/L [facility] CO2 28 21 - 35 mmol/L [facility] BUN 14 6 - 19 mg/dL [facility] CREATININE 0.80 0.5 - 1.5 mg/dL [facility] GLUCOSE 99 70 - 99 mg/dL [facility] ALBUMIN 3.7(L) 3.9 - 4.8 g/dL [facility] TOTAL PROTEIN 7.6 6.5 - 8.0 g/dL [facility] CALCIUM 8.9 8.4 - 10.3 mg/dL [facility] ALKALINE PHOSPHATASE 66 39 - 117 U/L [facility] TOTAL BILIRUBIN 0.2 0 - 1.2 mg/dL [facility] AST 20 0 - 37 U/L [facility] ALT 9 0 - 40 U/L [facility] GLOBULIN 3.9 1 - 4.8 g/dL [facility] EGFR >60 60 - 1000 mL/min/1.7 3m2 [facility] Comment:Abnormal if <60. If patient is -Omani, multiply the result by 1.21. ANION GAP 14 10 - 20 mmol/L [facility] Blood 11/06/2017 2:08 PM EST 11/06/2017 2:25 PM EST us Hernan Mishra MD LAB BLOOD BKR ORDERABLES F inal Result [address] [id number] * (ABNORMAL) CBC (11/06/2017 2:08 PM EST) WBC 10.72 3.40 - 11.20 K/uL [facility] RBC 4.21(L) 4.50 - 5.50 M/uL [facility] HGB 11.1(L) 13.0 - 17.0 g/dL [facility] HCT 36.4(L) 40.0 - 51.0 % [facility] PLT 296 130 - 400 K/uL [facility] MCV 86.5 79.0 - 98.0 fL [facility] MCH 26.4(L) 27.0 - 34.8 pg [facility] MCHC 30.5(L) 31.5 - 36.0 g/dL [facility] RDW 17.2(H) 10.8 - 14.6 % [facility] MPV 9.9 9.4 - 12.4 fl [facility] NRBC 0.00 /100 WBCs [facility] ABSOLUTE NRBC 0.00 K/uL [facility] Blood 11/06/2017 2:08 PM EST 11/06/2017 2:25 PM EST us Hernan Mishra MD LAB BLOOD BKR ORDERABLES F inal Result Performing Organization Address City/State/[facility] Co de Phone Number [facility] [address] [place] [address] documented in this encounter Visit Diagnoses Diagnosis [...] documented as of this encounter Care Teams Seed Buyer Relationship Specialty Start Date End Date Guevara Lundy MD [address] [place] [address] [address] [place] [address] .[facility] PCP - General Internal Medicine 11/06/17 12/28/17 Lj Hua MD [address] [place] [address], [address] [place] [address] [email or web address] PCP - General Internal Medicine 12/29/17 Lin Schuster MD [address] [place] [address], [address] [place] [address] [email or web address] Surgeon Urology 08/10/19 Lj Hua MD [address] [place] [address], [address] [place] [address] Insurance Assigned Provider 01/10/24 James Fair MD [address] [place] [address] [address] [place] [address] [email or web address] Internal Medicine 11/13/20 Marina Reid MD [address] [place] [address] 12[address] [place] [address] [email or web address] Medical Oncology 11/21/20 Wilmer Cavazos MD [address] [place] [address] [address] [place] [address] [email or web address]. U Urology 11/28/20 Vicenta Mahmood, SENIOR ACCOUNTING ASSOCIATE [facility], [facility] [address] [place] [address] [email or web address] Shift Production Supervisor Oncology 01/04/21 Stephanie Purvis, RN [address] [place] [address], [facility] [address] [place] [address] . [facility] PHCM Autobody Technician 02/24/23 06/08/25 Monica Bryson [address] [place] [address] [email or web address] PHCM Community Airline Captain 05/31/24 05/31/24 Brynn Luciano, RN [address] [place] [phone] [email or web address] PHCM Autobody TechnicianFront Office Clerk 06/09/25 06/29/25 documented as of this encounter Additional Source Comments The information contained in this document represents components of the legal health record. It is not the complete legal health record.[facility]
--- OUTSIDE RECORDS SUMMARY | 2025-09-03 18:42 | XMS_ITS | Encounter Summary ---
Author Organization [facility] Address [address] [facility] [address] [place] [address] Phone Care Team Providers Care Carbon Blocks Press Operator Name Role Phone Lj Hua MD Primary Care Provider Lin Scuhster MD Unavailable Lj Hua MD Unavailable [phone] James Fair MD Unavailable Marina Reid MD Unavailable [phone] Wilmer Cavazos MD Unavailable [phone] Vicenta MahmoodSW Unavailable [email or web address] Stephanie Aceves RN Unavailable [email or web address] Brynn Luciano RN Unavailable [phone] Encounter Details Date Type Department Care Team (Latest Contact Info) Description 01/24/2025 Transcribe Orders [facility] Phleb Nu [address] [address] Ivette Jimenez PA 10 [place], [place] [id number] 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 with complication [...] with a working camera? Not on file Intimate Partner Violence Answer Date R ecorded Are you denied basic needs s uch as food, clothing, or medical care? No 08/12/2024 In the past 12 months have y ou been in a relationship with a person who hurts, threatens, or tries to control you? No 08/12/2024 Are you denied basic needs s uch as food, clothing, or medical care? No 08/12/2024 In the past 12 months have y ou been in a relationship with a person who hurts, threatens, or tries to control you? No 08/12/2024 Sex and Gender Information Value Date Recorded Sex Assigned at Male 06/23/2019 5:39 AM EDT Legal Sex Male 9:48 PM EDT Gender Identity Male 06/23/2019 5:39 AM EDT Sexual Orientation Straight 06/23/2019 5: 39 AM EDT documented as of this encounter Plan of Treatment Upcoming Encounters Date Type Department Care Team (Latest Contact Info) Description 09/06/2025 3:00 PM EST [facility] Medicine [address] [place] [address] [place] [address] Lj Hua MD [address] [place] [address], [address] [place] [address] 09/08/2025 2:45 PM EST Procedure visit [facility] Gastroenterology Clinic 10 [place] [address] Patricia Roy, QUAN [address] [address] [email or web address] 09/09/2025 Procedure Pass [facility] CRP ENDO DEPT [address] [address] 09/09/2025 9:00 AM EST Hospital Encounter [facility] CRP ENDO DEPT [address] [address] Luz Elena Infante MD [address] [place] [address] [email or web address] 09/09/2025 9:00 AM EST Anesthesia Event [facility] CRP ENDO DEPT [address] [address] Christi Saxena RN [email or web address] 09/09/2025 9:00 AM EST - 09/09/2025 10:00 AM EST Surgery [facility] CRP ENDO DEPT [address] [address] Luz Elena Infante MD [address] [place] [address] [email or web address] COLONOSCOPY 09/20/2025 3:00 PM EST Office Visit [address] [place] [address] Lj Hua MD [address] [place] [address], [address] [place] [address] [email or web address] 11/04/2025 4:00 PM EST Office Visit [facility] Rheumatology [address] [place] [address] [place] [address] Coral Crews MD [address] [place] [address], [address] [place] [address] [email or web address] Scheduled Procedures Name Priority Associated Diagnoses Date/Ti mt COLONOSCOPY 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 with other complication 09/09/2025 9:00 AM EST documented as of this encounter Results * (ABNORMAL) C-Reactive Protein (01/24/2025 11:44 AM EDT) C REACTIVE PROTEIN 33.1(H) 0.0 - 4.0 mg/L [facility] Blood 01/24/2025 11:4 4 AM EDT 01/24/2025 11:48 AM EDT us Ivette ORDOÑEZ LAB BLOOD BKR ORDERABLES Fi nal Result [facility] [address] [place], [place] [id number] * (ABNORMAL) Comprehensive metabolic panel (01/24/2025 11:44 AM EDT) SODIUM 141 133 - 146 mmol/L [facility] POTASSIUM 4.7 3.3 - 5.1 mmol/L [facility] CHLORIDE 108 96 - 108 mmol/L [facility] CO2 24 21 - 35 mmol/L [facility] BUN 23(H) 6 - 19 mg/dL [facility] CREATININE 1.00 0.5 - 1.5 mg/dL [facility] GLUCOSE 113(H) 70 - 99 mg/dL [facility] ALBUMIN 3.8(L) 3.9 - 4.8 g/dL [facility] TOTAL PROTEIN 7.0 6.5 - 8.0 g/dL [facility] CALCIUM 8.8 8.4 - 10.3 mg/dL [facility] ALKALINE PHOSPHATASE 59 39 - 117 U/L [facility] TOTAL BILIRUBIN <0.2 0.0 - 1.2 mg/dL [facility] AST 18 0 - 37 U/L [facility] ALT 6 0 - 40 U/L [facility] GLOBULIN 3.2 1 - 4.8 g/dL [facility] EGFR 84 >59 mL/min/1.7 3m2 [facility] Comment:Estimated glomerular filtration rate calculated using the CKD-EPI refit equation. ANION GAP 14 10 - 20 mmol/L [facility] Blood 01/24/2025 11:4 4 AM EDT 01/24/2025 11:48 AM EDT us Ivette ORDOÑEZ LAB BLOOD BKR ORDERABLES Fi nal Result [facility] [address] [place] [address] documented in this encounter Visit Diagnoses Diagnosis 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 with complication- Primary 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 with other complication documented in this encounter Additional Health Concerns Infection Onset Date Last Indicated Resolved Time CDiff-Risk 08/17/2025 08/20/2025 08/20/2025 2:05 PM EST Assessment Noted Time PHQ-2 Depression Total Score: 2 03/28/20 23 1:26 PM EDT documented as of this encounter Care Teams Carbon Blocks Press Operator Relationship Specialty Start Date End Date Lj Hua MD [address] [place] [address], [address] [place] [address] [email or web address] PCP - General Internal Medicine 12/29/17 Lin Schuster MD [address] [place] [address], [address] [place] [address] Surgeon Urology 08/10/19 Lj Hua MD [address] [place] [address], [address] [place] [address] [email or web address] Insurance Assigned Provider 01/10/24 James Fair MD [address] [place] [address] [place] [address] [email or web address] Internal Medicine 11/13/20 Marina Reid MD [address] [place] [address] [place] [address] [email or web address] Medical Oncology 11/21/20 Wilmer Cavazos MD [address] [place] [address] [email or web address] 11/28/20 Vicenta Mahmood, WIDE AREA NETWORK ENGINEER[address] [address] [email or web address] Research Manager Oncology 01/04/21 Stephanie Purvis RN [address] [place] [address] [email or web address] medical center, [email or web address]. [facility] PHCM Hazard Waste Handler 02/24/23 06/08/25 Brynn Luciano, RN [address] [place] [address] [email or web address] PHC Hazard Waste HandlerChief Information Security Officer 06/09/25 06/29/25 documented as of this encounter Additional Source Comments The information contained in this document represents components of the legal health record. It is not the complete legal health record.[facility]
--- OUTSIDE RECORDS SUMMARY | 2025-09-03 18:42 | XMS_ITS | Encounter Summary ---
Author Organization [facility] Address [address] [facility] [address] [place] [address] Phone Care Team Providers Care Manager Special Events Name Role Phone Lj Hua MD Primary Care Provider [phone] Lin Schuster MD Unavailable [phone] Lj Hua MD Unavailable [phone] James Fair MD Unavailable Marina Reid MD Unavailable [phone] Wilmer Cavazos MD Unavailable [phone] Vicenta MahmoodSW Unavailable [email or web address]. Stephanie Aceves RN Unavailable [email or web address] Monica Bryson Unavailable matt Brynn Luciano RN Unavailable [phone] Reason for Referral * Outpatient Procedure - Closed Specialty Diagnoses / Procedures Referred By Contac t Referred To Contact Radiology Diagnoses Cancer of prostate Procedures NM Bone Scan Whole Body Lin Schuster MD Phone: tel: fax: [email or web address] Referral ID Status Reason Start Date Expiration Date Visits Re quested Visits Authorized [id number] Closed 07/23/2018 07/23/2019 1 2 Encounter Details Date Type Department Care Team (Late st Contact Info) Description 07/23/2018 Ancillary Orders Virtual Department 30 [place] [address] Lin Schuster MD 10 [facility] 3 [place] [address] [email or web address] Cancer of prostate Social History Tobacco Use Types Packs/Day Years [...] Description 09/06/2025 3:00 PM EST Nurse Only [address] [address] Lj Hua MD [address] [place] [address], [address] [place] [address] 09/08/2025 2:45 PM EST Procedure visit [facility] 10 [place] [address] Patricia Roy, QUAN 10 [facility] 2 [place] [address] [email or web address] 09/09/2025 Procedure Pass [facility] CRP ENDO DEPT [address] [address] 09/09/2025 9:00 AM EST Hospital Encounter [facility] CRP ENDO DEPT [address] [address] Luz Elena Infante MD [address] [place] [address] [email or web address] 09/09/2025 9:00 AM EST Anesthesia Event [facility] CRP ENDO DEPT [address] [address] Christi Saexna RN [email or web address] 09/09/2025 9:00 AM EST - 09/09/2025 10:00 AM EST Surgery [facility] CRP ENDO DEPT [address] [address] Luz Elena Infante MD [address] [place] [address] [email or web address] COLONOSCOPY 09/20/2025 3:00 PM EST Office Visit [facility] Medicine [address] [place] [address] [place] [address] Lj Hua MD [address] [place] [address], [address] [place] [address] [email or web address] 11/04/2025 4:00 PM EST Office Visit [facility] Rheumatology [address] [place] [address] [place] [address] Coral Crews MD [address] [place] [address], [address] [place] [address] [email or web address] Scheduled Procedures Name Priority Associated Diagnoses Date/Ti id COLONOSCOPY 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 with other complication 09/09/2025 9:00 AM EST documented as of this encounter Results * NM Bone Scan Whole Body (08/14/2018 3:04 PM EST) Anatomical Region Laterality Modality Shoulder Right, Shoulder Lef t, Arm Left, Arm Right, Elbow Left, Elbow Right, Forearm Left, Forearm Right, Wrist Right, Wrist Left, Hand Left, Hand Right, Hip Left, Hip Right, Hip Bilateral, Thigh Left, Thigh Right, Knee Left, Knee Right, Knee Bilateral, Leg Left, Leg Right, Ankle Left, Ankle Right, Foot Left, Foot Right, Pelvis Nucle ar Medicine 08/14/2018 3:04 PM EST Impressions 08/14/2018 3:07 PM EST No findings of bony metastatic disease are seen. S/S: Prostate carcinoma POS - [id number] Narrative 08/14/2018 3:07 PM EST DOSE: 22 mCi Tc-99m labeled MDP COMPARISON: CT abdomen and pelvis February 18, 2014 FINDINGS: Whole body imaging is obtained. There are 2 functioning kidneys. Activity is evident in both knees and in the left foot which is likely degenerative in nature. There is also increased activity related of the right maxillary sinus which I suspect is inflammatory. Minor activity at the lumbosacral junction is consistent with facet arthropathy on recent x-rays. There are no findings of bony metastatic disease identified. Procedure Note Davie Villatoro MD - 08/14/2018 DOSE: 22 mCi Tc-99m labeled MDP COMPARISON: CT abdomen and pelvis February 18, 2014 FINDINGS: Whole body imaging is obtained. There are 2 functioning kidneys. Activity is evident in both knees and in the left foot which is likelydegenerative in nature. There is also increased activity related of theright maxillary sinus which I suspect is inflammatory. Minor activity at the lumbosacral junction is consistent with facetarthropathy on recent x-rays. There are no findings of bony metastatic disease identified. IMPRESSION: No findings of bony metastatic disease are seen. S/S: Prostate carcinoma POS - [id number] Lin Schuster MD [facility] [place] BONE SCAN Final Res ult documented in this encounter Visit Diagnoses Diagnosis Cancer of prostate Malignant neoplasm of prostate Cancer of prostate Malignant neoplasm of prostate Crohn's disease of large [...] as of this encounter Care Teams Manager Special Events Relationship Specialty Start Date End Date Lj Hua MD [address] [place] [address], [address] [place] [address] [email or web address] PCP - General Internal Medicine 12/29/17 Lin Schuster MD [address] [place] [address], [address] [place] [address] Surgeon Urology 08/10/19 Lj Hua MD [address] [place] [address], [address] [place] [address] [email or web address] Insurance Assigned Provider 01/10/24 James Fair MD [address] [place] [address] [address] [place] [address] [email or web address] Internal Medicine 11/13/20 Marina Reid MD [address] [place] [address] [email or web address] Medical Oncology 11/21/20 Wilmer Cavazos MD [address] [place] [address] [email or web address]. U [email or web address] 11/28/20 Vicenta Mahmood [address] [address] [email or web address] Pharmacy Consultant Oncology 01/04/21 Stephanie Purvis RN [address] [place] [address] [email or web address] PHCM Extension Service Specialist In Charge 02/24/23 06/08/25 Monica Bryson [address] [place] [address] [email or web address] PHC Community Dictaphone Typist 05/31/24 05/31/24 Brynn Luciano, SOWMYA [address] [place] [address] [email or web address] PHCM Extension Service Specialist In ChargeLoom Fixer Helper 06/09/25 06/29/25 documented as of this encounter Additional Source Comments The information contained in this document represents components of the legal health record. It is not the complete legal health record.[facility]
--- OUTSIDE RECORDS SUMMARY | 2025-09-03 18:42 | XMS_ITS | Encounter Summary ---
Author Organization [facility] Address [address] [facility] [address] [place] [address] Phone Care Team Providers Care Military Pay Clerk Name Role Phone Lj Hua MD Primary Care Provider Lin Schuster MD Unavailable Lj Hua MD Unavailable [phone] James Fair MD Unavailable Marina Reid MD Unavailable [phone] Wilmer Cavazos MD Unavailable [phone] Vicenta MahmoodSW Unavailable [email or web address] Stephanie Aceves RN Unavailable [email or web address] Monica Bryson Unavailable matt Brynn Luciano RN Unavailable [phone] Encounter Details Date Type Department Care Team (Late st Contact Info) Description 06/27/2022 Procedure Pass [facility] 30 [place], [place] [id number] Social History Tobacco Use Types Packs/Day Years [...] 09/06/2025 3:00 PM EST Nurse Only [place] [address] [place] [address] Lj Hua MD 22 [facility], [address] [place] [address] [email or web address] 09/08/2025 2:45 PM EST Procedure visit [facility] G[facility] 10 [place] [address] Patricia Roy, QUAN [address] [address] [email or web address] 09/09/2025 Procedure Pass [facility] CRP ENDO DEPT [address] [address] 09/09/2025 9:00 AM EST Hospital Encounter [facility] CRP ENDO DEPT [address] [address] Luz Elena Infante MD [address] [place] [address] [email or web address] 09/09/2025 9:00 AM EST Anesthesia Event [facility] CRP ENDO DEPT [address] [address] Christi Sax[place] RN [email or web address] 09/09/2025 9:00 AM EST - 09/09/2025 10:00 AM EST Surgery [facility] CRP ENDO DEPT [address] [address] Luz Elena Infante MD [address] [place] [address] [email or web address] COLONOSCOPY 09/20/2025 3:00 PM EST Office Visit [facility] Medicine [address] [place] [address] Lj Hua MD [address] [place] [address], [address] [place] [address] 11/04/2025 4:00 PM EST Office Visit [facility] Rheumatology [address] [place] [address] Coral Crews MD [address] [place] [address], [address] [place] [address] [email or web address] Scheduled Procedures Name Priority Associated Diagnoses [...] documented as of this encounter Care Teams Military Pay Clerk Relationship Specialty Start Date End Date Lj Hua MD [address] [place] [address], [address] [place] [address] [email or web address] PCP - General Internal Medicine 12/29/17 Lin Schuster MD [address] [place] [address], [address] [place] [address] [email or web address] Surgeon Urology 08/10/19 Lj Hua MD [address] [place] [address], [address] [place] [address] [email or web address] Insurance Assigned Provider 01/10/24 James Fair MD [address] [place] [address] [address] [place] [address] [email or web address] Internal Medicine 11/13/20 Marina Reid MD [address] [place] [address] [place] [address] [email or web address] Medical Oncology 11/21/20 Wilmer Cavazos MD [address] [place] [address] [email or web address]. U Urology 11/28/20 Vicenta Mahmood [address] [place], [place] [email or web address] Advanced Solutions Architect Oncology 01/04/21 Stephanie Purvis, SOWMYA [address] [place] [address] [email or web address] PHCM Capper Machine Operator 02/24/23 06/08/25 Monica Bryson [address] [place] [address] [email or web address] PHC Community Professor Of Visual Arts 05/31/24 05/31/24 Brynn Luciano RN [address] [place] [address] [email or web address] PHCM Capper Machine OperatorQuartz Miner Blasting 06/09/25 06/29/25 documented as of this encounter Additional Source Comments The information contained in this document represents components of the legal health record. It is not the complete legal health record.[facility]
--- OUTSIDE RECORDS SUMMARY | 2025-09-03 18:42 | XMS_ITS | Encounter Summary ---
Author Organization [facility] Address [address] [facility] [address] [place] [address] Phone Care Team Providers Care Radiology Transporter Name Role Phone Lj Hua MD Primary Care Provider Lin Schuster MD Unavailable [phone] Lj Hua MD Unavailable [phone] James Fair MD Unavailable Marina Reid MD Unavailable [phone] Wilmer Cavazos MD Unavailable [phone] Vicenta MahmoodSW Unavailable [email or web address]. Stephanie Aceves RN Unavailable [email or web address] Brynn Luciano RN Unavailable [phone] Encounter Details Date Type Department Care Team (Latest Contact Info) Description 11/29/2024 Transcribe Orders [facility]b Nu [address] [address] Patricia Roy NP 10 [place], [place] [id number] Diarrhea, unspecified type (Primary Dx) Social History Tobacco Use Types [...] Description 09/06/2025 3:00 PM EST Nurse Only [facility] Medicine [address] [place] [address] Lj Hua MD [address] [place] [address], [address] [place] [address] 09/08/2025 2:45 PM EST Procedure visit [facility] Gastroenterology Clinic 10 [place] [address] Patricia Roy, GAMB CUTTER [address] [address] [email or web address] 09/09/2025 Procedure Pass [facility] [place] [place] [address] [address] 09/09/2025 9:00 AM EST Hospital Encounter [facility]PT [address] [address] Luz Elena Infante MD [address] [place] [address] [email or web address] 09/09/2025 9:00 AM EST Anesthesia Event [facility] [place] [place] [address] [address] Christi [place] RN [email or web address] 09/09/2025 9:00 AM EST - 09/09/2025 10:00 AM EST Surgery [facility] DEPT [address] [address] Luz Elena Infante MD [address] [place] [address] [email or web address] COLONOSCOPY 09/20/2025 3:00 PM EST Office Visit [address] [place] [address] Lj Hua MD [address] [place] [address], [address] [place] [address] [email or web address] 11/04/2025 4:00 PM EST Office Visit [facility] Rheumatology [address] [place] [address] [place] [address] Coral Crews MD [address] [place] [address], [address] [place] [address] [email or web address] Scheduled Procedures Name Priority Associated Diagnoses Date/Ti ri COLONOSCOPY 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 with other complication 09/09/2025 9:00 AM EST documented as of this encounter Results * C. DIFFICILE PCR (01/19/2025 4:22 PM EDT) C.DIFFICILE PCR Negative Negative [facility] C.DIFFICILE STRAIN PRESUMPTIVE NEGATIVE PRESUMPTIVE NEGATIVE [facility] Comment:Detection of 027/NAP 1/BI strains of C.difficile is presumptive and is solely for epidemiological purposes and is not intended to guide or monitor treatment of infections. Stool (Stool) 01/19/2025 4:2 2 PM EDT 01/19/2025 4:23 PM EDT us Patricia Roy [facility] BODY FLUIDS AND STOOL ORDERABLES Final Result [facility] [address] [place] [address] documented in this encounter Visit Diagnoses Diagnosis Diarrhea, unspecified type- Primary 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 with [...] documented as of this encounter Care Teams Radiology Transporter Relationship Specialty Start Date End Date Lj Hua MD [address] [place] [address], [address] [place] [address] PCP - General Internal Medicine 12/29/17 Lin Schuster MD [address] [place] [address], [address] [place] [address] Surgeon Urology 08/10/19 Lj Hua MD 22 [facility], [address] [place] [address] [email or web address] Insurance Assigned Provider 01/10/24 James Fair MD [address] [facility] [address] [place] [address] [email or web address] Internal Medicine 11/13/20 Marnia Reid MD 450 [facility] [address]30 [place] [address] [email or web address] Medical Oncology 11/21/20 Wilmer Cavazos MD [address] [place] [address] [email or web address]. U Urology 11/28/20 Vicenta Mahmood [address] [address] [email or web address] Boiler Operator Oncology 01/04/21 Stephanie Purvis RN [address] [place] [address] [email or web address] PHCM Systems Requirements Planner 02/24/23 06/08/25 Brynn Luciano, RN [address] [place] [address] [email or web address] PHCM Systems Requirements PlannerRisk Consultant 06/09/25 06/29/25 documented as of this encounter Additional Source Comments The information contained in this document represents components of the legal health record. It is not the complete legal health record.[facility]
--- OUTSIDE RECORDS SUMMARY | 2025-09-03 18:42 | XMS_ITS | Encounter Summary ---
Author Organization [facility] Address [address] [facility] [address] [place] [address] Phone Care Team Providers Care General House Worker Name Role Phone Lj Hua MD Primary Care Provider [phone] Lin Schuster MD Unavailable Lj Hua MD Unavailable [phone] James Fair MD Unavailable Marina Reid MD Unavailable [phone] Wilmer Cavazos MD Unavailable [phone] Vicenta MahmoodSW Unavailable [email or web address] Aceves RN Unavailable [email or web address] Monica Bryson Unavailable matt Brynn Luciano RN Unavailable [phone] Reason for Referral * MRI/CAT Scan - Closed Specialty Diagnoses / Procedures Referred By Asiya roca Referred To Contact Radiology Diagnoses Abdominal pain, unspecified abdominal location Gastric distention Weight loss Procedures CT Abdomen/Pelvis Hernan Mishra MD Phone: tel: fax: [email or web address] Referral ID Status Reason Start Date Expiration Date Visits Re quested Visits Authorized [id number] Closed 03/22/2020 09/18/2020 1 1 Encounter Details Date Type Department Care Team (Late st Contact Info) Description 03/23/2020 Ancillary Orders Virtual Department [address] [place] [address] Hernan Mishra MD [address] [address] Abdominal pain, unspecified abdominal location; Gastric distention; Weight loss Social History Tobacco Use Types Packs/Day Years [...] Description 09/06/2025 3:00 PM EST Nurse Only [address] [address] Lj Hua MD [address] [place] [address], [address] [place] [address] 09/08/2025 2:45 PM EST Procedure visit [facility] [address] [place] [address] Patricia Roy, QUAN [address] [address] [email or web address] 09/09/2025 Procedure Pass [facility] CRP ENDO DEPT [address] [facility] [address] [place] [address] 09/09/2025 9:00 AM EST Hospital Encounter [facility] CRP ENDO DEPT [address] [address] Luz Elena Infante MD [address] [place] [address] [email or web address] 09/09/2025 9:00 AM EST Anesthesia Event [facility] CRP ENDO DEPT [address] [address] Christi Saxena RN [email or web address] 09/09/2025 9:00 AM EST - 09/09/2025 10:00 AM EST Surgery [facility] CRP ENDO DEPT [address] [address] Luz Elena Infante MD [address] [place] [address] [email or web address] COLONOSCOPY 09/20/2025 3:00 PM EST Office Visit [address] [address] Lj Hua MD [address] [place] [address], [address] [place] [address] [email or web address] 11/04/2025 4:00 PM EST Office Visit [facility] Rheumatology [address] [place] [address] [place] [address] Coral Crews MD [address] [place] [address], [address] [place] [address] [email or web address] Scheduled Procedures Name Priority Associated Diagnoses Date/Ti ma COLONOSCOPY 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 with other complication 09/09/2025 9:00 AM EST documented as of this encounter Results * CT ABDOMEN/PELVIS WITH CONTRAST (03/23/2020 2:02 PM EDT) Anatomical Region Laterality Modality Abdomen, Pelvis Computed Tomogra phy 03/23/2020 2:09 PM EDT Impressions 03/23/2020 2:16 PM EDT No source the right lower quadrant pain. No active bowel inflammatory changes or signs of appendicitis. Nonobstructing bilateral nephrolithiasis again noted without ureteral calculi. Cholelithiasis without evidence of cholecystitis. Findings consistent with ankylosing spondylitis. TOTAL CTDIvol: 7.7 mGy POS - [id number] Narrative 03/23/2020 2:16 PM EDT HISTORY: Right lower quadrant pain. History of prostate cancer and Crohn's disease. White loss. COMPARISON: Unenhanced CT feb 18 2014 TECHNIQUE: After the administration of oral and intravenous contrast, multidetector CT is obtained from dome of the liver through the inferior pubic rami. Sagittal and coronal reformats generated. Automated exposure control utilized. FINDINGS: Lung bases: Some minor linear atelectatic changes in the lower lingula. No pleural or pericardial effusion. Liver and spleen: No findings of concern. Biliary tree and pancreas: There is cholelithiasis with a single prominent gallstone evident. No signs of cholecystitis. Pancreas unremarkable. Adrenals and : Multiple non-obstructing bilateral renal stones measuring up to 5 mm again noted. Exophytic left renal cysts is present since 2013. Very lobulated contour to the kidneys noted, possibly with some mild volume loss overall bilaterally since more remote studies. No adrenal masses or signs of obstruction. No ureteral calculi or bladder stones. Bladder unremarkable. Prostate not enlarged. Bowel: Stomach and duodenum unremarkable. Ileal and jejunal fold patterns unremarkable. Terminal ileum has some fatty change within the wall, consistent with prior inflammatory episodes but no active thickening. Appendix unremarkable. No evidence of colitis or diverticulitis. Nodes: No adenopathy detected. Vascular: No findings of concern. Soft tissues: No ascites, inflammatory change or fluid collection. No bowel-containing hernias. Bones: Bridging calcification multiple levels in the spine. Hemangioma suggested in L1. Pronounced multilevel lumbar facet arthropathy. Ankylosis of the SI joints. Pattern is consistent with ankylosing spondylitis. Old inferior pubic rami fractures suggested bilaterally. Procedure Note Iris Whitney MD - 03/23/2020 HISTORY: Right lower quadrant pain. History of prostate cancer and Crohn'sdisease. White loss. COMPARISON: Unenhanced CT feb 18 2014 TECHNIQUE: After the administration of oral and intravenous contrast,multidetector CT is obtained from dome of the liver through the inferiorpubic rami. Sagittal and coronal reformats generated. Automated exposurecontrol utilized. FINDINGS: Lung bases: Some minor linear atelectatic changes in the lower lingula. Nopleural or pericardial effusion. Liver and spleen: No findings of concern. Biliary tree and pancreas: There is cholelithiasis with a single prominentgallstone evident. No signs of cholecystitis. Pancreas unremarkable. Adrenals and : Multiple non-obstructing bilateral renal stones measuringup to 5 mm again noted. Exophytic left renal cysts is present since 2012.Very lobulated contour to the kidneys noted, possibly with some mildvolume loss overall bilaterally since more remote studies. No adrenalmasses or signs of obstruction. No ureteral calculi or bladder stones.Bladder unremarkable. Prostate not enlarged. Bowel: Stomach and duodenum unremarkable. Ileal and jejunal fold patternsunremarkable. Terminal ileum has some fatty change within the wall,consistent with prior inflammatory episodes but no active thickening.Appendix unremarkable. No evidence of colitis or diverticulitis. Nodes: No adenopathy detected. Vascular: No findings of concern. Soft tissues: No ascites, inflammatory change or fluid collection. Nobowel- containing hernias. Bones: Bridging calcification multiple levels in the spine. Hemangiomasuggested in L1. Pronounced multilevel lumbar facet arthropathy. Ankylosisof the SI joints. Pattern is consistent with ankylosing spondylitis. Oldinferior pubic rami fractures suggested bilaterally. IMPRESSION: No source the right lower quadrant pain. No active bowel inflammatorychanges or signs of appendicitis. Nonobstructing bilateral nephrolithiasisagain noted without ureteral calculi. Cholelithiasis without evidence ofcholecystitis. Findings consistent with ankylosing spondylitis. TOTAL CTDIvol: 7.7 mGy POS - [id number] Hernan Mishra MD IMG CT ABD/PELVIS Final Re sult documented in this encounter Visit Diagnoses Diagnosis Abdominal pain, unspecified abdominal location Gastric distention Acute dilatation of stomach Weight loss Loss of weight Abdominal pain, unspecified abdominal location Gastric distention Acute dilatation of stomach Weight loss Loss of weight 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 with other [...] documented as of this encounter Care Teams General House Worker Relationship Specialty Start Date End Date Lj Hua MD [address] [place] [address], [address] [address] [email or web address] PCP - General Internal Medicine 12/29/17 Lin Schuster MD [address] [place] [address], [address] [address] Surgeon Urology 08/10/19 Lj Hua MD [address] [place] [address], [address] [address] [email or web address] Insurance Assigned Provider 01/10/24 James Fair MD [address] [place] [address] [email or web address] Internal Medicine 11/13/20 Marina Reid MD [address] [place], [place] [email or web address] Medical Oncology 11/21/20 Wilmer Cavazos MD [address] [place] [address] [email or web address] [email or web address] 11/28/20 Vicenta aMhmood [address] [address] [email or web address] [email or web address] Spa Manager Oncology 01/04/21 Stephanie Purvis, SOWMYA [address] [place] [address] [email or web address] PHCM Library Clerk [employer]alking [employer] 02/24/23 06/08/25 Monica Bryson [address] [place] [address] [email or web address] PHCM Community Nursing Unit Clerk 05/31/24 05/31/24 Brynn Luciano, RN [address] [place] [address] PHCM Library Clerk Talking BooksCorn Cutter Operator 06/09/25 06/29/25 documented as of this encounter Additional Source Comments The information contained in this document represents components of the legal health record. It is not the complete legal health record.[facility]
--- OUTSIDE RECORDS SUMMARY | 2025-09-03 18:42 | XMS_ITS | Encounter Summary ---
Author Organization [facility] Address [address] [place] [address] Phone Care Team Providers Care Overlock Operator Name Role Phone Lj Hua MD Primary Care Provider Lin Schuster MD Unavailable Lj Hua MD Unavailable [phone] James Fair MD Unavailable Marina Reid MD Unavailable [phone] Wilmer Cavazos MD Unavailable [phone] Vicenta MahmoodSW Unavailable [email or web address] Encounter Details Date Type Department Care Team (Late st Contact Info) Description 08/20/2025 Lab Requisition [facility] Lab Main [address] [place] [address] Luz Elena Infante MD [address] [place] [phone] [email or web address] Social History Tobacco Use Types Packs/Day Years [...] 09/06/2025 3:00 PM EST Nurse Only Mcelroy [address] [address] Lj Hua MD [address] [place] [address], [address] [place] [address] 09/08/2025 2:45 PM EST Procedure visit [facility] 10 [place] [address] Patricia Roy, QUAN [address] [address] [email or web address] 09/09/2025 Procedure Pass [facility] CRP ENDO DEPT [address] [facility] 9th [place] [address] 09/09/2025 9:00 AM EST Hospital Encounter [facility] CRP ENDO DEPT [address] [address] Luz Elena Infante MD [address] [place] [address] [email or web address] 09/09/2025 9:00 AM EST Anesthesia Event [facility] CRP ENDO DEPT [address] [address] Christi Saxena RN [email or web address] 09/09/2025 9:00 AM EST - 09/09/2025 10:00 AM EST Surgery [facility] CRP ENDO DEPT [address] [address] Luz Elena Infante MD [address] [place] [address] [email or web address] COLONOSCOPY 09/20/2025 3:00 PM EST Office Visit [address] [place] [address] Lj Hua MD [address] [place] [address], [address] [place] [address] [email or web address] 11/04/2025 4:00 PM EST Office Visit [facility] [address] [place] [address] [place] [address] Coral Crews MD [address] [place] [address], [address] [place] [address] [email or web address] [email or web address] Results Name Type Priority Associated Diagnoses Date /Time Calprotectin, Stool Lab Today 08/20 12:51 PM EST Scheduled Procedures Name Priority Associated Diagnoses Date/Ti me COLONOSCOPY 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 with other complication 09/09/2025 9:00 AM EST documented as of this encounter Procedures Procedure Name Priority Date/Time Associated Diagnosis Comments PARASITE IDENTIFICATION (OVA AND PARASITES), TRAVEL HISTORY OR IMMUNOCOMPROMISED STOOL Today 08/20/2025 12:51 PM EST documented in this encounter Results * Parasite Identification (Ova and Parasites), Travel History or Immunocompromised Stool (08/20/2025 12:51 PM EST) Ova and Parasite, Microscopy, F SEE COMMENTS 08/26/2025 8:[address] [facility] Comment: SOURCE: STOOL, STLP OVA AND PARASITE, MICROSCOPY, F FINAL No parasites seen. Cryptosporidium, Cyclospora, and microsporidia are not readily detected by this method. Single negative specimen does not rule out parasitic infection. Stool (Per Rectum) 08/20/2025 12:51 PM EST 08/20/2025 4:40 PM EST Luz Elena Infante MD LAB BODY FLUIDS AND STOOL ORDERABLES Final Result [facility] (BEAKER) [address] [address] [phone] documented in this encounter Visit Diagnoses Not on filedocumented in this encounter Additional Health Concerns Infection Onset Date Last Indicated Resolved Time CDiff-Risk 08/17/2025 08/20/2025 08/20/2025 2:05 PM EST Assessment Noted Time PHQ-2 Depression Total Score: 2 03/28/20 23 1:26 PM EDT documented as of this encounter Care Teams Overlock Operator Relationship Specialty Start Date End Date Lj Hua MD [address] [place] [address], [address] [place] [address] PCP - General Internal Medicine 12/29/17 Lin Schuster MD [address] [place] [address], [address] [place] [address] Surgeon Urology 08/10/19 Lj Hua MD [address] [place] [address], [address] [place] [address] [email or web address] Insurance Assigned Provider 01/10/24 James Fair MD [address] [facility] [address] [place] [address] [email or web address] Internal Medicine 11/13/20 Marina Reid MD [address] [facility] [address] [place] [address] [email or web address] Medical Oncology 11/21/20 Wilmer Cavazos MD [address] [place] [address] [email or web address] Urology 11/28/20 Vicenta Mahmood, [address] [address] [email or web address] Oncology 01/04/21 documented as of this encounter Additional Source Comments The information contained in this document represents components of the legal health record. It is not the complete legal health record.[facility]
--- OUTSIDE RECORDS SUMMARY | 2025-09-03 18:42 | XMS_ITS | Clinical Summary ---
Author Organization [facility] Address [address] [facility] [address] [place] [id number] Phone Care Team Providers Care Customer Engagement Analyst Name Role Phone Caitlyn Hua MD Primary Care Provider Lin Schuster MD Unavailable Caitlyn Hua MD Unavailable [phone] James Fair MD Unavailable Marina Reid MD Unavailable [phone] Wilmer Cavazos MD Unavailable [phone] Vicenta MahmoodSW Unavailable [email or web address] Allergies Active Allergy Reactions Criticality Noted Date Comments Diphenhydramine Hcl Musculoskeletal Pain Medium 2021 Penicillins Hives Medium 12/29/2017 Medications sulfaSALAzine (AZULFIDINE) 500 mg tablet Take 500 mg by mouth 2 (two) times a day. Active potassium citrate (UROCIT-K) 10 mEq SR tablet Take 10 mEq by mouth daily. Active allopurinol (ZYLOPRIM) 100 MG tablet Take 100 mg by mouth daily. Active famotidine (PEPCID) 20 MG tablet Take 20 mg by mouth daily. Active cholecalciferol (VITAMIN D3) 2,000 unit tablet Take 2,000 Units by mouth daily. Active acetaminophen (TYLENOL) 500 MG tablet Take 1,000 mg by mouth every 6 (six) hours as needed for pain (specific location in comments). Active cyanocobalamin (VITAMIN B-12) 1,000 mcg/mL injectionIndica tions:B12 deficiency Inject 1 mL (1,000 mcg total) into the muscle every 30 (thirty) days. 3 mL 4 07/05/20 24 Active folic acid (FOLVITE) 1 MG tabletIndicatio ns:retirement methotrexate user TAKE 1 TABLET BY MOUTH EVERY DAY 90 tablet 3 04/18/20 25 Active lisinopril (PRINIVIL,ZESTR IL) 20 MG tablet TAKE 1 TABLET BY MOUTH TWICE A DAY 180 tablet 3 07/25/20 25 Active predniSONE (DELTASONE) 10 MG tabletIndicatio ns: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 with complication TAKE 3 TABLETS BY MOUTH WITH FOOD OR MILK ONCE DAILY 90 tablet 08/04/20 25 Active Additional Information Patient taking differently: 10 mg, 4 tabs daily, Reported on 08/24/2025 SKYRIZI 360 mg/2.4 mL (150 mg/mL) subcutaneous on body injectorIndicat ions: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 with other complication Inject 2.4 mL (360 mg total) under the skin once every 8 weeks. 2.4 mL 6 08/15/20 25 Active predniSONE (DELTASONE) 5 MG tablet Take 8 tablets (40 mg total) by mouth daily with breakfast for 7 days, THEN 7 tablets (35 mg total) daily with breakfast for 7 days, THEN 6 tablets (30 mg total) daily with breakfast for 7 days, THEN 5 tablets (25 mg total) daily with breakfast for 7 days, THEN 4 tablets (20 mg total) daily with breakfast for 7 days, THEN 3 tablets (15 mg total) daily with breakfast for 7 days, THEN 2 tablets (10 mg total) daily with breakfast for 7 days, THEN 1 tablet (5 mg total) daily with breakfast for 7 days. 252 tablet 08/17/20 25 026 Active SKYRIZI 360 mg/2.4 mL (150 mg/mL) subcutaneous on body injector Inject 360 mg under the skin once every 8 weeks. 07/05/20 25 025 Discontinued polyethylene glycol (GOLYTELY) 236-22.74-6.74 -5.86 gram solution Take 4,000 mL by mouth once for 1 dose. 1 mL 08/23/20 25 025 Hospital, Clinic, or Other Facility Administered Medication Ordered Dose Route Frequency Start Date End Date Status cyanocobalamin (VITAMIN B-12) 1,000 mcg/mL injection 1,000 mcgIndications:B12 deficiency 1000 mcg IM Every 30 days 08/16/2024 Active Active Problems Problem Noted Date Diagnosed Date Class 1 obesity due to exces s calories with serious comorbidity and body mass index (BMI) of 32.0 to 32.9 in adult 07/28/2025 Assessment & Plan (07/28/2025 4:28 PM EDT): Continue diligent portion control. Limit concentrated sugars, saturated fats and calories in the diet. Keep well-hydrated. If unable to achieve expected goal consider formal dietary/nutritional support. Vitamin B12 deficiency 04/27/2025 Assessment & Plan (07/28/2025 4:04 PM EDT): Continue regular intramuscular every 30-days supplementation Assessment & Plan (05/22/2025 9:54 PM EDT): Continue regular intramuscular every 30-days supplementation Primary osteoarthritis of both knees 03/21/2025 Overview (03/21/2025): Prev injections by Dr Samuel Ref to ortho, has R>L effusions Assessment & Plan (03/21/2025 3:31 PM EDT): Orders: Ambulatory referral to [facility] - Employed Practices Prediabetes 03/21/2025 Overview (03/21/2025): Cut carbs and gluten [fam hx intolerance]. Assessment & Plan (03/21/2025 3:31 PM EDT): Orders: Basic metabolic panel; Future Hemoglobin A1c; Future Obesity due to excess calories with serious leandro rbidity 10/28/2024 Assessment & Plan (05/22/2025 9:53 PM EDT): Congratulations on losing 1 pounds from 187 on 01/26/2025 down to 186 today and keep it off. Continue diligent portion control. Limit concentrated sugars, saturated fats and calories in the diet. Keep well-hydrated. If unable to achieve expected goal consider formal dietary/nutritional support. Assessment & Plan (02/20/2025 9:00 PM EDT): Congratulations on losing 3 pounds from 191 on 10/28/2024 down to 188 today and keep it off. Continue diligent portion control. Limit concentrated sugars, saturated fats and calories in the diet. Keep well-hydrated. If unable to achieve expected goal consider formal dietary/nutritional support. Assessment & Plan (11/22/2024 11:34 AM EST): Continue diligent portion control. Limit concentrated sugars, saturated fats and calories in the diet. Keep well-hydrated. If unable to achieve expected goal consider formal dietary/nutritional support. Hard corn 10/28/2024 Assessment & Plan (11/22/2024 11:44 AM EST): I provided him with couple of names of local podiatrists to check his insurance coverage prior to making appt.( Denise Angeles,DPM vs JAYLIN BanksM vs Greg Fischer DPM vs Manish Martinez,DPM vs Greg Iverson DPM). GERD (gastroesophageal reflux disease) Assessment & Plan (07/28/2025 4:04 PM EDT): Avoid late, large, spicy meals. Keep headboard elevated at 45 angle for nighttime. Carefully continue Pepcid (famotidine) 20 mg daily as prescribed. Assessment & Plan (04/27/2025 4:18 PM EDT): Avoid late, large, spicy meals. Keep headboard elevated at 45 angle for nighttime. Carefully continue Pepcid (famotidine) 20 mg daily as prescribed. Assessment & Plan (01/26/2025 5:34 PM EDT): Avoid late, large, spicy meals. Keep headboard elevated at 45 angle for nighttime. Carefully continue Pepcid (famotidine) 20 mg daily as prescribed. Assessment & Plan (08/22/2024 7:41 PM EST): Avoid late, large, spicy meals. Keep headboard elevated at 45 angle for nighttime. Carefully continue Pepcid (famotidine) 20 mg daily as prescribed. Skin rash 05/01/2024 Assessment & Plan (05/01/2024 10:37 PM EDT): Mostly present on his legs, nonpruritic. He is wondering whether it is secondary to methotrexate. I advised him to take pictures of the skin rash now and skip 2 weekly methotrexate doses and get another picture of the rash to see whether it is improving. Cataracts, bilateral 03/15/2024 Overview (03/15/2024): left eye March 22, right eye April 05 at [facility] with Dr. Marisela GONZALEZ-19 10/06/2023 Overview (10/21/2023): Admitted for 2 nights to [facility] this month, now doing better Assessment & Plan (10/06/2023 8:27 PM EST): He states that he was feeling poorly at least since [place]. This is at least 7 days ago and he is not a candidate for Paxlovid. I discussed that he is on the outside of the range of benefit for remdesivir, but I feel given his immunocompromise state he probably would derive more benefit from this than risk. He was amenable and agreed to remdesivir. With his immunocompromise state he was instructed to receive a COVID-vaccine following recovery and he should receive a COVID-vaccine at least every year. He stated his understanding and intent to comply. Hyperchloremic metabolic acidosis 10/06/2023 Assessment & Plan (10/06/2023 8:26 PM EST): Due to GI losses and IV fluids. Will give half-normal saline. Localized osteoporosis witho ut current pathological fracture 07/01/2023 Overview (07/01/2023): Left femoral neck -2.6, left hip -1.8, June 2023 Assessment & Plan (07/28/2025 4:31 PM EDT): He recalls severe reaction to Reclast several years ago- my knee blew up afterwards and had to be drained . Proper calcium and vitamin D supplementation, daily weightbearing exercises, fall and fracture prevention strategies strongly encouraged. Recent BMD from [facility] on 06/23/2023 revealed: Left femoral neck T-score -2.6= osteoporosis, Left total hip T-score -1.8= osteopenia, Lumbar spine T score 0.9= normal, Left distal 1/3 radius T-score -0.7= osteopenia - see details in imaging section of [facility] Due to Crohn's disease he is unable to take oral medications and I have offered him subcutaneous every 6 months Prolia versus every 3 months IV Boniva but he is not ready to add it to his regimen at this time particularly that he has not seen dentist for several years and worries that he may need dental procedure. Interval BMD from 04/13/2025 at [facility] revealed osteoporosis in left femoral neck: T-score -2.5 with left total hip osteopenia: T-score -1.8. He remains hesitant to add any bone preserving therapy at this time. Assessment & Plan (04/27/2025 4:16 PM EDT): He recalls severe reaction to Reclast several years ago- my knee blew up afterwards and had to be drained . Proper calcium and vitamin D supplementation, daily weightbearing exercises, fall and fracture prevention strategies strongly encouraged. Recent BMD from [facility] on 06/23/2023 revealed: Left femoral neck T-score -2.6= osteoporosis, Left total hip T-score -1.8= osteopenia, Lumbar spine T score 0.9= normal, Left distal 1/3 radius T-score -0.7= osteopenia - see details in imaging section of [facility] Due to Crohn's disease he is unable to take oral medications and I have offered him subcutaneous every 6 months Prolia versus every 3 months IV Boniva but he is not ready to add it to his regimen at this time particularly that he has not seen dentist for several years and worries that he may need dental procedure. He is scheduled for interval BMD on 04/13/2025 at [facility]. Assessment & Plan (03/21/2025 3:31 PM EDT): Assessment & Plan (02/20/2025 8:59 PM EDT): He recalls severe reaction to Reclast several years ago- my knee blew up afterwards and had to be drained . Proper calcium and vitamin D supplementation, daily weightbearing exercises, fall and fracture prevention strategies strongly encouraged. Recent BMD from [facility] on 06/23/2023 revealed: Left femoral neck T-score -2.6= osteoporosis, Left total hip T-score -1.8= osteopenia, Lumbar spine T score 0.9= normal, Left distal 1/3 radius T-score -0.7= osteopenia - see details in imaging section of [facility] Due to Crohn's disease he is unable to take oral medications and I have offered him subcutaneous every 6 months Prolia versus every 3 months IV Boniva but he is not ready to add it to his regimen at this time particularly that he has not seen dentist for several years and worries that he may need dental procedure. He is scheduled for interval BMD on 04/13/2025 at [facility]. Assessment & Plan (08/22/2024 7:45 PM EST): He recalls severe reaction to Reclast several years ago- my knee blew up afterwards and had to be drained . Proper calcium and vitamin D supplementation, daily weightbearing exercises, fall and fracture prevention strategies strongly encouraged. Recent BMD from [facility] on 06/23/2023 revealed: Left femoral neck T-score -2.6= osteoporosis, Left total hip T-score -1.8= osteopenia, Lumbar spine T score 0.9= normal, Left distal 1/3 radius T-score -0.7= osteopenia - see details in imaging section of [facility] Due to Crohn's disease he is unable to take oral medications and I have offered him subcutaneous every 6 months Prolia versus every 3 months IV Boniva but he is not ready to add it to his regimen at this time particularly that he has not seen dentist for several years and worries that he may need dental procedure. Assessment & Plan (08/26/2023 11:28 AM EST): He recalls severe reaction to Reclast several years ago- my knee blew up afterwards and had to be drained . Proper calcium and vitamin D supplementation, daily weightbearing exercises, fall and fracture prevention strategies strongly encouraged. Recent BMD from [facility] on 06/23/2023 revealed: Left femoral neck T-score -2.6= osteoporosis, Left total hip T-score -1.8= osteopenia, Lumbar spine T score 0.9= normal, Left distal 1/3 radius T-score -0.7= osteopenia - see details in imaging section of epic On 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 04/24/2023 Assessment & Plan (07/28/2025 4:04 PM EDT): Continue as prescribed.May need to build up the dose toward max tolerable. Return for regular checkups at least every 3 months. Monitor for side effects including but not limited to abdominal pain, skin discoloration, rash, excessive bruising or fatigue. Assessment & Plan (04/27/2025 4:15 PM EDT): Continue as prescribed.May need to build up the dose toward max tolerable. Return for regular checkups at least every 3 months. Monitor for side effects including but not limited to abdominal pain, skin discoloration, rash, excessive bruising or fatigue. Assessment & Plan (01/26/2025 5:31 PM EDT): Continue as prescribed.May need to build up the dose toward max tolerable. Return for regular checkups at least every 3 months. Monitor for side effects including but not limited to abdominal pain, skin discoloration, rash, excessive bruising or fatigue. Assessment & Plan (11/22/2024 11:33 AM EST): Continue as prescribed.May need to build up the dose toward max tolerable. Return for regular checkups at least every 3 months. Monitor for side effects including but not limited to abdominal pain, skin discoloration, rash, excessive bruising or fatigue. Assessment & Plan (08/22/2024 7:34 PM EST): Continue as prescribed. Return for regular checkups at least every 3 months. Monitor for side effects including but not limited to abdominal pain, skin discoloration, rash, excessive bruising or fatigue. Assessment & Plan (04/26/2024 4:30 PM EDT): Continue as prescribed. Return for regular checkups at least every 3 months. Monitor for side effects including but not limited to abdominal pain, skin discoloration, rash, excessive bruising or fatigue. Assessment & Plan (12/26/2023 4:10 PM EDT): Continue as prescribed. Return for regular checkups at least every 3 months. Monitor for side effects including but not limited to abdominal pain, skin discoloration, rash, excessive bruising or fatigue. Assessment & Plan (08/25/2023 3:47 PM EST): Continue as prescribed. Return for regular checkups at least every 3 months. Monitor for side effects including but not limited to abdominal pain, skin discoloration, rash, excessive bruising or fatigue. Assessment & Plan (04/24/2023 4:49 PM EDT): Continue as prescribed. Return for regular checkups at least every 3 months. Monitor for side effects including but not limited to abdominal pain, skin discoloration, rash, excessive bruising or fatigue. Pain in both feet 01/23/2023 Assessment & Plan (02/18/2023 3:00 PM EDT): Well fitting, supportive shoes. Gentle, regular exercise routine after warm pack. Avoid falls, injuries, prolonged standing. Use topical products 2-3 times daily as needed and consider local steroid injection if all above measures insufficient Venous insufficiency of both lower extremities 0 05/17/2022 Assessment & Plan (04/26/2024 4:30 PM EDT): Educated to keep feet elevated preferably above the heart level and start using compression stockings put on first thing in the morning prior to taking legs off the bed. Assessment & Plan (06/09/2022 4:40 PM EDT): Educated to keep feet elevated preferably above the heart level and start using compression stockings put on first thing in the morning prior to taking legs off the bed. Advice given about COVID-19 virus infection 03/2022 Assessment & Plan (01/13/2022 6:16 PM EDT): According to CDC, FDA and ACR advisories he is due for 4th dose of COVID-19 vaccine 3 months after receiving 3rd dose that he got on 10/03/2021. In view of Remicade infusion I have advised him to get it for months after administration: On 01/29/2022 and hold 1 weekly methotrexate dose after it. He was also educated to make sure that he follows personal protective strategies but in case he would get sick with Covid call within the first 24-48 hours to receive monoclonal antibody therapy. Crohn's disease of large bowel 05/17/2020 Assessment & Plan (07/13/2025 12:32 PM EDT): Tre's Crohn's disease does not appear to be well-controlled on the Skyrizi. He has an elevated fecal calprotectin of over 1400. His last colonoscopy was in August 2024 and showed inflammation throughout the colon. At the time of his last colonoscopy he was taking Stelara. I recommend a trial on Rinvoq, but patient is hesitant because of the risks of cardiovascular events. He would like to have a referral to [facility] inflammatory bowel disease clinic for a second opinion. I will happily send a referral and encouraged him to follow-up. He mentions that he would prefer a virtual visit if at all possible. Long-term use of immunosuppressant medication Assessment & Plan (07/28/2025 4:04 PM EDT): Carefully continue IV Skyrizi 600 mg infusion every 8 weeks after first loading IV dose on 06/30/2024 versus switch over to daily oral Rinvoq (upadacitinib) versus subcutaneous every 8 weeks Tremfya (guselkumab). Make sure to inform any new MD, [employer], [employer] about chronic immunosuppression especially in emergency situations. Assessment & Plan (05/22/2025 9:51 PM EDT): Carefully continue IV Skyrizi 600 mg infusion every 8 weeks after first loading IV dose on 06/30/2024 versus switch over to daily oral Rinvoq (upadacitinib) versus subcutaneous every 8 weeks Tremfya (guselkumab). Make sure to inform any new MD, [employer], PA about chronic immunosuppression especially in emergency situations. Assessment & Plan (03/21/2025 3:31 PM EDT): Assessment & Plan (01/26/2025 5:33 PM EDT): Carefully continue IV Skyrizi 600 mg infusion every 8 weeks after first loading IV dose on 06/30/2024. Make sure to inform any new MD, [employer], PA about chronic immunosuppression especially in emergency situations. Assessment & Plan (11/22/2024 11:35 AM EST): Carefully continue IV Skyrizi 600 mg infusion every 8 weeks after first loading IV dose on 06/30/2024. Make sure to inform any new MD, [employer], PA about chronic immunosuppression especially in emergency situations. Assessment & Plan (08/22/2024 7:37 PM EST): Carefully continue IV Skyrizi 600 mg infusion every 4 weeks x 3 after first loading IV dose on 06/30/2024. Make sure to inform any new MD, [employer], PA about chronic immunosuppression especially in emergency situations. Assessment & Plan (04/26/2024 4:29 PM EDT): Carefully continue subcutaneous Stelara injections every 8 weeks after first loading IV dose today. Make sure to inform any new MD, [employer], PA about chronic immunosuppression especially in emergency situations. Assessment & Plan (12/26/2023 4:10 PM EDT): Carefully continue subcutaneous Stelara injections every 8 weeks after first loading IV dose today. Make sure to inform any new MD, [employer], PA about chronic immunosuppression especially in emergency situations. Assessment & Plan (04/24/2023 10:20 PM EDT): Carefully continue subcutaneous Stelara injections every 8 weeks after first loading IV dose today. Make sure to inform any new MD [employer], [employer] about chronic immunosuppression especially in emergency situations. Assessment & Plan (02/18/2023 3:05 PM EDT): Continue Inflectra infusions as scheduled by his egg smeller every 6 weeks. Make sure to inform any new MD [employer], [employer] about chronic immunosuppression particularly in emergency situations. Assessment & Plan (10/04/2021 9:13 PM EST): Continue Inflectra infusions as scheduled by his egg smeller every 6 weeks. Make sure to inform any new EMILY LANDA PA about chronic immunosuppression particularly in emergency situations. Assessment & Plan (03/19/2020 2:38 PM EDT): Continue Entyvio infusions as scheduled by his egg smeller every 8 weeks. Make sure to inform any new EMILY LANDA PA about chronic immunosuppression particularly in emergency situations. Assessment & Plan (11/22/2019 3:57 PM EST): Continue infusions as scheduled by his egg smeller every 8 weeks. Make sure to inform any new EMILY LANDA PA about chronic immunosuppression particularly in emergency situations. Assessment & Plan (09/06/2019 9:54 AM EST): Continue infusions as scheduled by his egg smeller every 8 weeks. Make sure to inform any new EMILY LANDA, PA about chronic immunosuppression particularly in emergency situations. Assessment & Plan (03/06/2019 9:33 PM EDT): Continue infusions as scheduled by his egg smeller every 8 weeks. Make sure to inform any new MD [employer] about chronic immunosuppression particularly in emergency situations. On allopurinol therapy 10/12/2018 Assessment & Plan (07/28/2025 4:03 PM EDT): Keep well-hydrated. Follow low purine diet. Take exactly as prescribed and return for periodic checkup. Assessment & Plan (04/27/2025 4:15 PM EDT): Keep well-hydrated. Follow low purine diet. Take exactly as prescribed and return for periodic checkup. Assessment & Plan (01/26/2025 5:32 PM EDT): Keep well-hydrated. Follow low purine diet. Take exactly as prescribed and return for periodic checkup. Assessment & Plan (10/28/2024 4:20 PM EST): Keep well-hydrated. Follow low purine diet. Take exactly as prescribed and return for periodic checkup. Assessment & Plan (08/22/2024 7:34 PM EST): Keep well-hydrated. Follow low purine diet. Take exactly as prescribed and return for periodic checkup. Assessment & Plan (04/26/2024 4:29 PM EDT): Keep well-hydrated. Follow low purine diet. Take exactly as prescribed and return for periodic checkup. Assessment & Plan (04/24/2023 10:20 PM EDT): Keep well-hydrated. Follow low purine diet. Take exactly as prescribed and return for periodic checkup. Assessment & Plan (01/23/2023 4:33 PM EDT): Keep well-hydrated. Follow low purine diet. Take exactly as prescribed and return for periodic checkup. Assessment & Plan (05/17/2022 3:46 PM EDT): Keep well-hydrated. Follow low purine diet. Take exactly as prescribed and return for periodic checkup. Assessment & Plan (01/09/2022 3:22 PM EDT): Keep well-hydrated. Follow low purine diet. Take exactly as prescribed and return for periodic checkup. Assessment & Plan (09/10/2021 3:34 PM EST): Keep well-hydrated. Follow low purine diet. Take exactly as prescribed and return for periodic checkup. Assessment & Plan (03/17/2020 3:14 PM EDT): Keep well-hydrated. Follow low purine diet. Take exactly as prescribed and return for periodic checkup. Assessment & Plan (11/22/2019 3:58 PM EST): Keep well-hydrated. Follow low purine diet. Take exactly as prescribed and return for periodic checkup. Assessment & Plan (08/25/2019 2:45 PM EST): Keep well-hydrated. Follow low purine diet. Take exactly as prescribed and return for periodic checkup. Assessment & Plan (05/28/2019 3:19 PM EDT): Keep well-hydrated. Follow low purine diet. Take exactly as prescribed and return for periodic checkup. Assessment & Plan (03/06/2019 9:32 PM EDT): Keep well-hydrated. Follow low purine diet. Take exactly as prescribed and return for periodic checkup. Assessment & Plan (12/15/2018 9:04 PM EDT): Keep well-hydrated. Follow low purine diet. Take exactly as prescribed and return for periodic checkup. Raynaud's disease without gangrene 10/12/2018 Assessment & Plan (07/28/2025 4:04 PM EDT): Keep warm, dress in layers. Optimize stress management strategies. Avoid vasoconstrictors in OTC products for cold/flu and sinus. Assessment & Plan (04/27/2025 4:16 PM EDT): Keep warm, dress in layers. Optimize stress management strategies. Avoid vasoconstrictors in OTC products for cold/flu and sinus. Assessment & Plan (01/26/2025 5:32 PM EDT): Keep warm, dress in layers. Optimize stress management strategies. Avoid vasoconstrictors in OTC products for cold/flu and sinus. Assessment & Plan (10/28/2024 4:20 PM EST): Keep warm, dress in layers. Optimize stress management strategies. Avoid vasoconstrictors in OTC products for cold/flu and sinus. Assessment & Plan (04/26/2024 4:29 PM EDT): Keep warm, dress in layers. Optimize stress management strategies. Avoid vasoconstrictors in OTC products for cold/flu and sinus. Assessment & Plan (01/23/2023 4:34 PM EDT): Keep warm, dress in layers. Optimize stress management strategies. Avoid vasoconstrictors in OTC products for cold/flu and sinus. Assessment & Plan (01/09/2022 3:23 PM EDT): Keep warm, dress in layers. Optimize stress management strategies. Avoid vasoconstrictors in OTC products for cold/flu and sinus. Assessment & Plan (09/10/2021 3:34 PM EST): Keep warm, dress in layers. Optimize stress management strategies. Avoid vasoconstrictors in OTC products for cold/flu and sinus. Assessment & Plan (03/17/2020 3:11 PM EDT): Keep warm, dress in layers. Optimize stress management strategies. Avoid vasoconstrictors in OTC products for cold/flu and sinus. Assessment & Plan (11/22/2019 4:02 PM EST): Keep warm, dress in layers. Optimize stress management strategies. Avoid vasoconstrictors in OTC products for cold/flu and sinus. Assessment & Plan (08/25/2019 2:45 PM EST): Keep warm, dress in layers. Optimize stress management strategies. Avoid vasoconstrictors in OTC products for cold/flu and sinus. Assessment & Plan (05/28/2019 3:20 PM EDT): Keep warm, dress in layers. Optimize stress management strategies. Avoid vasoconstrictors in OTC products for cold/flu and sinus. Assessment & Plan (02/26/2019 3:11 PM EDT): Keep warm, dress in layers. Optimize stress management strategies. Avoid vasoconstrictors in OTC products for cold/flu and sinus. Assessment & Plan (12/15/2018 8:07 PM EDT): Keep warm, dress in layers. Optimize stress management strategies. Avoid vasoconstrictors in OTC products for cold/flu and sinus. Chronic midline low back pain without sciatica 1 Assessment & Plan (04/24/2023 10:22 PM EDT): He found regular PT very helpful for back pain and stiffness in addition to his legs and feet pain, stiffness and weakness. He has very hard time doing exercises himself at home and needs help from physical therapist on a regular basis to prevent development of contractures that increases risk for falling and fractures. I recommend him extension of PT due to his chronic progressive severe ankylosing spondylitis with concomitant severe Crohn's disease in addition to prostate cancer Chronic disease anemia 03/31/2018 Overview (03/31/2018): Previously on Fe+ replacement, but it caused bleeding and belly pain. Assessment & Plan (02/20/2025 8:58 PM EDT): Frequently worsening at the time of Crohn's disease flare Assessment & Plan (06/03/2024 3:44 PM EDT): Also gets LGIB with IBD flares. Personal history of renal calculi 03/13/2018 Assessment & Plan (04/27/2025 4:16 PM EDT): Encouraged to continue proper hydration and close follow-up with his urologist as scheduled. Assessment & Plan (02/20/2025 8:57 PM EDT): Encouraged to continue proper hydration and close follow-up with his urologist as scheduled. 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 Daily calcium and vitamin D supplementation. Regular weightbearing exercises. Fall prevention strategies. Monitor for multiple side effects including but not limited to increased risk of hips, knees and jaw osteonecrosis, mood swings, increased intraocular and systemic pressure, diabetes, osteoporosis, fluid retention, increased appetite, risk of infection, bruising, hair thinning etc. Assessment & Plan (04/27/2025 4:15 PM EDT): Gently taper as tolerated when ready. Daily calcium and vitamin D supplementation. Regular weightbearing exercises. Fall prevention strategies. Monitor for multiple side effects including but not limited to increased risk of hips, knees and jaw osteonecrosis, mood swings, increased intraocular and systemic pressure, diabetes, osteoporosis, fluid retention, increased appetite, risk of infection, bruising, hair thinning etc. Assessment & Plan (02/20/2025 8:58 PM EDT): Gently taper as tolerated when ready. Daily calcium and vitamin D supplementation. Regular weightbearing exercises. Fall prevention strategies. Monitor for multiple side effects including but not limited to increased risk of hips, knees and jaw osteonecrosis, mood swings, increased intraocular and systemic pressure, diabetes, osteoporosis, fluid retention, increased appetite, risk of infection, bruising, hair thinning etc. Assessment & Plan (10/28/2024 4:21 PM EST): Gently taper as tolerated. Daily calcium and vitamin D supplementation. Regular weightbearing exercises. Fall prevention strategies. Monitor for multiple side effects including but not limited to increased risk of hips, knees and jaw osteonecrosis, mood swings, increased intraocular and systemic pressure, diabetes, osteoporosis, fluid retention, increased appetite, risk of infection, bruising, hair thinning etc. Assessment & Plan (08/22/2024 7:37 PM EST): Gently taper as tolerated. Daily calcium and vitamin D supplementation. Regular weightbearing exercises. Fall prevention strategies. Monitor for multiple side effects including but not limited to increased risk of hips, knees and jaw osteonecrosis, mood swings, increased intraocular and systemic pressure, diabetes, osteoporosis, fluid retention, increased appetite, risk of infection, bruising, hair thinning etc. Assessment & Plan (04/26/2024 4:29 PM EDT): Gently taper as tolerated. Daily calcium and vitamin D supplementation. Regular weightbearing exercises. Fall prevention strategies. Monitor for multiple side effects including but not limited to increased risk of hips, knees and jaw osteonecrosis, mood swings, increased intraocular and systemic pressure, diabetes, osteoporosis, fluid retention, increased appetite, risk of infection, bruising, hair thinning etc. Assessment & Plan (08/25/2023 3:49 PM EST): Gently taper as tolerated. Daily calcium and vitamin D supplementation. Regular weightbearing exercises. Fall prevention strategies. Monitor for multiple side effects including but not limited to increased risk of hips, knees and jaw osteonecrosis, mood swings, increased intraocular and systemic pressure, diabetes, osteoporosis, fluid retention, increased appetite, risk of infection, bruising, hair thinning etc. Assessment & Plan (04/24/2023 10:19 PM EDT): Gently taper as tolerated. Daily calcium and vitamin D supplementation. Regular weightbearing exercises. Fall prevention strategies. Monitor for multiple side effects including but not limited to creased risk of hips, knees and jaw osteonecrosis, mood swings, increased intraocular and systemic pressure, diabetes, osteoporosis, fluid retention, increased appetite, risk of infection, bruising, hair thinning etc. Assessment & Plan (01/23/2023 4:33 PM EDT): Gently taper as tolerated. Daily calcium and vitamin D supplementation. Regular weightbearing exercises. Fall prevention strategies. Monitor for multiple side effects including but not limited to increased risk of hips, knees and jaw osteonecrosis, mood swings, increased intraocular and systemic pressure, diabetes, osteoporosis, fluid retention, increased appetite, risk of infection, bruising, hair thinning etc. Assessment & Plan (05/17/2022 3:45 PM EDT): Gently taper as tolerated. Daily calcium and vitamin D supplementation. Regular weightbearing exercises. Fall prevention strategies. Monitor for multiple side effects including but not limited to increased risk of hips, knees and jaw osteonecrosis, mood swings, increased intraocular and systemic pressure, diabetes, osteoporosis, fluid retention, increased appetite, risk of infection, bruising, hair thinning etc. Assessment & Plan (01/13/2022 6:10 PM EDT): Gently taper as tolerated. Daily calcium and vitamin D supplementation. Regular weightbearing exercises. Fall prevention strategies. Monitor for multiple side effects including but not limited to increased risk of hips, knees and jaw osteonecrosis, mood swings, increased intraocular and systemic pressure, diabetes, osteoporosis, fluid retention, increased appetite, risk of infection, bruising, hair thinning etc. Assessment & Plan (10/04/2021 9:12 PM EST): Gently taper as tolerated. Daily calcium and vitamin D supplementation. Regular weightbearing exercises. Fall prevention strategies. Monitor for multiple side effects including but not limited to increased risk of hips, knees, jaw osteonecrosis, mood swings, increased intraocular and systemic pressure, diabetes, osteoporosis, fluid retention, increased appetite, risk of infection, bruising, hair thinning etc. Assessment & Plan (03/17/2020 3:13 PM EDT): Gently taper as tolerated. Daily calcium and vitamin D supplementation. Regular weightbearing exercises. Fall prevention strategies. Monitor for multiple side effects including but not limited to mood swings, increased intraocular and systemic pressure, diabetes, osteoporosis, fluid retention, increased appetite, risk of infection, bruising, hair thinning etc. Assessment & Plan (11/22/2019 3:57 PM EST): Gently taper as tolerated. Daily calcium and vitamin D supplementation. Regular weightbearing exercises. Fall prevention strategies. Monitor for multiple side effects including but not limited to mood swings, increased intraocular and systemic pressure, diabetes, osteoporosis, fluid retention, increased appetite, risk of infection, bruising, hair thinning etc. Assessment & Plan (08/25/2019 2:45 PM EST): Gently taper as tolerated. Daily calcium and vitamin D supplementation. Regular weightbearing exercises. Fall prevention strategies. Monitor for multiple side effects including but not limited to mood swings, increased intraocular and systemic pressure, diabetes, osteoporosis, fluid retention, increased appetite, risk of infection, bruising, hair thinning etc. Assessment & Plan (05/28/2019 3:19 PM EDT): Gently taper as tolerated. Daily calcium and vitamin D supplementation. Regular weightbearing exercises. Fall prevention strategies. Monitor for multiple side effects including but not limited to mood swings, increased intraocular and systemic pressure, diabetes, osteoporosis, fluid retention, increased appetite, risk of infection, bruising, hair thinning etc. Assessment & Plan (12/15/2018 9:05 PM EDT): Gently taper as tolerated. Daily calcium and vitamin D supplementation. Regular weightbearing exercises. Fall prevention strategies. Monitor for multiple side effects including but not limited to mood swings, increased intraocular and systemic pressure, diabetes, osteoporosis, fluid retention, increased appetite, risk of infection, bruising, hair thinning etc. Ankylosing spondylitis of cervical region 2017 Assessment & Plan (07/28/2025 4:28 PM EDT): Carefully continue on current medications as prescribed: sulfasalazine 500 mg twice daily. Consider building up the dose as close as tolerated to the max of 2000 mg twice daily if ongoing synovitis. Alternatively consider switching Skyrizi to Rinvoq (ustekinumab) versus Tremfya (guselkumab) if GI concurs. Joint protection, energy conservation. He is awaiting second opinion GI consult [place] [facility] [place]. Gentle, regular ROM, stretching and me strengthening exercises. Get labs prior to next visit - standing orders in [facility] Apply topical Aspercreme, Arnica or Biofreeze toward the left wrist and left foot at the time of pain & swelling. If no better or worse consider local steroid injection. Avoid falls, injuries, overuse. Avoid sick contacts. Call with questions or problems. Assessment & Plan (05/22/2025 9:55 PM EDT): Carefully continue on current medications as prescribed: sulfasalazine 500 mg twice daily. Consider building up the dose as close as tolerated to the max of 2000 mg twice daily if ongoing synovitis. Alternatively consider switching Skyrizi to Rinvoq (ustekinumab) versus Tremfya (guselkumab) if GI concurs. Joint protection, energy conservation. Gentle, regular ROM, stretching and me strengthening exercises. Get labs prior to next visit - standing orders in [facility] Apply topical Aspercreme, Arnica or Biofreeze toward the left wrist and left foot at the time of pain & swelling. If no better or worse consider local steroid injection. Avoid falls, injuries, overuse. Avoid sick contacts. Call with questions or problems. Assessment & Plan (03/21/2025 3:31 PM EDT): Assessment & Plan (01/26/2025 5:31 PM EDT): Carefully continue on current medications as prescribed: sulfasalazine 500 mg twice daily. Consider building up the dose as close as tolerated to the max of 2000 mg twice daily if ongoing synovitis. Alternatively consider switching Skyrizi to Rinvoq if GI concurs- pamphlet provided to discuss on f/u in Nov 2024. Joint protection, energy conservation. Gentle, regular ROM, stretching and me strengthening exercises. Get labs prior to next visit - standing orders in [facility] Apply topical Aspercreme, Arnica or Biofreeze toward the left wrist and left foot at the time of pain & swelling. If no better or worse consider local steroid injection. Avoid falls, injuries, overuse. Avoid sick contacts. Call with questions or problems. Assessment & Plan (11/22/2024 11:32 AM EST): Carefully continue on current medications as prescribed: sulfasalazine 500 mg twice daily. Consider building up the dose as close as tolerated to the max of 2000 mg twice daily if ongoing synovitis. Alternatively consider switching Skyrizi to Rinvoq if GI concurs- pamphlet provided to discuss on f/u in Nov 2024. Joint protection, energy conservation. Gentle, regular ROM, stretching and me strengthening exercises. Get labs prior to next visit - standing orders in [facility] Apply topical Aspercreme, Arnica or Biofreeze toward the left wrist and left foot at the time of pain & swelling. If no better or worse consider local steroid injection. Avoid falls, injuries, overuse. Avoid sick contacts. Call with questions or problems. Assessment & Plan (07/28/2024 4:11 PM EDT): Carefully continue on current medications as prescribed: Methotrexate 12.5 mg subcutaneously every week on , folic acid 1 mg daily in addition to sulfasalazine 500 mg twice daily. I have encouraged him to carefully continue weekly subcutaneous methotrexate until able to taper off of prednisone. Joint protection, energy conservation. Gentle, regular ROM, stretching and me strengthening exercises. Get labs prior to next visit - standing orders in [facility] Apply topical Aspercreme, Arnica or Biofreeze toward the left wrist and left foot at the time of pain & swelling. If no better or worse consider local steroid injection. Avoid falls, injuries, overuse. Avoid sick contacts. Call with questions or problems. Assessment & Plan (04/26/2024 4:28 PM EDT): Carefully continue on current medications as prescribed: Methotrexate 12.5 mg subcutaneously every week on , folic acid 1 mg daily in addition to sulfasalazine 500 mg twice daily. I have encouraged him to carefully continue weekly subcutaneous methotrexate until able to taper off of prednisone. Joint protection, energy conservation. Gentle, regular ROM, stretching and me strengthening exercises. Get labs prior to next visit - standing orders in [facility] Apply topical Aspercreme, Arnica or Biofreeze toward the left wrist and left foot at the time of pain & swelling. If no better or worse consider local steroid injection. Avoid falls, injuries, overuse. Avoid sick contacts. Call with questions or problems. Assessment & Plan (12/26/2023 4:09 PM EDT): Carefully continue on current medications as prescribed: Methotrexate 12.5 mg subcutaneously every week on , folic acid 1 mg daily in addition to sulfasalazine 500 mg twice daily. I have encouraged him to carefully continue weekly subcutaneous methotrexate until able to taper off of prednisone. Joint protection, energy conservation. Gentle, regular ROM, stretching and me strengthening exercises. Get labs prior to next visit - standing orders in [facility] Apply topical Aspercreme, Arnica or Biofreeze toward the left wrist and left foot at the time of pain & swelling. If no better or worse consider local steroid injection. Avoid falls, injuries, overuse. Avoid sick contacts. Call with questions or problems. Assessment & Plan (08/26/2023 11:23 AM EST): Carefully continue on current medications as prescribed: Methotrexate 12.5 mg subcutaneously every week on , folic acid 1 mg daily in addition to sulfasalazine 500 mg twice daily. I have encouraged him to carefully continue weekly subcutaneous methotrexate until able to taper off of prednisone. Joint protection, energy conservation. Gentle, regular ROM, stretching and me strengthening exercises. Get labs prior to next visit - standing orders in [facility] Apply topical Aspercreme, Arnica or Biofreeze toward the left wrist and left foot at the time of pain & swelling. If no better or worse consider local steroid injection. Avoid falls, injuries, overuse. Avoid sick contacts. Call with questions or problems. Assessment & Plan (04/24/2023 10:14 PM EDT): Carefully continue on current medications as prescribed: Methotrexate 0.5 mg subcutaneously every week on , folic acid 1 mg daily in addition to sulfasalazine 500 mg twice daily. I have asked him to hold methotrexate today due to first dose of Stelara IV but encouraged him to carefully continue weekly subcutaneous methotrexate until able to taper off of prednisone. Joint protection, energy conservation. Gentle, regular ROM, stretching and me strengthening exercises. Get labs prior to next visit - standing orders in [facility] Apply topical Aspercreme, Arnica or Biofreeze toward the left wrist and left foot at the time of pain & swelling. If no better or worse consider local steroid injection. Avoid falls, injuries, overuse. Avoid sick contacts. Call with questions or problems. Assessment & Plan (01/23/2023 4:32 PM EDT): Carefully continue on current medications as prescribed. Joint protection, energy conservation. Gentle, regular ROM, stretching and me strengthening exercises. Get labs prior to next visit - standing orders in [facility] Apply topical Aspercreme, Arnica or Biofreeze toward the left wrist and left foot at the time of pain & swelling. If no better or worse consider local steroid injection. Avoid falls, injuries, overuse. Avoid sick contacts. Call with questions or problems. Assessment & Plan (05/17/2022 3:44 PM EDT): Carefully continue on current medications as prescribed. Joint protection, energy conservation. Gentle, regular ROM, stretching and me strengthening exercises. Get labs prior to next visit - standing orders in [facility] Apply topical Aspercreme, Arnica or Biofreeze toward the left wrist and left foot at the time of pain & swelling. If no better or worse consider local steroid injection. Avoid falls, injuries, overuse. Avoid sick contacts. Call with questions or problems. Assessment & Plan (01/13/2022 6:10 PM EDT): Carefully continue on current medications as prescribed. Joint protection, energy conservation. Gentle, regular ROM, stretching and me strengthening exercises. Get labs prior to next visit - standing orders in [facility] Apply topical Aspercreme, Arnica or Biofreeze toward the left wrist and left foot at the time of pain & swelling. If no better or worse consider local steroid injection. Avoid falls, injuries, overuse. Avoid sick contacts. Call with questions or problems. Assessment & Plan (09/10/2021 3:33 PM EST): Carefully continue on current medications as prescribed. Joint protection, energy conservation. Gentle, regular ROM, stretching and me strengthening exercises. Get labs today Apply topical Aspercreme, Arnica or Biofreeze toward the left wrist and left foot at the time of pain & swelling. If no better or worse consider local steroid injection. Avoid falls, injuries, overuse. Avoid sick contacts. Call with questions or problems. Assessment & Plan (03/19/2020 2:37 PM EDT): Carefully continue on current medications as prescribed. Joint protection, energy conservation. Gentle, regular ROM, stretching and me strengthening exercises. Get labs today Apply topical Aspercreme, Arnica or Biofreeze toward the left wrist and left foot at the time of pain & swelling. If no better or worse consider local steroid injection. Avoid falls, injuries, overuse. Avoid sick contacts. Call with questions or problems. Assessment & Plan (11/22/2019 3:56 PM EST): Carefully continue on current medications as prescribed. Joint protection, energy conservation. Gentle, regular ROM, stretching and me strengthening exercises. Get labs today Apply topical Aspercreme, Arnica or Biofreeze toward the left wrist at the time of pain & swelling. If no better or worse consider local steroid injection. Avoid falls, injuries, overuse. Avoid sick contacts. Call with questions or problems. Assessment & Plan (08/25/2019 2:44 PM EST): Carefully continue on current medications as prescribed. Joint protection, energy conservation. Gentle, regular ROM, stretching and me strengthening exercises. Get labs today Get yearly flu vaccine JACQUE Apply topical Aspercreme, Arnica or Biofreeze toward the left wrist at the time of pain & swelling. If no better or worse consider local steroid injection. Avoid falls, injuries, overuse. Avoid sick contacts. Call with questions or problems. Assessment & Plan (05/28/2019 3:18 PM EDT): Carefully continue on current medications as prescribed. Joint protection, energy conservation. Gentle, regular ROM, stretching and me strengthening exercises. Get labs today Get yearly flu vaccine by July 2019 Apply topical Aspercreme, Arnica or Biofreeze toward the left wrist at the time of pain & swelling. If no better or worse consider local steroid injection. Avoid falls, injuries, overuse. Avoid sick contacts. Call with questions or problems. Assessment & Plan (02/26/2019 3:10 PM EDT): Carefully continue on current medications as prescribed. Joint protection, energy conservation. Gentle, regular ROM, stretching and me strengthening exercises. Apply topical Aspercreme, Arnica or Biofreeze toward the left wrist at the time of pain & swelling. If no better or worse consider local steroid injection. Avoid falls, injuries, overuse. Avoid sick contacts. Call with questions or problems. Assessment & Plan (12/15/2018 9:00 PM EDT): Get the labs today. If normal carefully continue on current medications as prescribed. Joint protection, energy conservation. Gentle, regular ROM, stretching and me strengthening exercises. Avoid falls, injuries, overuse. Avoid sick contacts. Call with questions or problems. Assessment & Plan (03/31/2018 1:16 PM EDT): Stable on pred 10mg and Humira 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 with complica tion 12/29/2017 Overview (03/21/2025): On high dose DMARD with Dr Mi. Gets GI bleeding with prednisone dose lowering. March 2025: on Skyrizi with Dr Asencio. Sx not well controlled per pt Assessment & Plan (07/28/2025 4:03 PM EDT): Carefully continue prednisone and SKYRIZI as prescribed and follow closely with egg smeller as scheduled. If no expected benefit may need to switch to a different DMARD such as Rinvoq (upadacitinib) versus Tremfya (guselkumab) or consider surgical colectomy. Assessment & Plan (05/22/2025 9:49 PM EDT): Carefully continue prednisone and SKYRIZI as prescribed and follow closely with egg smeller as scheduled. If no expected benefit may need to switch to a different DMARD such as Rinvoq (upadacitinib) versus Tremfya (guselkumab) or consider surgical colectomy. Assessment & Plan (03/21/2025 3:31 PM EDT): Assessment & Plan (01/26/2025 5:31 PM EDT): Carefully continue prednisone and SKYRIZI as prescribed and follow closely with egg smeller as scheduled. If no expected benefit may need to consider surgical colectomy. Assessment & Plan (10/28/2024 4:20 PM EST): Carefully continue prednisone and SKYRIZI as prescribed and follow closely with egg smeller as scheduled. If no expected benefit may need to consider surgical colectomy. Assessment & Plan (07/28/2024 4:40 PM EDT): Carefully continue prednisone and SKYRIZI as prescribed and follow closely with egg smeller as scheduled. If no expected benefit may need to consider surgical colectomy. Assessment & Plan (10/21/2023 4:27 PM EST): Currently methotrexate and Stelara being held he recovers from COVID Assessment & Plan (10/06/2023 8:27 PM EST): Continue prednisone and mesalamine. He was instructed to hold his methotrexate last week and he did this. We will continue to hold. His last infusion of Stelara was in July. We will continue to hold off on this while he is ill. Assessment & Plan (08/25/2023 3:47 PM EST): Carefully continue prednisone and Stelara (ustekinumab) as prescribed and follow closely with egg smeller as scheduled. If no expected benefit may need to consider surgical colectomy. Assessment & Plan (04/24/2023 10:15 PM EDT): Carefully continue prednisone and Stelara (ustekinumab) as prescribed and follow closely with egg smeller as scheduled. If no expected benefit may need to consider surgical colectomy. Assessment & Plan (01/23/2023 4:32 PM EDT): Carefully continue prednisone and Inflectra as prescribed and follow closely with egg smeller as scheduled. If no expected benefit may need to consider surgical colectomy. Assessment & Plan (05/17/2022 3:45 PM EDT): Carefully continue prednisone and Inflectra as prescribed and follow closely with egg smeller as scheduled. If no expected benefit may need to consider surgical colectomy. Assessment & Plan (01/09/2022 3:21 PM EDT): Carefully continue prednisone and Inflectra as prescribed and follow closely with egg smeller as scheduled. If no expected benefit may need to consider surgical colectomy. Assessment & Plan (10/04/2021 9:12 PM EST): Carefully continue prednisone and Inflectra as prescribed and follow closely with egg smeller as scheduled. If no expected benefit may need to consider surgical colectomy. Assessment & Plan (03/19/2020 2:38 PM EDT): Due to recent ongoing rectal bleeding, anemia he is awaiting abdominal CT. Carefully continue prednisone and Entyvio as prescribed and follow closely with egg smeller as scheduled. Assessment & Plan (11/22/2019 3:57 PM EST): Carefully continue prednisone and Entyvio as prescribed and follow closely with egg smeller as scheduled. Assessment & Plan (05/28/2019 3:18 PM EDT): Carefully continue prednisone and Entyvio as prescribed and follow closely with egg smeller as scheduled. Assessment & Plan (02/26/2019 3:10 PM EDT): Carefully continue prednisone and Entyvio as prescribed and follow closely with egg smeller as scheduled. Assessment & Plan (12/15/2018 9:02 PM EDT): Carefully continue prednisone and Entyvio as prescribed and follow closely with egg smeller as scheduled. Prostate cancer 12/29/2017 Overview (03/21/2025): sees Dr Gomes locally and Dr. Phelan at [facility] dx 2016, in active surveillance. June 2022: PSA up to 7.5, urology is trying to plan for prostatectomy but it is difficult given his severe inflammatory bowel disease and prednisone dependence. March 2025, PSA 18, accelerated climb. Patient needs to see his urologist for neck steps. Hormone tx planned if PSA climbs >20 Assessment & Plan (04/27/2025 4:17 PM EDT): Most recent PET/CT revealed no spread of prostate cancer-follows closely with local urologist and oncology team at [facility]. Offered prostatectomy however delayed due to his severe inflammatory bowel disease and prednisone dependence. Assessment & Plan (03/21/2025 3:31 PM EDT): Assessment & Plan (02/20/2025 8:57 PM EDT): Most recent PET/CT revealed no spread of prostate cancer-follows closely with local urologist and oncology team at [facility]. Offered prostatectomy however delayed due to his severe inflammatory bowel disease and prednisone dependence. Assessment & Plan (04/24/2023 10:10 PM EDT): Most recent PSA improved-follows closely with local urologist and oncology team at [facility]. Offered prostatectomy however delayed due to his severe inflammatory bowel disease and prednisone dependence. Assessment & Plan (01/31/2021 6:11 PM EDT): Assessment: Tre Garay is a 60 y.o. male with Crohn's disease and a diagnosis of clinical stage T1c intermediate risk prostate cancer (Isaiah score 4+3=7, PSA 7.5 ng/mL). Plan: 1. We spent this consultation discussing the management of intermediate risk prostate cancer. I explained that the internal review of the surgical pathology from the prostate needle biopsy downgraded the disease from high risk prostate cancer to intermediate risk prostate cancer. We discussed the role and rationale for active surveillance, surgical therapy, and radiation therapy. Given the intermediate risk nature of this disease, I discouraged active surveillance. Due to the history of Crohn's disease, radiation therapy has already been deemed a suboptimal treatment option. I explained that despite the well recognized ability for surgery to address intermediate risk prostate cancer, there remains the possibility that secondary therapies may be necessary after surgery to control or eradicate disease. Surgery remains a reasonable option and I definitely recommend an retropubic or extraperitoneal approach. I will refer Mr. Garay to my colleague, Dr. Javon Phelan, who is an authority on the use of radical retropubic prostatectomy for the management of prostate cancer. Mr. Garay is aware that no matter what the option, this is a uniquely challenging situation due to the active issue of Crohn's disease. 2. Mr. Garay will return to see me as needed. Assessment & Plan (11/29/2020 5:21 AM EST): Assessment: Tre Garay is a 60 y.o. male with a recent diagnosis of clinical stage T1c intermediate risk prostate cancer (Isaiah score 4+3=7, PSA 7.5 ng/mL). He has diminished performance status. Plan: 1. We spent this consultation discussing the management of prostate cancer. I explained that the internal review of the surgical pathology from the prostate needle biopsy downgraded the disease from high risk prostate cancer to intermediate risk prostate cancer. we discussed the role and rationale for active surveillance, surgical therapy, and radiation therapy. Given the intermediate risk nature of this disease, I discouraged active surveillance. Due to the history of Crohn's disease, radiation therapy has already been deemed a suboptimal treatment option. I explained that despite the well recognized ability for surgery to address intermediate risk prostate cancer, there remains the possibility that secondary therapies may be necessary after surgery to control or eradicate disease. 2. We focused our conversation today on surgery. We reviewed the surgical principles of a radical prostatectomy as well as the adverse effects including post-prostatectomy urinary incontinence and erectile dysfunction. Given the baseline minimal urinary symptoms, I believe that there is a relatively high probability (90-95%) that there will be no need for assisted (>2 years) pads/diapers; it may however require 6-12 months to achieve a pad-free state. We reviewed the use of Kegel exercises to facilitate the return of urinary continence. In terms of erectile dysfunction, I spoke frankly that the probability of a return of erections sufficient for sexual intercourse is likely no greater than 50% due to the baseline diminished erections, his comorbidities, and disease state. We spoke about the use of penile rehabilitation with the use of PDE-5 inhibitors and a vacuum erection device; I stated that there are additional options including penile injections and placement of a penile prosthesis that can be employed to achieve erections following surgery. I also explained that there are two common approaches: the open traditional approach and the robotic minimally invasive approach. These two approaches have the same surgical principles and therefore the cancer and functional outcomes are essentially identical. We discussed the risks of the procedures including bleeding, infection, injury to surrounding organs and bowel, post-surgical incontinence, post- surgical erectile dysfunction, deep venous thromboses, pulmonary emboli, stroke, heart attack, and loss of life. I emphasized that the risk of complications is elevated given the history of Crohn's disease and that surgery is not appropriate if he is experiencing a flare in that disease. Furthermore, the multitude of medical issues coupled with the chronic use of steroids also contributes to a higher than average complication risk. 3. Overall, I feel that Mr. Garay is an appropriate candidate for either surgical approach and I have preferentially offered him a robotic radical prostatectomy for management. He is aware that surgery will need to be delayed should he be actively experiencing a flare in Crohn's disease. I recommended pelvic floor physical therapy prior to surgery. Given the distance from home to [place], he will explore options for this physical therapy locally. Mr. Garay will also notify his doctor specifically his egg smeller regarding the plan for prostate cancer surgery in order to optimize his health prior to that procedure. Assessment & Plan (03/19/2020 2:37 PM EDT): Close follow-up with treating urologist-Dr. Schuster as scheduled. Prostate surgery postponed until GI issues addressed. Assessment & Plan (12/14/2019 8:32 PM EDT): Close follow-up with treating urologist-Dr. Schuster as scheduled. Resolved Problems Problem Noted Date Diagnosed Date Resolved Date On ustekinumab therapy 08/26/202307/28 Assessment & Plan (04/26/2024 4:30 PM EDT): Make sure to hold injection whenever running fever, feeling sick or taking antibiotics. Complete entire course of antibiotics and wait at least 48 hours after the last dose to make sure that infection does not recur before administering Stelara (ustekinumab) Monitor for any signs of infection and seek medical attention immediately. Inform any new [employer] about chronic immunosuppression with Stelara, prednisone and methotrexate particularly in emergency situations. Assessment & Plan (12/26/2023 4:10 PM EDT): Make sure to hold injection whenever running fever, feeling sick or taking antibiotics. Complete entire course of antibiotics and wait at least 48 hours after the last dose to make sure that infection does not recur before administering Stelara (ustekinumab) Monitor for any signs of infection and seek medical attention immediately. Inform any new [employer] about chronic immunosuppression with Stelara, prednisone and methotrexate particularly in emergency situations. Assessment & Plan (08/26/2023 11:30 AM EST): Make sure to hold injection whenever running fever, feeling sick or taking antibiotics. Complete entire course of antibiotics and wait at least 48 hours after the last dose to make sure that infection does not recur before administering Stelara (ustekinumab) Monitor for any signs of infection and seek medical attention immediately. Inform any new [employer] about chronic immunosuppression with Stelara, prednisone and methotrexate particularly in emergency situations. On methotrexate therapy 01/09/202207/07 Assessment & Plan (04/26/2024 4:30 PM EDT): Carefully continue injections every 7 days. Hold methotrexate whenever running fever, feeling sick or taking antibiotics. Complete entire course of antibiotic and wait at least 48 hours after the last dose to make sure that infection does not return. Refrain from alcohol drinking while on methotrexate. Monitor for breathing difficulty, chest pain, coughing, mucosal ulcerations, abdominal pain, nausea without diarrhea etc. Return for regular monitoring labs at least every 3 months-standing orders in epic. Make sure to inform any new [employer] about chronic immunosuppression with methotrexate and Remicade and prednisone in emergency situations. Assessment & Plan (12/26/2023 4:10 PM EDT): Carefully continue injections every 7 days. Hold methotrexate whenever running fever, feeling sick or taking antibiotics. Complete entire course of antibiotic and wait at least 48 hours after the last dose to make sure that infection does not return. Refrain from alcohol drinking while on methotrexate. Monitor for breathing difficulty, chest pain, coughing, mucosal ulcerations, abdominal pain, nausea without diarrhea etc. Return for regular monitoring labs at least every 3 months-standing orders in epic. Make sure to inform any new [employer] about chronic immunosuppression with methotrexate and Remicade and prednisone in emergency situations. Assessment & Plan (08/25/2023 3:47 PM EST): Carefully continue injections every 7 days. Hold methotrexate whenever running fever, feeling sick or taking antibiotics. Complete entire course of antibiotic and wait at least 48 hours after the last dose to make sure that infection does not return. Refrain from alcohol drinking while on methotrexate. Monitor for breathing difficulty, chest pain, coughing, mucosal ulcerations, abdominal pain, nausea without diarrhea etc. Return for regular monitoring labs at least every 3 months-standing orders in epic. Make sure to inform any new [employer] about chronic immunosuppression with methotrexate and Remicade and prednisone in emergency situations. Assessment & Plan (04/24/2023 4:49 PM EDT): Carefully continue injections every 7 days. Hold methotrexate whenever running fever, feeling sick or taking antibiotics. Complete entire course of antibiotic and wait at least 48 hours after the last dose to make sure that infection does not return. Refrain from alcohol drinking while on methotrexate. Monitor for breathing difficulty, chest pain, coughing, mucosal ulcerations, abdominal pain, nausea without diarrhea etc. Return for regular monitoring labs at least every 3 months-standing orders in [facility]. Make sure to inform any new [employer] about chronic immunosuppression with methotrexate and Remicade and prednisone in emergency situations. Assessment & Plan (05/17/2022 3:46 PM EDT): Carefully continue injections every 7 days. Hold methotrexate whenever running fever, feeling sick or taking antibiotics. Complete entire course of antibiotic and wait at least 48 hours after the last dose to make sure that infection does not return. Refrain from alcohol drinking while on methotrexate. Monitor for breathing difficulty, chest pain, coughing, mucosal ulcerations, abdominal pain, nausea without diarrhea etc. Return for regular monitoring labs at least every 3 months-standing orders in [facility]. Make sure to inform any new SMITA LANDA NP about chronic immunosuppression with methotrexate and Remicade and prednisone in emergency situations. Assessment & Plan (01/13/2022 6:13 PM EDT): Carefully continue injections every 7 days. Hold methotrexate whenever running fever, feeling sick or taking antibiotics. Complete entire course of antibiotic and wait at least 48 hours after the last dose to make sure that infection does not return. Refrain from alcohol drinking while on methotrexate. Monitor for breathing difficulty, chest pain, coughing, mucosal ulcerations, abdominal pain, nausea without diarrhea etc. Return for regular monitoring labs at least every 3 months-standing orders in [facility]. Make sure to inform any new [employer] about chronic immunosuppression with methotrexate and Remicade and prednisone in emergency situations. Congestion of upper respiratory tract 12/09/2018 03/21/2025 Assessment & Plan (12/15/2018 9:00 PM EDT): Keep well-hydrated. Use humidifier especially in the bedroom. 2-3 times daily rinsing of the throat and sinuses using Merlyn pot. If symptoms worsen or do not improve within the next 48 hours consider taking Z- Nakul and hold Entyvio if not completely cleared by the time he is due for next dose. On 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 10/12/2018 Assessment & Plan (01/23/2023 4:33 PM EDT): Continue as prescribed. Return for regular checkups at least every 3 months. Monitor for side effects including but not limited to abdominal pain, skin discoloration, rash, excessive bruising or fatigue. Assessment & Plan (05/17/2022 3:46 PM EDT): Continue as prescribed. Return for regular checkups at least every 3 months. Monitor for side effects including but not limited to abdominal pain, skin discoloration, rash, excessive bruising or fatigue. Assessment & Plan (01/09/2022 3:23 PM EDT): Continue as prescribed. Return for regular checkups at least every 3 months. Monitor for side effects including but not limited to abdominal pain, skin discoloration, rash, excessive bruising or fatigue. Assessment & Plan (09/10/2021 3:34 PM EST): Continue as prescribed. Return for regular checkups at least every 3 months. Monitor for side effects including but not limited to abdominal pain, skin discoloration, rash, excessive bruising or fatigue. Assessment & Plan (03/17/2020 3:19 PM EDT): Continue as prescribed. Return for regular checkups at least every 3 months. Monitor for side effects including but not limited to abdominal pain, skin discoloration, rash, excessive bruising or fatigue. Assessment & Plan (02/26/2019 3:12 PM EDT): Continue as prescribed. Return for regular checkups at least every 3 months. Monitor for side effects including but not limited to abdominal pain, skin discoloration, rash, excessive bruising or fatigue. Assessment & Plan (12/15/2018 9:03 PM EDT): Continue as prescribed. Return for regular checkups at least every 3 months. Monitor for side effects including but not limited to abdominal pain, skin discoloration, rash, excessive bruising or fatigue. Encounters Date Type Department Care Team Description 08/24/2025 3:40 PM EST Pre-Admission Testing [facility] Pre-Procedure Evaluation Department [place] [address] Luz Elena Infante MD 08/22/2025 Refill [facility] [address] [place] [id number] Order Mode, Abalone Sheller Medication Refill 08/20/2025 Lab Requisition [facility] [address] [place] [id number] Luz Elena Infante MD 08/17/2025 2:00 PM EST Telemedicine - audio only [facility] [address] [place] [id number] Luz Elena Infante MD 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 with other complication (Primary Dx) 08/15/2025 Refill [facility] [address] [place] [id number] Ute Asencio MD Medication Refill 08/04/2025 3:00 PM EDT Nurse Only [facility] [address] [place] [address] [place] [address] Caitlyn Hua MD Vitamin B12 deficiency (Primary Dx) 08/04/2025 Refill [facility] [address] [place] [id number] Patricia Roy CNP Medication Refill 07/28/2025 4:00 PM EDT Office Visit [facility] [address] [place] [address] Coral Crews MD Ankylosing spondylitis of cervical region (Primary Dx); 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 with complication; retirement current use of systemic steroids; On allopurinol therapy; Raynaud's disease without gangrene; On 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; Localized osteoporosis without current pathological fracture; Gastroesophageal reflux disease, unspecified whether esophagitis present; Vitamin B12 deficiency; Long-term use of immunosuppressant medication; Class 1 obesity due to excess calories with serious comorbidity and body mass index (BMI) of 32.0 to 32.9 in adult 07/25/2025 4:34 PM EDT - 07/25/2025 11:59 PM EDT Hospital Encounter [address] [address] Coral Crews MD Discharge Disposition: Home or Self Care 07/23/[address] [address] Caitlyn Hua MD Medication Refill 07/13/2025 11:45 AM EDT Office Visit [facility] [address] [address] Unknown, Unknown, Patricia Gloria, QUAN 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 with other complication (Primary Dx); Rectal prolapse; Loose stools 07/12/2025 Telephone [facility] [address] [address] Luz Elena Figueroa [place] 07/08/2025 Orders Only [facility] [address] [address] Ute Asencio MD 07/05/2025 3:00 PM EDT Nurse Only [address] [address] Caitlyn Hua MD Vitamin B12 deficiency (Primary Dx) 06/30/2025 Patient Outreach [facility] [address] [address] Ibeth Barfield, SOWMYA Administration (iCMP Discharge ) 06/30/2025 Patient Outreach [address] [address] Brynn Luciano, SOWMYA Program Discharge ([facility]) from Last 3 Months Immunizations Immunization Administration Dates Next Due COVID-19 (Pre-07/28) Pfizer Vaccine, mRNA, PF 03/20/2022,10/03/2021,03/01/2021,02/07 Pneumococcal polysaccharide PPSV23 06/18/2021 Td (adult),2 Lf Tetanus Toxo id, PF, Adsorbed 12/27/2022 Family History Medical History Relation Comments Bipolar disorder Daughter Coronary artery disease Father Coronary artery disease Mother Breast cancer Paternal Grandmother Breast cancer Sister Prostate cancer Neg Hx Relation Status Comments Daughter Alive Father Mother Paternal Grandmother Sister Social History Tobacco Use Types Packs/Day Years Used Date Smoking Tobacco: Never Smokeless Tobacco: Never Tobacco Cessation:Counseling Given: Not Answered Alcohol Use Standard Drinks/Week Comments Not Currently [...] Orientation Straight 06/23/2019 5: 39 AM EDT Last Filed Vital Signs Vital Sign Reading Time Taken Comments Blood Pressure 118/66 07/28/2025 3:55 PM EDT Pulse 106 07/28/2025 3:55 PM EDT Temperature 36.8 C (98.2 F) 03/21/2025 3:07 PM EDT Respiratory Rate 18 08/25/2024 11:35 AM EST Oxygen Saturation 96% 07/28/2025 3:55 PM EDT Inhaled Oxygen Concentration - - Weight 86.2 kg (190 lb) 08/24/2025 2:24 PM EST Height 162.6 cm (5' 4 ) 08/24/2025 2:24 PM EST Body Mass Index 32.61 08/24/2025 2:24 PM EST Plan of Treatment Upcoming Encounters Date Type Department Care Team (Latest Contact Info) Description 09/06/2025 3:00 PM EST Nurse Only [address] [place] [address] Caitlyn Hua MD 22 [facility] [address] [place] [address] [email or web address] 09/08/2025 2:45 PM EST Procedure visit [facility] [address] [place] [address] Patricia Roy, TELEPATHIST [address] [address] [email or web address] 09/[email or web address] Procedure Pass [facility] [address] [address] 09/09/2025 9:00 AM EST Hospital Encounter [facility] [address] [address] Luz Elena Infante MD [address] [place] [id number] [email or web address] 09/09/2025 9:00 AM EST Anesthesia Event [facility] [address] [address] Christi Saxena RN [email or web address] 09/09/2025 9:00 AM EST - 09/09/2025 10:00 AM EST Surgery [facility] [address] [address] Luz Elena Infante MD [address] [place] [address] [email or web address] COLONOSCOPY 09/20/2025 3:00 PM EST Office Visit [facility] [address] [place] [address] [place] [address] Caitlyn Hua MD 14 [place] [address], [address] [place] [address] 11/04/2025 4:00 PM EST Office Visit [facility] [address] [place] [address] Coral Crews MD [address] [place] [address], [address] [place] [address] [email or web address] Scheduled Procedures Name Priority Associated Diagnoses Date/Ti me COLONOSCOPY 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 with other complication 09/09/2025 9:00 AM EST Health Maintenance Due Date Last Done Comments HIV ONE-TIME SCREENING (18-65 YEARS) 1978 ZOSTER VACCINES (1 of 2) 1979 COLOGUARD 2005 FIT TEST 2005 FOBT 2005 SIGMOIDOSCOPY 2005 VIRTUAL COLONOSCOPY 2005 PNEUMOCOCCAL VACCINES (50+ years) (2 of 2 - PCV) 06/18/2022 06/18/2021 DEPRESSION SCREENING 03/28/2024 03/28/2023 INFLUENZA VACCINE (#1) 2025 COVID-19 VACCINE (2024- season) 2025 09/11/2022, 03/20/2022, 03/20/2022, Additional history exists CREATININE LEVEL 07/25/2026 07/25/2025, , 03/14/2025, Additional history exists POTASSIUM LEVEL 07/25/2026 07/25/2025, 04/05, 03/14/2025, Additional history exists COLONOSCOPY 08/12/2026 08/12/2024, 08/06, 04/25/2020, Additional history exists COLORECTAL CANCER SCREENING 08/12/2026 SCREENING FOR DIABETES 03/14/2028 03/14/2025, 2024 LIPID PANEL 03/14/2030 03/14/2025, 06/06, 06/19/2021 Adult Td,Tdap Booster 12/27/2032 12/27/2022 RSV VACCINE (1 - 1-dose 75+ series) 2035 HEPATITIS C SCREENING Completed 03/14/2023 SMOKING STATUS SCREENING (Once After 26 Yrs) Completed 08/17/2025 HEPATITIS A VACCINES Aged Out No long er eligible based on patient's age to complete this topic HIB VACCINES Aged Out No longer eligi ble based on patient's age to complete this topic MENINGOCOCCAL VACCINES (ACWY) Aged Out No longer eligible based on patient's age to complete this topic MENINGOCOCCAL VACCINES (B) Aged Out N o longer eligible based on patient's age to complete this topic Medical Devices Implanted Type Area Seasonal Package Handler Device Identifier Shelf Expiration Date Model / Serial / Lot Hernia Mesh Procedures Procedure Name Priority Date/Time Associated Diagnosis Comments PARASITE IDENTIFICATION (OVA AND PARASITES), TRAVEL HISTORY OR IMMUNOCOMPROMISED STOOL Today 08/20/2025 12:51 PM EST CLOSTRIDIOIDES (CLOSTRIDIUM) DIFFICILE, PCR Routine 08/20/2025 9:00 AM EST 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 with other complication FERRITIN Routine 08/19/2025 4:54 PM EST 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 with other complication IRON AND IRON BINDING CAPACITY Routine 08/19/2025 4:54 PM EST 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 with other complication VITAMIN B12 Routine 08/19/2025 4:54 PM EST 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 with other complication C-REACTIVE PROTEIN (CRP) Routine 08/19/2025 4:54 PM EST 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 with other complication QUANTIFERON-TB GOLD Routine 07/25/2025 4 :54 PM EDT Ankylosing spondylitis of cervical region 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 with complication retirement current use of systemic steroids Long-term use of immunosuppressant medication COMPREHENSIVE METABOLIC PANEL (CMP) Routine 07/25/2025 4:53 PM EDT Ankylosing spondylitis of cervical region 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 with complication 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 On 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 Localized osteoporosis without current pathological fracture C-REACTIVE PROTEIN (CRP) Routine 07/25/2025 4:53 PM EDT Ankylosing spondylitis of cervical region 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 with complication 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 On 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 Localized osteoporosis without current pathological fracture SEDIMENTATION RATE (ESR) Routine 07/25/2025 4:53 PM EDT Ankylosing spondylitis of cervical region 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 with complication retirement current use of systemic steroids On 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 Localized osteoporosis without current pathological fracture CBC AND DIFFERENTIAL Routine 07/25/2025 4:53 PM EDT Ankylosing spondylitis of cervical region 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 with complication retirement current use of systemic steroids On 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 Localized osteoporosis without current pathological fracture URIC ACID Routine 07/25/2025 4:53 PM EDT On allopurinol therapy LIPID PANEL Routine 03/14/2025 3:11 PM EDT Annual physical exam ENDOSCOPY, COLON 08/12/2024 11:09 AM EST HEPATITIS B SURFACE ANTIGEN Routine 03/14/2023 3:59 PM EDT 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 without complication from Last 3 Months or Most Recently Relevant to Health Maintenance Results * Parasite Identification (Ova and Parasites), Travel History or Immunocompromised Stool (08/20/2025 12:51 PM EST) Ova and Parasite, Microscopy, F SEE COMMENTS 08/26/2025 8:32 AM EST [facility] Comment: SOURCE: STOOL, STLP OVA AND PARASITE, MICROSCOPY, F FINAL No parasites seen. Cryptosporidium, Cyclospora, and microsporidia are not readily detected by this method. Single negative specimen does not rule out parasitic infection. Stool (Per Rectum) 08/20/2025 12:51 PM EST 08/20/2025 4:40 PM EST us Luz Elena Infante MD LAB BODY FLUIDS AND STOOL ORDERABLES Final Result [facility] (BEAKER) [address] [address], [facility] [phone] * Clostridioides (Clostridium) difficile, PCR (08/20/2025 9:00 AM EST) Pathologist [facility] C. difficile PCR Negative Negative 08/20/2025 2:05 PM EST [facility] Comment:Negative for C. diff icile Stool (Per Rectum) 08/20/2025 9:00 AM EST 08/20/2025 12:56 PM EST us Luz Elena Infante MD LAB BODY FLUIDS AND STOOL ORDERABLES Final Result [address] [address] * (ABNORMAL) Iron and Total Iron Binding Capacity (Iron/TIBC) (08/19/2025 4:54 PM EST) Pathologist [facility] Iron 30(L) 45 - 182 ug/dL 08/19/2025 6:23 PM [facility] Total Iron-Binding Capacity (TIBC) 268 220 - 460 ug/dL 08/19/2025 6:23 PM [facility] Transferrin Saturation 11(L) 14 - 50 % 08/19/2025 6:23 PM [facility] Blood (Blood) Venipuncture / Unknown 08/19/2025 4:54 PM EST 08/19/2025 5:16 PM EST us Luz Elena Infante MD LAB BLOOD BKR ORDERABLES Final Result Performing Organization Address City/[facility]/ZIP Co de Phone Number [address] [address] * (ABNORMAL) C-Reactive Protein (CRP) (08/19/2025 4:54 PM EST) Only the most recent of2 resultswithin the time period is included. C Reactive Protein 26.3(H) <10.0 mg/L 08/19/2025 6:23 PM EST [facility] Comment:NOTE: This reference range is for the evaluation of inflammation. Order CRP, High Sensitivity for cardiac risk status evaluation. Blood (Blood) Venipuncture / Unknown 08/19/2025 4:54 PM EST 08/19/2025 5:16 PM EST us Luz Elena Infante MD LAB BLOOD BKR ORDERABLES Final Result Performing Organization Address [facility]/ZIP Co de Phone Number [address] [address] * (ABNORMAL) Ferritin (08/19/2025 4:54 PM EST) Pathologist [facility] Ferritin 18(L) 30 - 400 ug/L 08/19/2025 6:23 PM EST [facility] Blood (Blood) Venipuncture / Unknown 08/19/2025 4:54 PM EST 08/19/2025 5:16 PM EST us Luz Elena Infante MD LAB BLOOD BKR ORDERABLES Final Result [address] [address] * Vitamin B12 (08/19/2025 4:54 PM EST) Vitamin B12 773 232 - 1,245 pg/mL 08/19/2025 7:26 PM EST [facility] Blood (Blood) Venipuncture / Unknown 08/19/2025 4:54 PM EST 08/19/2025 5:16 PM EST us Luz Elena Infante MD LAB BLOOD BKR ORDERABLES Final Result Performing Organization Address [facility] Co de Phone Number [address] [address] * Quantiferon-TB Gold (07/25/2025 4:54 PM EDT) [facility] QuantiFERON-TB Gold Negative Negative [facility] Comment: (NOTE) No interferon-gamma response to M. tuberculosis antigens was detected. Latent infection with M. tuberculosis is unlikely. A single negative result does not exclude infection with M. tuberculosis. In patients at high risk for M.tuberculosis infection, a second test should be considered in accordance with the 2017 ATS/IDSA/CDC Clinical Practice Guidelines for Diagnosis of Tuberculosis in Adults and Children [Lewinsohn DM et. al. Clin. Infect. Dis. 2017;64(2):111-115]. The reference range for the 'TB1 Ag minus Nil Result' and 'TB2 Ag minus Nil Result' is an Interferon-gamma level <0.35 IU/mL. TB1 Ag minus Nil 0.00 IU/mL [facility] TB2 Ag minus Nil 0.00 IU/mL [facility] Mitogen minus Nil 1.76 IU/mL [facility] Nil Result 0.03 IU/mL [facility] Blood 07/25/2025 4:54 PM EDT 07/25/2025 5:07 PM EDT us Coarl Crews MD LAB BLOOD ORDERABLES Fin al Result Performing Organization Address City/[facility]/ZIP Co de Phone Number [facility] [address] [place] [address] * (ABNORMAL) Comprehensive metabolic panel (07/25/2025 4:53 PM EDT) SODIUM 139 133 - 146 mmol/L [facility] POTASSIUM 4.4 3.3 - 5.1 mmol/L [facility] CHLORIDE 106 96 - 108 mmol/L [facility] CO2 20(L) 21 - 35 mmol/L [facility] BUN 21(H) 6 - 19 mg/dL [facility] CREATININE 1.00 0.5 - 1.5 mg/dL [facility] GLUCOSE 150(H) 70 - 99 mg/dL [facility] ALBUMIN 4.0 3.9 - 4.8 g/dL [facility] TOTAL PROTEIN 7.2 6.5 - 8.0 g/dL [facility] CALCIUM 9.0 8.4 - 10.3 mg/dL [facility] ALKALINE PHOSPHATASE 56 39 - 117 U/L [facility] TOTAL BILIRUBIN <0.2 0.0 - 1.2 mg/dL [facility] AST 13 0 - 37 U/L [facility] ALT 9 0 - 40 U/L [facility] GLOBULIN 3.2 1 - 4.8 g/dL [facility] EGFR 84 >59 mL/min/1.7 3m2 [facility] Comment:Estimated glomerular filtration rate calculated using the CKD-EPI refit equation. ANION GAP 17 10 - 20 mmol/L [facility] Blood 07/25/2025 4:53 PM EDT 07/25/2025 5:06 PM EDT us Coral Crews MD LAB BLOOD BKR ORDERABLES Final Result [facility] [address] [place] [address] * (ABNORMAL) Sedimentation rate (ESR) (07/25/2025 4:53 PM EDT) ESR 47(H) 0 - 20 mm/h [facility] Blood 07/25/2025 4:53 PM EDT 07/25/2025 5:06 PM EDT us Coral Crews MD LAB BLOOD BKR ORDERABLES Final Result [facility] [address] [place] [address] * (ABNORMAL) CBC and differential (07/25/2025 4:53 PM EDT) WBC 12.26(H) 4.00 - 11.00 K/uL [facility] RBC 3.66(L) 4.50 - 5.90 M/uL [facility] HGB 10.0(L) 13.5 - 17.5 g/dL [facility] HCT 33.9(L) 41.0 - 53.0 % [facility] PLT 266 150 - 450 K/uL [facility] MCV 92.6 80.0 - 100.0 fL [facility] MCH 27.3 27.0 - 31.0 pg [facility] MCHC 29.5(L) 32.0 - 36.0 g/dL [facility] RDW 18.0(H) 11.5 - 14.5 % [facility] MPV 9.8 8.4 - 12.0 fL [facility] NRBC 0.00 0.00 /100 WBCs [facility] ABSOLUTE NRBC 0.00 0.00 K/uL [facility] DIFF METHOD Auto [facility] NEUTS 85.5(H) 48.0 - 76.0 % [facility] LYMPHS 5.4(L) 18.0 - 41.0 % [facility] MONOS 5.6 4.0 - 11.0 % [facility] EOS 1.1 0.0 - 5.0 % [facility] BASOS 0.4 0.0 - 1.5 % [facility] Granulocytes, immature (%) 2.0(H) 0.0 - 0.9 % [facility] ABSOLUTE NEUTS 10.48(H) 1.92 - 7.60 K/uL [facility] ABSOLUTE LYMPHS 0.66(L) 0.72 - 4.10 K/uL [facility] ABSOLUTE MONOS 0.69 0.16 - 1.10 K/uL [facility] ABSOLUTE EOS 0.14 0.00 - 0.50 K/uL [facility] ABSOLUTE BASOS 0.05 0.00 - 0.15 K/uL [facility] Granulocytes, immature 0.24(H) 0.00 - 0.09 K/uL [facility] Blood 07/25/2025 4:53 PM EDT 07/25/2025 5:06 PM EDT us Coral Crews MD LAB BLOOD BKR ORDERABLES Final Result [address] [address] * Uric acid (07/25/2025 4:53 PM EDT) URIC ACID 4.8 2.4 - 7.0 mg/dL [facility] Blood 07/25/2025 4:53 PM EDT 07/25/2025 5:06 PM EDT us Coral Crews MD LAB BLOOD BKR ORDERABLES Final Result Performing Organization Address City/[facility]/ZIP Co de Phone Number [address] [address] * (ABNORMAL) Lipid panel (03/14/2025 3:11 PM EDT) HDL 77 mg/dL [facility] Comment: Interpretation <40 mg/dL: Low HDL cholesterol (major risk factor for CHD) Greater than or equal to 60 mg/dL: High HDL cholesterol ( negative risk factor for CHD) HDL - cholesterol is affected by a number of factors, e.g. smoking, excerise, hormones, sex and age. CHOLESTEROL 236 0 - 240 mg/dL [facility] TRIGLYCERIDES 118 30 - 160 mg/dL [facility] LDL 135(H) 50 - 129 mg/dL [facility] Comment: LDL levels in terms of risk for coronary heart disease: <100 mg/dL: Optimal 100-129 mg/dL: Near or above optimal 130-159 mg/dL: Borderline high 160-189 mg/dL: High >190 mg/dL: Very High CARDIAC RISK RATIO 3.1(L) 3.4 - 5.0 C [facility] Blood 03/14/2025 3:11 PM EDT 03/14/2025 3:17 PM EDT us Caitlyn Hua MD LAB BLOOD BKR ORDERABLES Final Result [address] [address] * ENDOSCOPY, COLON (08/12/2024 11:09 AM EST) Narrative Transcriptions Ute Asencio MD - 08/12/2024 11:09 AM EST [facility] Patient Name: Tre Jarrod Attending MD:: UTE ASENCIO MD, Procedure Date: 08/12/2024 11:09 AM Date of : 1960 Age: 64 Admit Type: Outpatient Gender: Male Room: [place] [address] Referring MD: CAITLYN HUA Exam Type: Colonoscopy Indications: High risk colon cancer surveillance: Crohn'scolitis of 8 (or more) years duration with one-third (ormore) of the colon involved, Last colonoscopy: August 2022, Disease activity assessment of Crohn'sdisease of the colon Medications: Propofol per Anesthesia Procedure: Informed consent was obtained from the patientafter discussion of the indications, limitations, alternatives, benefits, and risks of the procedure. Risks specifically discussed include but are not limited to medication reactions, missed lesions, bleeding, perforation, or the need for emergent surgery. Throughout the procedure, the patient's blood pressure, pulse, end-tidal CO2, and oxygensaturations were monitored continuously. The Olympus adult variable colonoscope CF-[id number] #4 was introduced through the anus and advanced to the terminal ileum, with identification of theappendiceal orifice and IC valve. The terminal ileum, ileocecal valve, appendiceal orifice, and rectum were photographed. The colonoscopy was performed without difficulty. The patient tolerated the procedurewell. The quality of the bowel preparation was good. The bowel preparation used was GoLYTELY via split dose instruction. Complications: No immediate complications. Estimated blood loss:None. Findings: The digital rectal exam was normal. Pertinent negatives include no anal lesion or abnormality. The perianal exam findings include mild rectal prolapse. Retroflex view was intentionally not performed, buta careful forward viewing was performed. Diffuse moderate inflammation characterized by congestion (edema), granularity and loss of vascularity was found in the entire colon. Therewere no ulcerations, though friability was noted. Four biopsies were taken every 10 cm with a cold forceps from the entire colon for Crohn's disease surveillance, total 9 levels. These biopsyspecimens were sent to Pathology. A few medium-mouthed diverticula were found in the sigmoid colon. The terminal ileum appeared normal, though the IC oriface was fixed in an open configuration.Biopsies were taken with a cold forceps for histology. Impression: - Mild rectal prolapse. found on perianal exam. - Diffuse moderate inflammation was found in the entire examined colon secondary to Crohn's disease with colonic involvement. Biopsied. - The examined portion of the ileum was normal. Biopsied. Recommendation: - Repeat colonoscopy in 2 years for surveillancebased on pathology results. - Taper prednisone. UTE ASENCIO MD 08/12/2024 11:48:15 AM This report has been signed electronically. Number of Addenda: 0 Note Initiated On: 08/12/2024 11:09 AM Procedure Code(s): --- Professional --- 85350, Colonoscopy, flexible; with biopsy, single or multiple --- Technical --- 58091, Colonoscopy, flexible; with biopsy, single or multiple Diagnosis Code(s): --- Professional --- K50.10, 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 without complications --- Technical --- K50.10, 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 without complications CPT copyright 2021 [employer]. All rights reserved. The codes documented in this report are preliminary and upon marketing graphics specialist reviewmay be revised to meet current compliance requirements. Procedure Date: 08/12/2024 11:09:27 AM [address] [place], [place] [id number] us Caitlyn Hua MD GI PROCEDURE ORDERABLES Edited Result - Final * Hepatitis B surface antigen (03/14/2023 3:59 PM EDT) HBV SURFACE ANTIGEN NON-REACTI VE NON-REACTI VE [facility] Blood 03/14/2023 3:59 PM EDT 03/14/2023 4:09 PM EDT us Ute Asencio MD LAB BLOOD BKR ORDERABLES F inal Result [facility] [address] [place] [address] from Last 3 Months or Most Recently Relevant to Health Maintenance Insurance * Guarantor: Tre Garay Account Type Relation to Patient Date of Phone Billing Address Personal/Family Self 1960 [address] [place] [address] MEDICARE PART A & [facility] * Guarantor: Tre Garay Account Type Relation to Patient Date of Phone Billing Address Personal/Family Self 1960 [address] [place] [address] MEDICARE PART A & B [place] MEDICARE PART A & B [facility] MEDICARE PART A & [address] [place], [place] [address]HEALTH MEDICARE PART A & B MEDICARE PART A & B Member Subscriber Plan / Payer ( fective 1999-Present) Name:Tre Garay Member ID:[id number] Relation to Subscriber:Self Name:Tre Garay Subscriber ID:[id number] Payer ID:[id number] Group ID:Not on file Type:Medicare Address: [employer] [address] [place] [id number] [place] * Guarantor: Tre Garay Account Type Relation to Patient Date of Phone Billing Address Personal/Family Self 1960 [address] [place] [address] MEDICARE PART A & [facility] * Guarantor: Tre Garay Account Type Relation to Patient Date of Phone Billing Address Personal/Family Self 1960 [address] [place] [address] MEDICARE PART A & [facility] Advance Directives For more information, please contact: [phone] (9AM - 5PM [place]/[facility], Friday-Friday) * Full Code (Latest Code Status on File) Date Activated Date Inactivated Comments 10/06/2023 8:44 PM Question Answer Comments Code Status Confirmed With: Patient Care Teams Customer Engagement Analyst Relationship Specialty Start Date End Date Caitlyn Hua MD [address] [place] [address], [address] [place] [address] [email or web address] PCP - General Internal Medicine 12/29/17 Lin Schuster MD [address] [place] [address], [address] [place] [address] [email or web address] Surgeon Urology 08/10/19 Caitlyn Hua MD [address] [place] [address], [address] [place] [address] [email or web address] Insurance Assigned Provider 01/10/24 James Fair MD [address] [place] [address] [id number] [place] [address] [email or web address] Medicine 11/13/20 Marina Reid MD [address] [place], [place] [address] [place] [address] [email or web address] Medical Oncology 11/21/20 Wilmer Cavazos MD [address] [place] [email or web address] 11/28/20 Vicenta Mahmood [address] [address] [email or web address] Aide Oncology 01/04/21 Additional Source Comments The information contained in this document represents components of the legal health record. It is not the complete legal health record.[facility]
--- OUTSIDE RECORDS SUMMARY | 2025-09-03 18:42 | XMS_ITS | Encounter Summary ---
Author Organization [facility] Address [address] [facility] [address] [place] [address] Phone Care Team Providers Care Sort Worker Name Role Phone Guevara Lundy MD Primary Care Provider Lj Hua MD Primary Care Provider Lin Schuster MD Unavailable Lj Hua MD Unavailable [phone] James Fair MD Unavailable Marina Reid MD Unavailable [phone] Wilmer Cavazos MD Unavailable [phone] Vicenta MahmoodSW Unavailable Ana [email or web address] Stephanie Aceves RN Unavailable [email or web address] Monica Bryson Unavailable matt Brynn Luciano RN Unavailable [phone] Encounter Details Date Type Department Care Team (Latest Contact Info) Description 12/23/2017 Transcribe Orders [facility] Phleb [address] [place] [address] Hernan Mishra MD [address] [address] 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 without complication (Primary Dx) Social History [...] Description 09/06/2025 3:00 PM EST Nurse Only [address] [address] Lj Hua MD 22 [facility], [address] [place] [address] [email or web address] 09/08/2025 2:45 PM EST Procedure visit [facility] 10 [place] [address] Patricia Roy, BIOFUELS ENGINEERING MANAGER [address] [address] [email or web address] 09/09/2025 Procedure Pass [facility] CRP ENDO DEPT [address] [address] 09/09/2025 9:00 AM EST Hospital Encounter [facility] CRP ENDO DEPT [address] [address] Luz Elena Infante MD [address] [place] [address] [email or web address] 09/09/2025 9:00 AM EST Anesthesia Event [facility] CRP ENDO DEPT [address] [address] Christi Saxena RN [email or web address] 09/09/2025 9:00 AM EST - 09/09/2025 10:00 AM EST Surgery [facility] CRP ENDO DEPT [address] [place] [address] Luz Elena Infante MD [address] [place] [address] [email or web address] COLONOSCOPY 09/20/2025 3:00 PM EST Office Visit [facility] Medicine [address] [place] [address] Lj Hua MD [address] [place] [address], [address] [place] [address] [email or web address] 11/04/2025 4:00 PM EST Office Visit [facility] Rheumatology [address] [place] [address] Coral Crews MD [address] [place] [address], [address] [place] [address] [email or web address] Scheduled Procedures Name Priority Associated Diagnoses Date/Ti me COLONOSCOPY 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 with other complication 09/09/2025 9:00 AM EST documented as of this encounter Results * (ABNORMAL) PSA (screening) (12/23/2017 12:08 PM EDT) PSA 5.34(H) 0 - 4.00 ng/mL [facility] Blood 12/23/2017 12:0 8 PM EDT 12/23/2017 12:15 PM EDT us Hernan Mishra MD LAB BLOOD BKR ORDERABLES F inal Result [facility] 30 [place] [address] documented in this encounter Visit Diagnoses Diagnosis 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 without complication- Primary Crohn's disease of [...] documented as of this encounter Care Teams Sort Worker Relationship Specialty Start Date End Date Kamron, Guevara Nichole MD [address] [place] [address] 10 & 12 [place] [address] [email or web address] PCP - General Internal Medicine 11/06/17 12/28/17 Lj Hua MD [address] [place] [address], [address] [place] [address] [email or web address] PCP - General Internal Medicine 12/29/17 Lin Schuster MD [address] [place] [address], [address] [place] [address] [email or web address] Surgeon Urology 08/10/19 Lj Hua MD [address] [place] [address] [address] [place] [address] Insurance Assigned Provider 01/10/24 James Fair MD [address] [place] [address] [email or web address] Internal Medicine 11/13/20 Marina Reid MD 450 [facility] [address] [place] [address] [email or web address] Medical Oncology 11/21/20 Wilmer Cavazos MD [address] [place] [address] MARINO@[facility]. U Urology 11/28/20 Vicenta Mahmood, [address] [address] [email or web address] Retail Shift Leader Oncology 01/04/21 Stephanie Purvis, SOWMYA [address] [place] [address] [email or web address]. [facility] PHCM Automotive Shop Foreman 02/24/23 06/08/25 Monica Bryson [address] [place] [address] [email or web address] PHC Community Refrigeration Houseman 05/31/24 05/31/24 Brynn Luciano, RN [address] [place] [address] PHCM Automotive Shop ForemanCoatings Inspector 06/09/25 06/29/25 documented as of this encounter Additional Source Comments The information contained in this document represents components of the legal health record. It is not the complete legal health record.[facility]
--- OUTSIDE RECORDS SUMMARY | 2025-09-03 18:42 | XMS_ITS | Encounter Summary ---
Author Organization [facility] Address [address] [facility] [address] [place] [address] Phone Care Team Providers Care Asset Management Analyst Name Role Phone Lj Hua MD Primary Care Provider Lin Schuster MD Unavailable [phone] Lj Hua MD Unavailable [phone] James Fair MD Unavailable Marina Reid MD Unavailable [phone] Wilmer Cavazos MD Unavailable [phone] Vicenta MahmoodSW Unavailable [email or web address]. Stephanie Aceves RN Unavailable [email or web address] Monica Bryson Unavailable matt Brynn Luciano RN Unavailable [phone] Encounter Details Date Type Department Care Team (Latest Contact Info) Description 07/22/2019 Transcribe Orders [facility] Phleb [address] [phone] Jacques Gomes MD [address] [facility], [address] [place], [place] [phone] [email or web address] Malignant neoplasm of prostate (Primary Dx) Social History Tobacco Use Types [...] Description 09/06/2025 3:00 PM EST Nurse Only [facility] 22 [place] [address] Lj Hua MD 22 [facility], [address] [place] [address] [email or web address] 09/08/2025 2:45 PM EST Procedure visit [facility] 10 [place] [address] Patricia Roy, MARSHMALLOW MACHINE OPERATOR [address] [address] [email or web address] 09/09/2025 Procedure Pass [facility] CRP ENDO DEPT [address] [address] 09/09/2025 9:00 AM EST Hospital Encounter [facility] CRP ENDO DEPT [address] [address] Luz Elena Infante MD [address] [place] [address] [email or web address] 09/09/2025 9:00 AM EST Anesthesia Event [facility] CRP ENDO DEPT [address] [address] Christi Saxena RN [email or web address] 09/09/2025 9:00 AM EST - 09/09/2025 10:00 AM EST Surgery [facility] CRP ENDO DEPT [address] [place] [address] Luz Elena Infante MD [address] [place] [address] [email or web address] COLONOSCOPY 09/20/2025 3:00 PM EST Office Visit [facility] Medicine [address] [place] [address] Lj Hua MD [address] [place] [address], [address] [place] [address] [email or web address] 11/04/2025 4:00 PM EST Office Visit [facility] Rheumatology [address] [place] [address] Coral Crews MD [address] [place] [address], [address] [place] [address] [email or web address] Scheduled Procedures Name Priority Associated Diagnoses Date/Ti me COLONOSCOPY 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 with other complication 09/09/2025 9:00 AM EST documented as of this encounter Results * (ABNORMAL) PSA (screening) (07/22/2019 2:48 PM EDT) PSA 7.37(H) 0 - 4.00 ng/mL [facility] Blood 07/22/2019 2:48 PM EDT 07/22/2019 2:53 PM EDT us Jacques Gomes MD LAB BLOOD BKR ORDERABLES Final R esult [facility] 30 [place] [address] documented in this encounter Visit Diagnoses Diagnosis Malignant neoplasm of prostate- Primary 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 with [...] documented as of this encounter Care Teams Asset Management Analyst Relationship Specialty Start Date End Date Lj Hua MD [address] [place] [address], [address] [place] [address] [email or web address] PCP - General Internal Medicine 12/29/17 Lin Schuster MD [address] [place] [address], [address] [place] [address] [email or web address] Surgeon Urology 08/10/19 Lj Hua MD [address] [place] [address], [address] [place] [address] [email or web address] Insurance Assigned Provider 01/10/24 James Fair MD [address] [place] [address] [address] [place] [address] [email or web address]@[email or web address] Internal Medicine 11/13/20 Marina Reid MD [address] [place] [address] [email or web address]@[email or web address] Medical Oncology 11/21/20 Wilmer Cavazos MD [address] [place] [address] [email or web address]@[email or web address]. U Urology 11/28/20 Vicenta Mahmood [address] [email or web address] Support Services Specialist Oncology 01/04/21 Stephanie Purvis, SOWMYA [address] [place] [address] [email or web address] PHCM Shoer 02/24/23 06/08/25 Monica Bryson [address] [place] [address] [email or web address] PHCM Community [employer] Forces Senior Sergeant 05/31/24 05/31/24 Brynn Luciano, RN [address] [place] [address] PHCM ShoerEnglish As A Second Language Teacher 06/09/25 06/29/25 documented as of this encounter Additional Source Comments The information contained in this document represents components of the legal health record. It is not the complete legal health record.[facility]
--- OUTSIDE RECORDS SUMMARY | 2025-09-03 18:42 | XMS_ITS | Encounter Summary ---
Author Organization [facility] Address [address] [facility] [address] [place] [address] Phone Care Team Providers Care Hotel Guest Service Agent Name Role Phone Lj Hua MD Primary Care Provider Lin Schuster MD Unavailable [phone] Lj Hua MD Unavailable [phone] James Fair MD Unavailable Marina Reid MD Unavailable [phone] Wilmer Cavazos MD Unavailable [phone] Vicenta MahmoodSW Unavailable [email or web address]. Stephanie Aceves RN Unavailable [email or web address] Monica Bryson Unavailable matt Brynn Luciano RN Unavailable [phone] Encounter Details Date Type Department Care Team (Latest Contact Info) Description 06/10/2020 Transcribe Orders [facility] Phleb [facility] 30 [place] [address] Hernan Mishra MD [address] [phone] Diarrhea, unspecified type (Primary Dx) Social History [...] Description 09/06/2025 3:00 PM EST Nurse Only [address] [address] Lj Hua MD [address] [place] [address], [address] [place] [address] [email or web address] 09/08/2025 2:45 PM EST Procedure visit [facility] G[facility]ology Clinic 10 [place] [address] Patricia Roy, COMMAND POST CRAFTSMAN [address] [address] [email or web address]. [facility] 09/09/2025 Procedure Pass [facility] CRP ENDO DEPT [address] [address] 09/09/2025 9:00 AM EST Hospital Encounter [facility] CRP ENDO DEPT [address] [address] Luz Elena Infante MD [address] [place] [address] [email or web address] 09/09/2025 9:00 AM EST Anesthesia Event [facility] CRP ENDO DEPT [address] [address] Christi Saxena RN [email or web address]@[email or web address] 09/09/2025 9:00 AM EST - 09/09/2025 10:00 AM EST Surgery [facility] CRP ENDO DEPT 165 [facility] 9th [place] [address] Luz Elena Infante MD [address] [place] [address] [email or web address] COLONOSCOPY 09/20/2025 3:00 PM EST Office Visit [address] [place] [address] Lj Hua MD [address] [place] [address], [address] [place] [address] [email or web address] 11/04/2025 4:00 PM EST Office Visit [facility] Rheumatology [address] [place] [address] [place] [address] Coral Crews MD [address] [place] [address], [address] [place] [address] [email or web address] Scheduled Procedures Name Priority Associated Diagnoses Date/Ti me COLONOSCOPY 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 with other complication 09/09/2025 9:00 AM EST documented as of this encounter Visit Diagnoses Diagnosis Diarrhea, unspecified [...] 04/14/2024 04/14/2024 5:05 PM EDT [facility] 11/29/2024 01/19/202512/0612/06/2024 1:22 AM EST [facility] 01/19/2025 01/19/2025 01/19/2025 11:0 8 PM EDT [facility] 08/17/2025 08/20/2025 08/20/2025 2:05 PM EST documented as of this encounter Care Teams Hotel Guest Service Agent Relationship Specialty Start Date End Date Lj Hua MD [address] [place] [address], [address] [place] [address] PCP - General Internal Medicine 12/29/17 Lin Schuster MD [address] [place] [address], [address] [place] [address] Surgeon Urology 08/10/19 Lj Hua MD [address] [place] [address], [address] [place] [address] Insurance Assigned Provider 01/10/24 James Fair MD [address] [place] [address] [address] [place] [address] [email or web address] Internal Medicine 11/13/20 Marina Reid MD [address] [place] [address] 1230 [place] [address] [email or web address] Medical Oncology 11/21/20 Wilmer Cavazos MD [address] [place] [address] [address] [place] [address] [email or web address].ED U Urology 11/28/20 Vicenta Mahmood, [facility] 45 [facility] [place], [facility] [address] [place] [address] [email or web address] Cad Cam Programmer Oncology 01/04/21 Stephanie Purvis, RN [address] [place] [address] [address] [place] [address] [email or web address]. [facility] PHCM Farm Loan Representative 02/24/23 06/08/25 Monica Bryson [address] [place] [address] [email or web address] PHCM Community Patch Machine Operator 05/31/24 05/31/24 Brynn Luciano, RN [address] [place] [address] [email or web address] PHCM Farm Loan RepresentativeEarring Maker 06/09/25 06/29/25 documented as of this encounter Additional Source Comments The information contained in this document represents components of the legal health record. It is not the complete legal health record.[facility]
--- OUTSIDE RECORDS SUMMARY | 2025-09-03 18:42 | XMS_ITS | Encounter Summary ---
Author Organization [facility] Address [address] [employer] [address] [place] [address] Phone Care Team Providers Care Partner Alliance Manager Name Role Phone Lj Hua MD Primary Care Provider Lin Schuster MD Unavailable Lj Hua MD Unavailable [phone] James Fair MD Unavailable Marina Reid MD Unavailable [phone] Wilmer Cavazos MD Unavailable [phone] Vicenta MahmoodSW Unavailable [email or web address] Stephanie Aceves RN Unavailable [email or web address] Monica Bryson Unavailable matt Brynn Luciano RN Unavailable [phone] Encounter Details Date Type Department Care Team (Late st Contact Info) Description 07/30/2018 Procedure Pass [facility] Endoscopy Admitting Dept Virtual Department 30 [place] [address] Social History Tobacco Use Types [...] 09/06/2025 3:00 PM EST Nurse Only [place] [address] [place] [address] Lj Hua MD 22 [facility], [address] [place] [address] [email or web address] 09/08/2025 2:45 PM EST Procedure visit [facility] Gastroenterology [facility] 10 [place] [address] Patricia Roy, QUAN [address] [address] [email or web address] 09/09/2025 Procedure Pass [facility] CRP ENDO DEPT [address] [address] 09/09/2025 9:00 AM EST Hospital Encounter [facility] CRP ENDO DEPT [address] [address] Luz Elena Infante MD [address] [place] [address] [email or web address] 09/09/2025 9:00 AM EST Anesthesia Event [facility] CRP ENDO DEPT [address] [address] Christi Saxena RN AELLIES@[email or web address] 09/09/2025 9:00 AM EST - 09/09/2025 10:00 AM EST Surgery [facility] CRP ENDO DEPT [address] [address] Luz Elena Infante MD [address] [place] [address] [email or web address] COLONOSCOPY 09/20/2025 3:00 PM EST Office Visit [facility] Family Medicine [address] [place] [address] Lj Hua MD [address] [place] [address], [address] [place] [address] 11/04/2025 4:00 PM EST Office Visit [facility] Rheumatology [address] [place] [address] Coral Crews MD [address] [place] [address], [address] [place] [address] [email or web address] Scheduled Procedures Name Priority Associated Diagnoses [...] documented as of this encounter Care Teams Partner Alliance Manager Relationship Specialty Start Date End Date Lj Hua MD [address] [place] [address], [address] [place] [address] [email or web address] PCP - General Internal Medicine 12/29/17 Lin Schuster MD [address] [place] [address], [address] [place] [address] [email or web address] Surgeon Urology 08/10/19 Lj Hua MD [address] [place] [address], [address] [place] [address] Insurance Assigned Provider 01/10/24 James Fair MD 450 [facility] [address] [place] [address] [email or web address] Internal Medicine 11/13/20 Marina Reid MD 450 [facility] 1230 [place] [address] [email or web address] Medical Oncology 11/21/20 Wilmer Cavazos MD [address] [place] [address] [address] [place] [address] [email or web address].[email or web address]. U Urology 11/28/20 Vicenta Mahmood, [address] [place] [address] [email or web address] Office Electrician Oncology 01/04/21 Stephanie Purvis, SOWMYA [address] [place] [address], [facility] [address] [place] [address] [email or web address]. [facility] PHCM Maintenance Plumber 02/24/23 06/08/25 Monica Bryson [address] [place] [address] [email or web address] PHCM Community Share Holder 05/31/24 05/31/24 Brynn Luciano, SOWMYA [address] [place] [id number] [email or web address] PHCM Maintenance PlumberStock Counter 06/09/25 06/29/25 documented as of this encounter Additional Source Comments The information contained in this document represents components of the legal health record. It is not the complete legal health record.[facility]
--- OUTSIDE RECORDS SUMMARY | 2025-09-03 18:43 | XMS_ITS ---
Author Organization [facility] Address [address] [place] [address] Phone Care Team Providers Care Antenna Design Engineer Name Role Phone Lj Hua MD Primary Care Provider Lin Schuster MD Unavailable Lj Hua MD Unavailable [phone] James Fair MD Unavailable Marina Reid MD Unavailable [phone] Wilmer Cavazos MD Unavailable [phone] Vicenta MahmoodSW Unavailable [email or web address] Problems Problem Noted Date Diagnosed Date [...] 3:31 PM EDT): Orders: Ambulatory referral to [facility] - Employed Practices Prediabetes 03/21/2025 Overview [...] prior to making appt.( Denise Angeles,DPM vs Michael RubinDPM vs Greg Fischer DPM vs Manish Martinez,DPM [...] March 22, right eye April 05 at [facility] with Dr. Marisela GONZALEZ-Jacob 10/06/2023 Overview (10/21/2023): Admitted for 2 nights to [facility] this month, now doing better Assessment & Plan (10/06/2023 8:27 PM EST): He states that he was feeling poorly at least since Kristal. This is at least 7 days ago [...] prevention strategies strongly encouraged. Recent BMD from [facility] on 06/23/2023 revealed: Left femoral neck T-score -2.6= osteoporosis, Left total hip T-score -1.8= osteopenia, Lumbar spine T score 0.9= normal, Left distal 1/3 radius T-score -0.7= osteopenia - see details in imaging section of epic Due to Crohn's disease he is unable [...] dental procedure. Interval BMD from 04/13/2025 at [facility] revealed osteoporosis in left femoral neck: [...] prevention strategies strongly encouraged. Recent BMD from [facility] on 06/23/2023 revealed: Left femoral neck T-score -2.6= osteoporosis, Left total hip T-score -1.8= osteopenia, Lumbar spine T score 0.9= normal, Left distal 1/3 radius T-score -0.7= osteopenia - see details in imaging section of [facility] Due to Crohn's disease he is unable [...] scheduled for interval BMD on 04/13/2025 at [facility]. Assessment & Plan (03/21/2025 3:31 PM EDT): Assessment & Plan (02/20/2025 8:59 PM EDT): He recalls severe reaction to Reclast several years ago- my knee blew up afterwards and had to be drained . Proper calcium and vitamin D supplementation, daily weightbearing exercises, fall and fracture prevention strategies strongly encouraged. Recent BMD from [facility] on 06/23/2023 revealed: Left femoral neck T-score -2.6= osteoporosis, Left total hip T-score -1.8= osteopenia, Lumbar spine T score 0.9= normal, Left distal 1/3 radius T-score -0.7= osteopenia - see details in imaging section of [facility] Due to Crohn's disease he is unable [...] scheduled for interval BMD on 04/13/2025 at [facility]. Assessment & Plan (08/22/2024 7:45 PM EST): He recalls severe reaction to Reclast several years ago- my knee blew up afterwards and had to be drained . Proper calcium and vitamin D supplementation, daily weightbearing exercises, fall and fracture prevention strategies strongly encouraged. Recent BMD from [facility] on 06/23/2023 revealed: Left femoral neck T-score -2.6= osteoporosis, Left total hip T-score -1.8= osteopenia, Lumbar spine T score 0.9= normal, Left distal 1/3 radius T-score -0.7= osteopenia - see details in imaging section of [facility] Due to Crohn's disease he is unable [...] prevention strategies strongly encouraged. Recent BMD from [facility] on 06/23/2023 revealed: Left femoral neck T-score -2.6= osteoporosis, Left total hip T-score -1.8= osteopenia, Lumbar spine T score 0.9= normal, Left distal 1/3 radius T-score -0.7= osteopenia - see details in imaging section of [facility] On 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 04/24/2023 Assessment & Plan [...] would like to have a referral to [facility] inflammatory bowel disease clinic for [...] Make sure to inform any new MD, BIZTALK ARCHITECT, PA about chronic immunosuppression especially in emergency situations. Assessment & Plan (05/22/2025 9:51 PM EDT): Carefully continue IV Skyrizi 600 mg infusion every 8 weeks after first loading IV dose on 06/30/2024 versus switch over to daily oral Rinvoq (upadacitinib) versus subcutaneous every 8 weeks Tremfya (guselkumab). Make sure to inform any new MD, BIZTALK ARCHITECT, PA about chronic immunosuppression especially in emergency situations. Assessment & Plan (03/21/2025 3:31 PM EDT): Assessment & Plan (01/26/2025 5:33 PM EDT): Carefully continue IV Skyrizi 600 mg infusion every 8 weeks after first loading IV dose on 06/30/2024. Make sure to inform any new MD, BIZTALK ARCHITECT, PA about chronic immunosuppression especially in emergency situations. Assessment & Plan (11/22/2024 11:35 AM EST): Carefully continue IV Skyrizi 600 mg infusion every 8 weeks after first loading IV dose on 06/30/2024. Make sure to inform any new EMILY LANDA PA about chronic immunosuppression especially in emergency situations. Assessment & Plan (08/22/2024 7:37 PM EST): Carefully continue IV Skyrizi 600 mg infusion every 4 weeks x 3 after first loading IV dose on 06/30/2024. Make sure to inform any new EMILY LANDA PA about chronic immunosuppression especially in emergency situations. Assessment & Plan (04/26/2024 4:29 PM EDT): Carefully continue subcutaneous Stelara injections every 8 weeks after first loading IV dose today. Make sure to inform any new EMILY LANDA PA about chronic immunosuppression especially in emergency situations. Assessment & Plan (12/26/2023 4:10 PM EDT): Carefully continue subcutaneous Stelara injections every 8 weeks after first loading IV dose today. Make sure to inform any new EMILY LANDA PA about chronic immunosuppression especially in emergency situations. Assessment & Plan (04/24/2023 10:20 PM EDT): Carefully continue subcutaneous Stelara injections every 8 weeks after first loading IV dose today. Make sure to inform any new EMILY LANDA PA about chronic immunosuppression especially in emergency situations. Assessment & Plan (02/18/2023 3:05 PM EDT): Continue Inflectra infusions as scheduled by his sand mill grinder every 6 weeks. Make sure to inform any new EMILY LANDA, PA about chronic immunosuppression particularly in emergency situations. Assessment & Plan (10/04/2021 9:13 PM EST): Continue Inflectra infusions as scheduled by his sand mill grinder every 6 weeks. Make sure to inform any new MD BIZTALK ARCHITECT, PA about chronic immunosuppression particularly in emergency situations. Assessment & Plan (03/19/2020 2:38 PM EDT): Continue Entyvio infusions as scheduled by his sand mill grinder every 8 weeks. Make sure to inform any new EMILY LANDA, PA about chronic immunosuppression particularly in emergency situations. Assessment & Plan (11/22/2019 3:57 PM EST): Continue infusions as scheduled by his sand mill grinder every 8 weeks. Make sure to inform any new EMILY LANDA, PA about chronic immunosuppression particularly in emergency situations. Assessment & Plan (09/06/2019 9:54 AM EST): Continue infusions as scheduled by his sand mill grinder every 8 weeks. Make sure to inform any new EMILY LANDA, PA about chronic immunosuppression particularly in emergency situations. Assessment & Plan (03/06/2019 9:33 PM EDT): Continue infusions as scheduled by his sand mill grinder every 8 weeks. Make sure to inform [...] close follow-up with his urologist as scheduled. USP current use of systemic steroids 03/13 Assessment [...] is awaiting second opinion GI consult at [facility]. Gentle, regular ROM, stretching and me strengthening exercises. Get labs prior to next visit - standing orders in [facility] Apply topical Aspercreme, Arnica or Biofreeze toward [...] to next visit - standing orders in [facility] Apply topical Aspercreme, Arnica or Biofreeze toward [...] to next visit - standing orders in [facility] Apply topical Aspercreme, Arnica or Biofreeze toward [...] to next visit - standing orders in [facility] Apply topical Aspercreme, Arnica or Biofreeze toward [...] to next visit - standing orders in [facility] Apply topical Aspercreme, Arnica or Biofreeze toward [...] to next visit - standing orders in [facility] Apply topical Aspercreme, Arnica or Biofreeze toward [...] to next visit - standing orders in [facility] Apply topical Aspercreme, Arnica or Biofreeze toward [...] to next visit - standing orders in [facility] Apply topical Aspercreme, Arnica or Biofreeze toward [...] to next visit - standing orders in [facility] Apply topical Aspercreme, Arnica or Biofreeze toward [...] to next visit - standing orders in [facility] Apply topical Aspercreme, Arnica or Biofreeze toward [...] to next visit - standing orders in [facility] Apply topical Aspercreme, Arnica or Biofreeze toward [...] to next visit - standing orders in [facility] Apply topical Aspercreme, Arnica or Biofreeze toward [...] lowering. March 2025: on Skyrizi with Dr Mishra. Sx not well controlled per pt Assessment & Plan (07/28/2025 4:03 PM EDT): Carefully continue prednisone and SKYRIZI as prescribed and follow closely with sand mill grinder as scheduled. If no expected benefit may need to switch to a different DMARD such as Rinvoq (upadacitinib) versus Tremfya (guselkumab) or consider surgical colectomy. Assessment & Plan (05/22/2025 9:49 PM EDT): Carefully continue prednisone and SKYRIZI as prescribed and follow closely with sand mill grinder as scheduled. If no expected benefit may need to switch to a different DMARD such as Rinvoq (upadacitinib) versus Tremfya (guselkumab) or consider surgical colectomy. Assessment & Plan (03/21/2025 3:31 PM EDT): Assessment & Plan (01/26/2025 5:31 PM EDT): Carefully continue prednisone and SKYRIZI as prescribed and follow closely with sand mill grinder as scheduled. If no expected benefit may need to consider surgical colectomy. Assessment & Plan (10/28/2024 4:20 PM EST): Carefully continue prednisone and SKYRIZI as prescribed and follow closely with sand mill grinder as scheduled. If no expected benefit may need to consider surgical colectomy. Assessment & Plan (07/28/2024 4:40 PM EDT): Carefully continue prednisone and SKYRIZI as prescribed and follow closely with sand mill grinder as scheduled. If no expected benefit may [...] (ustekinumab) as prescribed and follow closely with sand mill grinder as scheduled. If no expected benefit may need to consider surgical colectomy. Assessment & Plan (04/24/2023 10:15 PM EDT): Carefully continue prednisone and Stelara (ustekinumab) as prescribed and follow closely with sand mill grinder as scheduled. If no expected benefit may need to consider surgical colectomy. Assessment & Plan (01/23/2023 4:32 PM EDT): Carefully continue prednisone and Inflectra as prescribed and follow closely with sand mill grinder as scheduled. If no expected benefit may need to consider surgical colectomy. Assessment & Plan (05/17/2022 3:45 PM EDT): Carefully continue prednisone and Inflectra as prescribed and follow closely with sand mill grinder as scheduled. If no expected benefit may need to consider surgical colectomy. Assessment & Plan (01/09/2022 3:21 PM EDT): Carefully continue prednisone and Inflectra as prescribed and follow closely with sand mill grinder as scheduled. If no expected benefit may need to consider surgical colectomy. Assessment & Plan (10/04/2021 9:12 PM EST): Carefully continue prednisone and Inflectra as prescribed and follow closely with sand mill grinder as scheduled. If no expected benefit may need to consider surgical colectomy. Assessment & Plan (03/19/2020 2:38 PM EDT): Due to recent ongoing rectal bleeding, anemia he is awaiting abdominal CT. Carefully continue prednisone and Entyvio as prescribed and follow closely with sand mill grinder as scheduled. Assessment & Plan (11/22/2019 3:57 PM EST): Carefully continue prednisone and Entyvio as prescribed and follow closely with sand mill grinder as scheduled. Assessment & Plan (05/28/2019 3:18 PM EDT): Carefully continue prednisone and Entyvio as prescribed and follow closely with sand mill grinder as scheduled. Assessment & Plan (02/26/2019 3:10 PM EDT): Carefully continue prednisone and Entyvio as prescribed and follow closely with sand mill grinder as scheduled. Assessment & Plan (12/15/2018 9:02 PM EDT): Carefully continue prednisone and Entyvio as prescribed and follow closely with sand mill grinder as scheduled. Prostate cancer 12/29/2017 Overview (03/21/2025): sees Dr Gomes locally and Dr. Phelan at [facility] dx 2016, in active surveillance. June [...] with local urologist and oncology team at [facility]. Offered prostatectomy however delayed due to his severe inflammatory bowel disease and prednisone dependence. Assessment & Plan (03/21/2025 3:31 PM EDT): Assessment & Plan (02/20/2025 8:57 PM EDT): Most recent PET/CT revealed no spread of prostate cancer-follows closely with local urologist and oncology team at [facility]. Offered prostatectomy however delayed due to his severe inflammatory bowel disease and prednisone dependence. Assessment & Plan (04/24/2023 10:10 PM EDT): Most recent PSA improved-follows closely with local urologist and oncology team at [facility]. Offered prostatectomy however delayed due to [...] clinical stage T1c intermediate risk prostate cancer (Wayne score 4+3=7, PSA 7.5 ng/mL). He has [...] that there will be no need for salvage determiner (>2 years) pads/diapers; it may however require [...] surgery. Given the distance from home to [place], he will explore options for this physical therapy locally. Mr. Garay will also notify his doctor specifically his sand mill grinder regarding the plan for prostate cancer surgery in order to optimize his health prior to that procedure. Assessment & Plan (03/19/2020 2:37 PM EDT): Close follow-up with treating urologist-Dr. Schuster as scheduled. Prostate surgery postponed until GI issues addressed. Assessment & Plan (12/14/2019 8:32 PM EDT): Close follow-up with treating urologist-Dr. Schuster as scheduled. Current Treatment and Therapy Plans No current plan information found. Other Current Plans RISANKIZUMAB IV* Plan Start Date:06/30/2024 Plan Provider:Hernan Mishra MD Linked Problems Crohn's disease of large bow el Treatment Medications No medications scheduled. Past Treatment and Therapy Plans Resolved Problems Problem Noted Date Diagnosed Date [...] attention immediately. Inform any new SMITA LANDA NP about chronic immunosuppression with Stelara, prednisone and [...] attention immediately. Inform any new SMITA LANDA NP about chronic immunosuppression with Stelara, prednisone and [...] attention immediately. Inform any new SMITA LANDA NP about chronic immunosuppression with Stelara, prednisone and [...] at least every 3 months-standing orders in [facility]. Make sure to inform any new SMITA LANDA BIZTALK ARCHITECT about chronic immunosuppression with methotrexate and Remicade [...] at least every 3 months-standing orders in [facility]. Make sure to inform any new SMITA LANDA BIZTALK ARCHITECT about chronic immunosuppression with methotrexate and Remicade [...] sure to inform any new SMITA LANDA BIZTALK ARCHITECT about chronic immunosuppression with methotrexate and Remicade [...] at least every 3 months-standing orders in [facility]. Make sure to inform any new SMITA LANDA BIZTALK ARCHITECT about chronic immunosuppression with methotrexate and Remicade [...] at least every 3 months-standing orders in [facility]. Make sure to inform any new SMITA LANDA BIZTALK ARCHITECT about chronic immunosuppression with methotrexate and Remicade and prednisone in emergency situations. Congestion of upper respiratory tract 12/09/2018 03/21/2025 Assessment & Plan (12/15/2018 9:00 PM EDT): Keep well-hydrated. Use humidifier especially in the bedroom. 2-3 times daily rinsing of the throat and sinuses using Hoodsport pot. If symptoms worsen or do not [...]
--- OUTSIDE RECORDS SUMMARY | 2025-09-03 18:43 | XMS_ITS | Encounter Summary ---
Author Organization [facility] Address [address] [place] [address] Phone Care Team Providers Care Traffic Checker Name Role Phone Lj Hua MD Primary Care Provider [phone] Lin Schuster MD Unavailable [phone] Lj Hua MD Unavailable [phone] James Fair MD Unavailable Marina Reid MD Unavailable [phone] Wilmer Cavazos MD Unavailable [phone] Vicenta MahmoodSW Unavailable [email or web address] Aceves RN Unavailable [email or web address] Brynn Luciano RN Unavailable Encounter Details Date Type Department Care Team (Late st Contact Info) Description 08/12/2024 Procedure Pass [facility] Endoscopy Admitting Dept Virtual Department [address] [place] [address] Social History Tobacco Use Types Packs/Day Years [...] Description 09/06/2025 3:00 PM EST Nurse Only [address] [address] Lj Hua MD [address] [facility] [place] [address] 09/08/2025 2:45 PM EST Procedure visit [facility] [address] [place] [address] Patricia Roy, QUAN [address] [address] [email or web address] 09/09/2025 Procedure Pass [facility] [address] [facility] 9th [place] [address] 09/09/2025 9:00 AM EST Hospital Encounter [facility] [address] [address] Luz Elena Infante MD [address] [place] [address] [email or web address] 09/09/2025 9:00 AM EST Anesthesia Event [facility] [address] [address] Christi Saxena [email or web address] 09/09/2025 9:00 AM EST - 09/09/2025 10:00 AM EST Surgery [facility] [address] [address] Luz Elena Infante MD [address] [place] [address] [email or web address] COLONOSCOPY 09/20/2025 3:00 PM EST Office Visit [address] [place] [address] Lj Hua MD [address] [place] [address], [address] [place] [address] [email or web address] 11/04/2025 4:00 PM EST Office Visit [facility] Rheumatology [address] [place] [address] [place] [address] Coral Crews MD [address] [place] [address], [address] [place] [address] [email or web address] Scheduled Procedures Name Priority Associated Diagnoses Date/Ti me COLONOSCOPY 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 with other complication 09/09/2025 9:00 AM EST documented as of this encounter Visit Diagnoses Not on filedocumented in this encounter Additional Health Concerns Infection Onset Date Last Indicated Resolved Time CDiff-Risk 11/29/2024 01/19/202512/0612/06/2024 1:22 AM EST CDiff-Risk 01/19/2025 01/19/2025 01/19/2025 11:0 8 PM EDT CDiff-Risk 08/17/2025 08/20/2025 08/20/2025 2:05 PM EST Assessment Noted Time PHQ-2 Depression Total Score: 2 03/28/20 23 1:26 PM EDT documented as of this encounter Care Teams Traffic Checker Relationship Specialty Start Date End Date Lj Hua MD [address] [place] [address], [address] [place] [address] [email or web address] PCP - General Internal Medicine 12/29/17 Lin Schuster MD [address] [place] [address], [address] [place] [address] Surgeon Urology 08/10/19 Lj Hua MD [address] [place] [address], [address] [place] [address] [email or web address] Insurance Assigned Provider 01/10/24 James Fair MD [address] [place] [address] [address] [place] [address] [email or web address] Internal Medicine 11/13/20 Marina Reid MD [address] [place] [address] [place] [address] [email or web address] Medical Oncology 11/21/20 Wilmer Cavazos MD [address] [place] [address] [address] [place] [address] [email or web address] [email or web address] 11/28/20 Vicenta Mahmood, BOOKING SUPERVISOR [address] [place] [address] [place] [address] [email or web address] [employer]ite Machine Bluer Oncology 01/04/21 Stephanie Purvis, SOWMYA [address] [place] [address] [address] [place] [address] [email or web address] PHCM Bark Skinner 02/24/23 06/08/25 Brynn Luciano, RN [address] [place] [id number] [email or web address] PHCM Bark SkinnerChemist Proteins 06/09/25 06/29/25 documented as of this encounter Additional Source Comments The information contained in this document represents components of the legal health record. It is not the complete legal health record.[facility]
--- NOTE | 2025-09-03 19:43 | ECG_ITS ---
Test Reason : REPEAT, SOB Blood Pressure : */* mmHG Vent. Rate : 90 BPM Atrial Rate : 90 BPM P-R Int : 198 ms QRS Dur : 96 ms QT Int : 380 ms P-R-T Axes : * -43 14 degrees QTcB Int : 464 ms Sinus rhythm with occasional Premature ventricular complexes Left axis deviation Incomplete right bundle branch block Abnormal ECG When compared with ECG of 03-Sep-2025 18:28, Vent. rate has decreased by 65 bpm Referred By: Corrie Villeda Electronically Signed By: SURYA JOHNSON
[2025-09-03 19:46] VITALS: O2SAT 93; O2SAT 95
[2025-09-03 20:13] VITALS: BP 139/85; PULSE 82; RESP 16; TEMP 36.7
[2025-09-03 20:45] VITALS: BP 139/85; PULSE 82; RESP 16; TEMP 36.7
== END 2025-09-03 20:46 | disposition home or self-care (01) ==
PROVIDERS: Physician Assistant Medical; Emergency Provider Emergency Medicine; PCP Internal Medicine
DX: U07.1 COVID-19 (principal); J02.9 Acute pharyngitis, unspecified; R11.0 Nausea; R06.02 Shortness of breath; I45.10 Unspecified right bundle-branch block; Z79.899 Other long term (current) drug therapy
CPT/HCPCS: 71046; 80053; 83735; 85025; 87635; 93005; 96361; 96374; 99284; 99285; J2405

== ENCOUNTER → 2025-09-03 18:21 | Outpatient (BNV) | payer MEDICARE, MEDICAID, SELFPAY | PROVIDERS: Emergency Provider Emergency Medicine; PCP Internal Medicine; Visit Provider Internal Medicine | DX: I44.4 Left anterior fascicular block (principal); I49.3 Ventricular premature depolarization; I45.10 Unspecified right bundle-branch block | CPT/HCPCS: 93010 ==